=== PATIENT | male | born 1975 | race Two or more races ===

== ENCOUNTER 2020-11-10 11:17 | Outpatient (REF) | payer SELFPAY | END 2020-11-10 11:18 | disposition home or self-care (01) | LOC: HO.LAB 11:17 | PROVIDERS: Visit Provider Internal Medicine | DX: Z20.822 Contact with and (suspected) exposure to COVID-19 (principal) | CPT/HCPCS: 36415; C9803; U0003; U0005 ==

== ENCOUNTER 2021-12-20 06:22 | Emergency (ER) | payer SELFPAY ==
--- NOTE | ~2021-12-20 | CT_ITS ---
EXAMINATION: CT ABDOMEN AND PELVIS WITHOUT CONTRAST CLINICAL INFORMATION: Right flank pain COMPARISON: Ultrasound abdomen 09/16/2018 TECHNIQUE: Multidetector volumetric imaging was performed from the superior aspect of the liver through the pubic symphysis. Sagittal and coronal reformatted images were obtained on the technologist's workstation. This CT examination was performed using dose optimization techniques as appropriate, variously including the following: *Automated exposure control *Adjustment of mA and/or kV according to patient size (this includes techniques or standardized protocols for targeted exams where dose is matched to indication/reason for exam; i.e. extremities or head) *Use of iterative reconstruction technique DLP: 709 mGy-cm FINDINGS: LUNG BASES: There is a 4 mm nodule right middle lobe. There is platelike atelectasis left lung base. The heart size is normal. LIVER, GALLBLADDER, AND BILIARY TREE: The liver is normal in size, shape, and attenuation. No focal hepatic lesion or biliary ductal dilatation is present. The gallbladder is unremarkable with no evidence of radiopaque gallstones, gallbladder wall thickening, or obvious pericholecystic inflammatory changes. PANCREAS: Unremarkable. SPLEEN: Unremarkable. ADRENAL GLANDS: Unremarkable. KIDNEYS AND URETERS: The kidneys are normal in size, shape, and attenuation. No hydronephrosis, hydroureter, or calculi seen. No perinephric stranding. BLADDER: Unremarkable. GASTROINTESTINAL TRACT: There is scattered stool, diverticuli and gas seen throughout the colon without distention or diverticulitis. The small bowel loops are normal caliber. Appendix is not visualized. ABDOMINAL WALL: There is a small lumbar canal hernia containing fat. LYMPH NODES: Normal. VASCULAR: Unremarkable. PELVIC VISCERA: The prostate gland is normal size. There is no free fluid or free air. OSSEOUS STRUCTURES: Unremarkable. CT/CT abdomen pelvis wo con IMPRESSION: No acute intra-abdominal process seen. Mild constipation and scattered colonic diverticulosis. Small umbilical hernia containing intraperitoneal fat. No radiopaque urolith or hydroureteronephrosis. Fleischner guidelines were followed.
[2021-12-20 06:26] VITALS: BP 199/125; PULSE 85; RESP 16; TEMP 36.6; O2SAT 98; BMI 31.1
[2021-12-20 07:07] VITALS: BP 179/112; PULSE 82; RESP 14; O2SAT 97
--- NOTE | 2021-12-20 07:51 | ED_ITS ---
HPI - Back Pain/Injury General Chief Complaint: Back Pain/Injury Stated Complaint: back pain x3 days Time Seen by Provider: 12/20/21 07:44 Source: patient, family ( daughter) and historic interpreter Mode of arrival: ambulatory Limitations: no limitations History of Present Illness HPI Narrative: 46-year-old male came in for evaluation of right flank pain. Pain started about a week ago, describes the pain as severe pain 10/10, dull aching, localized to the right flank area with no radiation, pain is worsening with movement, no relieving factor, no associations of fever chills, history of heavy lifting at work, declined any dysuria or hematuria. No fever Or chills. Related Data Previous Rx's Medication Instructions Recorded amlodipine 5 mg tablet 5 mg PO DAILY #30 tab 12/20/21 Allergies Allergy/AdvReac Type Severity Reaction Status Date / Time No Known Allergies Allergy Mild NONE Unverified 06/22/20 16:05 Review of Systems Review of Systems: all other systems are reviewed and are negative Constitutional: Reports as per HPI and Reports no additional constitutional complaints Eyes: Reports as per HPI and Reports no additional eye complaints Reports system reviewed and no additional complaints, except as documented Cardiovascular: Reports as per HPI and Reports no additional cardiovascular complaints Respiratory: Reports as per HPI and Reports no additional respiratory complaints Gastrointestinal: Reports as per HPI and Reports no additional gastrointestinal complaints Genitourinary: Reports no additional female genitourinary complaints Musculoskeletal: Reports no additional musculoskeletal complaints Skin/Breast: Reports system reviewed and no additional complaints, except as docu Psychiatric: Reports no additional psychiatric complaints Endocrine: Reports no additional endocrine complaints Hematologic/Lymphatic: Reports no additional hematologic/lymphatic complaints Allergic/Immunologic: Reports no additional allergic/immunologic complaints Reports system reviewed and no additional complaints, except as documented and Reports Abnormal speech present [facility] Social History Social History Advance Directives: No Advance Directives Information Provided: No Physical Exam Vital Signs: Vital Signs: Last Vital Signs Temp 97.8 F 12/20/21 06:26 Pulse 85 12/20/21 10:11 Resp 16 12/20/21 10:11 BP 160/115 H 12/20/21 12:11 Pulse Ox 98 12/20/21 10:11 BMI result Body Mass Index 31.1 vital signs have been reviewed as appeared to be correct. Blood pressure elevated. Heart rate normal. Respiration rate normal. Temperature normal. Oxygen saturation normal. Appearance: Alert. Oriented X3. No acute distress. Head: Normal external exam. Normocephalic. Atraumatic. No Segura signs noted. No raccoon eyes noted Eyes: PERRLA. EOMI. Conjunctiva and sclera normal. Eyelids normal. ENT: TM's Normal. Pharynx normal. Uvula midline. Moist mucous membranes. No trismus noted. No drooling noted. No muffled voice noted. Neck: Normal inspection. Neck supple. FROM. No adenopathy. Thyroid Normal. No meningeal signs. No neck mass noted. CVS: Normal heart rate and rhythm. Heart sound normal. No murmurs noted. Pulses normal throughout. Respiratory: No respiratory distress. Painless inspiration. Breath sounds normal. No wheezes/rales/rhonchi noted. Chest nontender. No accessory muscle usage noted or decreased air movement noted. Abdomen: Soft and nontender. Bowel sounds normal in all 4 quadrants. No distention noted. No organomegaly noted. No visible injury noted. Back: No CVA tenderness. Full range of motion noted. Skin: Skin warm and dry. Normal skin color. Normal skin turgor. No rashes/lesions/lacerations noted. Extremities: No lower extremity edema. Extremities exhibit normal range of motion. Extremities nontender. Neuro: Oriented X 3. Cranial nerve exam: II-XII are grossly intact No motor deficit. No sensory deficit. Reflexes normal. Course Course Course Narrative: Assessment and plan. 46-year-old male came in with right flank pain, CT and UE ruled out kidney stone, patient's symptoms is likely due to muscular pain. Back pain is feeling better. Patient found to be hypertensive patient used to be in on antihypertensive medications that he is not taking for the last 2 years. Patient is responding well to amlodipine in the ED will start the patient on amlodipine and having follow-up with PCP. MDM - Back Pain/Injury Medical Records Attestation: I reviewed the patient's medical records. Lab Data Attestation: I reviewed the patient's lab results. Result diagrams: 12/20/21 09:39 12/20/21 09:39 Labs: Lab Results 12/20/21 12/20/21 12/20/21 Range/Units 09:39 09:39 10:14 WBC 5.3 (4.8-10.8) X10*3/uL RBC 5.04 (4.60-5.80) X10*6/uL Hgb 15.3 (14.0-18.0) g/dl Hct 46.9 (42.0-52.0) % MCV 93.1 (80.0-98.0) fL MCH 30.4 (27.0-33.0) pg MCHC 32.6 (31.0-36.0) g/dl RDW 12.1 (11.0-16.0) % Plt Count 131 L (160-400) X10*3/uL MPV 10.9 (9.4-12.4) fL Immature Gran % (Auto) 0.4 (0.0-0.4) % Neut % (Auto) 59.2 (45-73) % Lymph % (Auto) 30.6 (20-40) % Rock % (Auto) 8.5 (2-11) % Eos % (Auto) 0.9 (0-4) % Baso % (Auto) 0.4 (0-2) % Lymph # (Auto) 1.6 (1.2-4.9) X10*3/uL Rock # (Auto) 0.5 (0.1-1.2) X10*3/uL Eos # (Auto) 0.1 (0.0-0.4) X10*3/uL Baso # (Auto) 0.0 (0.0-0.2) X10*3/uL Abs Immat Gran (auto) 0.02 (0.00-0.03) X10*3/uL Absolute Neuts (auto) 3.1 (2.0-8.3) x10*3/uL Absolute Nucleated RBC 0.000 (0.0-0.012) X10*3/uL Nucleated RBC % (auto) 0.0 (0.0-0.2) /100WBC Sodium 139 (135-145) mmol/L Potassium 4.8 (3.3-5.1) mmol/L Chloride 104 (96-108) mmol/L Carbon Dioxide 29 (22-29) mmol/L Anion Gap 11 L (12-20) BUN 12 (9-16) mg/dL Creatinine 0.79 (0.5-1.4) mg/dL Estim Creat Clear Calc 126.5 Estimated GFR > 60 Random Glucose 245 H (60-115) mg/dL Calcium 9.2 (8.4-10.2) mg/dL Total Bilirubin 0.6 (0.0-1.0) mg/dL Direct Bilirubin 0.2 (0.0-0.5) mg/dL AST 22 (5-37) U/L ALT 33 (0-40) U/L Alkaline Phosphatase 51 (39-117) U/L Total Protein 6.6 (6.5-8.0) g/dL Albumin 4.1 (3.5-5.0) g/dL Lipase 42 (8-78) U/L Urine Color YELLOW Urine Appearance HAZY Urine pH 7.5 (5.0-8.0) Ur Specific [place] 1.015 (1.005-1.025) Urine Protein TRACE (NEG-TRACE) MG/DL Urine Glucose (UA) 500 H (NEG) MG/DL Urine Ketones NEG (NEG) MG/DL Urine Blood NEG (NEG) Urine Nitrite NEG (NEG) Ur Leukocyte Esterase NEG (NEG) Imaging Data CT scan - abdomen: Attestation: I personally reviewed and interpreted this imaging study as follows: Radiologist's impression: No acute intra-abdominal process seen. ? Mild constipation and scattered colonic diverticulosis. ? Small umbilical hernia containing intraperitoneal fat. ? No radiopaque urolith or hydroureteronephrosis. ? Discharge Plan Discharge Clinical Impression: Strain of lumbar region, Hypertension Patient Disposition: Home, Self-Care Instructions: Musculoskeletal Pain (ED), Hypertension (ED) Prescriptions: New amlodipine 5 mg tablet 5 mg PO DAILY Qty: 30 0RF Referrals: Physician,Unknown J [Primary Care Provider] - 2 days Stand Alone Forms: Work/School Release
[2021-12-20] MEDS: oxyCODONE HCl Immed Release 5 MG TABLET PO (08:27)
[2021-12-20] MEDS: Ibuprofen 400 MG TABLET PO (08:27)
[2021-12-20] MEDS: diazePAM 5 MG TABLET PO (08:27)
[2021-12-20 09:47] LABS: MANUAL DIFF FLAG NO
[2021-12-20] MEDS: 0.9 % Sodium Chloride 1,000 ML 999 ML IV (09:56)
[2021-12-20 09:58] LABS: Basophils Percent Auto 0.4 % (0-2); Eosinophils Absolute Auto 0.1 X10*3/uL (0.0-0.4); Eosinophils Percent Auto 0.9 % (0-4); Hematocrit 46.9 % (42.0-52.0); Hemoglobin 15.3 g/dl (14.0-18.0); Imm Gran Abs Auto 0.02 X10*3/uL (0.00-0.03); Imm Gran Pct Auto 0.4 % (0.0-0.4); Lymphocytes Absolute Auto 1.6 X10*3/uL (1.2-4.9); Lymphocytes Percent Auto 30.6 % (20-40); Mean Corpuscular HGB Conc 32.6 g/dl (31.0-36.0); Mean Corpuscular Hemoglobin 30.4 pg (27.0-33.0); Mean Corpuscular Volume 93.1 fL (80.0-98.0); Mean Platelet Volume 10.9 fL (9.4-12.4); Monocytes Absolute Auto 0.5 X10*3/uL (0.1-1.2); Monocytes Percent Auto 8.5 % (2-11); Neutrophils Absolute Auto 3.1 x10*3/uL (2.0-8.3); Neutrophils Percent Auto 59.2 % (45-73); Platelet Count 131 X10*3/uL (160-400); Red Blood Count 5.04 X10*6/uL (4.60-5.80); Red Cell Distribution Width 12.1 % (11.0-16.0); White Blood Count 5.3 X10*3/uL (4.8-10.8)
[2021-12-20 10:07] LABS: Alanine Aminotransferase 33 U/L (0-40); Albumin Level 4.1 g/dL (3.5-5.0); Alkaline Phosphatase 51 U/L (39-117); Anion Gap 11 (12-20); Aspartate Amino Transferase 22 U/L (5-37); Bilirubin Direct 0.2 mg/dL (0.0-0.5); Bilirubin Total 0.6 mg/dL (0.0-1.0); Blood Urea Nitrogen 12 mg/dL (9-16); Calcium 9.2 mg/dL (8.4-10.2); Carbon Dioxide 29 mmol/L (22-29); Chloride 104 mmol/L (96-108); Creatinine Clr Calc Pharmacy 126.5; Estimated Glomerular Filt Rate > 60; Glucose Random 245 mg/dL (60-115); Lipase 42 U/L (8-78); Potassium 4.8 mmol/L (3.3-5.1); Sodium 139 mmol/L (135-145); Total Protein 6.6 g/dL (6.5-8.0)
[2021-12-20 10:11] VITALS: PULSE 85; RESP 16; O2SAT 98
[2021-12-20 10:14] VITALS: BP 193/113
[2021-12-20 10:22] LABS: Appearance Urine HAZY; Color Urine YELLOW; Glucose Urine UA 500 MG/DL (NEG); Leukocyte Esterase Urine NEG (NEG); Nitrite Urine NEG (NEG); PH 7.5 (5.0-8.0); Specific Gravity - Urine 1.015 (1.005-1.025); Urine Blood NEG (NEG); Urine Ketones NEG (NEG); Urine Protein TRACE MG/DL (NEG-TRACE)
[2021-12-20 11:05] VITALS: BP 175/99
[2021-12-20 12:11] VITALS: BP 160/115
[2021-12-20] MEDS: amLODIPine Besylate 5 MG TABLET PO (12:49)
== END 2021-12-20 13:35 | disposition home or self-care (01) ==
PROVIDERS: Emergency Provider Emergency Medicine
DX: S39.012A Strain of muscle, fascia and tendon of lower back, initial encounter (principal); X50.0XXA Overexertion from strenuous movement or load, initial encounter; I10 Essential (primary) hypertension; Y93.89 Activity, other specified; Y92.59 Other trade areas as the place of occurrence of the external cause; Y99.0 Civilian activity done for income or pay
CPT/HCPCS: 36415; 74176; 80048; 80076; 81003; 83690; 85025; 96360; 99284; 99285

== ENCOUNTER 2022-08-08 09:18 | Inpatient (IN) | payer MEDICAID, SELFPAY ==
[2022-08-08] VITALS (8 sets, daily range): BP systolic 170–199; BP diastolic 96–106; PULSE 76–89; RESP 14–20; TEMP 36–37.1; O2SAT 96–99; BMI 32.8
--- NOTE | ~2022-08-08 | CT_ITS ---
EXAMINATION: CT ANGIOGRAM HEAD CT ANGIOGRAM NECK CLINICAL INFORMATION: Right-sided deficit. Ataxia. COMPARISON: None available. TECHNIQUE: Initial noncontrast wheel installer imaging of the head and neck was performed. Noncontrast head CT was also performed. Test bolus sequences followed by intravenous administration 70 mL of Omnipaque 350. Helical imaging was performed in the axial plane from the aortic arch to the skull vertex. Delayed postcontrast imaging of the head was also performed. The data was processed at the apparatus engineering technologist's workstation for generation of MIP sequences. Angled MIPs and volume rendered reformatted images were also generated at an offline 3D workstation. Stenoses are assessed in accordance with NASCET criteria unless otherwise indicated. This CT examination was performed using dose optimization techniques as appropriate, variously including the following: *Automated exposure control. *Adjustment of mA and/or kV according to patient size (this includes techniques or standardized protocols for targeted exams where dose is matched to indication/reason for exam; i.e. extremities or head). *Use of iterative reconstruction technique. DLP: 2405 mGy-cm FINDINGS: CT Head: There is no evidence of acute intracranial hemorrhage or edematous territorial infarction. There is a lacunar infarct within the inferior right cerebellar hemisphere. There is a lacunar infarct in the inferior right cerebellar hemisphere. Small region of encephalomalacia malacia in the parasagittal right frontal lobe with associated volume loss. Scattered and partially confluent hypoattenuation in the periventricular and deep white matter are consistent with moderate microangiopathy. This includes a lacunar infarct of the left castillo radiata/lentiform nucleus. No additional loss of cruz-white matter differentiation. Proportional prominence of the ventricles and sulcal spaces. No evidence for obstructive hydrocephalus. No abnormal mass effect or midline shift. No extra-axial fluid collections. No pathologic intra-axial enhancement. No acute soft tissue or osseous abnormalities. Moderate mucosal thickening of the right maxillary sinus. Mild mucosal thickening of the remaining paranasal sinuses. Multifocal odontogenic enamel erosions. Mild rightward nasal septal deviation. The mastoid air cells and middle ear cavities are clear. Left-sided phthisis bulbi. CT Neck: The thyroid gland and remaining cervical soft tissues are within normal limits. Straightening of the normal cervical lordosis. There is ankylosis of the left-sided C2-C3 facets. Moderate degenerative disc disease from C3-C7. Facet and uncovertebral joint arthropathy leads to osseous encroachment on the neural foramina from C3-C7. CT Upper Chest: Mild centrilobular emphysema. The visualized lung apices and upper mediastinum are within normal limits. Coronary artery calcifications: Present. Neck CTA: Aortic Arch: Normal contour and caliber with moderate calcific atherosclerotic disease. Classic 3 vessel branching pattern of the aortic arch. Great Vessel Origins: No significant stenosis of the branch origins. Right Common Carotid Artery: No focal stenosis or occlusion. Cervical Right Internal Carotid Artery: Calcific atherosclerotic disease of the carotid bulb and proximal internal carotid artery causing less than 50% stenosis. Left Common Carotid Artery: No focal stenosis or occlusion. Cervical Left Internal Carotid Artery: Calcific atherosclerotic disease of the carotid bulb and proximal internal carotid artery causing less than 50% stenosis. Cervical Right Vertebral Artery: Dominant. Evaluation of the origin is limited secondary to motion artifact at this level. Otherwise, no focal stenosis or occlusion. Cervical Left Vertebral Artery: No focal stenosis or occlusion. Brain CTA: Intracranial Internal Carotid Arteries: Calcific atherosclerotic disease of the intracranial internal carotid arteries without occlusion. Moderate stenosis of the paraophthalmic and supraclinoid segments of the left ICA. Right Anterior Cerebral Artery: Normal A1 segment. Normal opacification of the distal LUNA segments. Left Anterior Cerebral Artery: The A1 segment is diminutive. Normal opacification of the distal LUNA segments. Anterior Communicating Artery: Normal. Right Middle Cerebral Artery: Normal M1 segment of the MCA without focal stenosis or occlusion. Normal arborization of the distal segments. Left Middle Cerebral Artery: Normal M1 segment of the MCA without focal stenosis or occlusion. There is a focal moderate to high-grade stenosis of the origin of an M2 branch. Otherwise, normal arborization of the distal segments. Right Vertebral Artery: Normal V4 segment. Normal opacification of the proximal segments of the posterior inferior cerebellar artery. Left Vertebral Artery: Normal V4 segment. Normal opacification of the proximal segments of the posterior inferior cerebellar artery. Basilar Artery: Normal without focal stenosis or occlusion. Normal appearance of the proximal superior cerebellar arteries. Right Posterior Cerebral Artery: Normal P1 segment. Normal opacification of the distal JUVENILE JUSTICE OFFICER segments. Left Posterior Cerebral Artery: Normal P1 segment. Moderate stenosis of the P2-P3 junction. Otherwise, normal opacification of the distal JUV[employer]ILE JUSTICE OFFICER segments. Left dominant transverse/sigmoid sinuses. Otherwise, normal opacification of the superior sagittal, straight, transverse, and sigmoid sinuses. CT/CT head/brain wo IV con IMPRESSION: 1. No evidence of acute intracranial hemorrhage or edematous territorial infarction. 2. Moderate underlying microangiopathy and generalized cerebral volume loss. 3. Small region of encephalomalacia in the parasagittal right frontal lobe. Lacunar infarcts of the right cerebellar hemisphere and left castillo radiata/lentiform nucleus. 4. CTA of the head and neck without proximal occlusion. 5. Moderate intracranial atherosclerotic disease including stenoses of the paraophthalmic/supraclinoid segments of the left ICA, the origin of an M2 branch of the left MCA, and the P2-P3 junction of the left J[employer] JUSTICE OFFICER. This critical result was discussed with ARLETH Whitney at 11:35 on 08/08/2022 and it was ascertained that the content and urgency of the report was understood at the time of direct communication.
--- NOTE | ~2022-08-08 | MR_ITS ---
EXAMINATION: MR BRAIN WITHOUT CONTRAST CLINICAL INFORMATION: Stroke. COMPARISON: Head CT 08/08/2022. TECHNIQUE: Multiplanar, multisequence imaging of the brain was performed without intravenous contrast. FINDINGS: There is a small acute infarct within the left paramedian jake best seen on series 4 image . There is no large territorial infarction, hemorrhage, mass, or extra-axial fluid collection. Chronic infarcts are seen within the left external capsule, bilateral thalami, and in the right and left cerebellar hemispheres. Patchy T2/FLAIR hyperintensity is seen within the cerebral white matter compatible with moderate chronic microangiopathy. The corpus callosum appears diffusely thinned with volume loss demonstrated. The major arterial flow voids are preserved at the skull base. There is small amount of mastoid fluid and moderate paranasal sinus mucosal thickening/opacification including aerated secretions. Left-sided phthisis bulbi is noted. MR/MR head/brain wo con IMPRESSION: Small focus of acute infarction within the left paramedian jake compatible with a paramedian pontine head of science infarction. No large territorial infarction, hemorrhage, or mass. Chronic infarcts seen within the left external capsule, bilateral thalami, and bilateral cerebellar hemispheres. Background changes of moderate chronic microangiopathy. This critical result was discussed with ARLETH Davis on 08/08/2022 5:33 PM, and it was ascertained that the content and urgency of the report was understood at the time of direct communication.
--- NOTE | ~2022-08-08 | CT_ITS ---
EXAMINATION: CT HEAD WITHOUT CONTRAST (STROKE PROTOCOL) CLINICAL INFORMATION: Stroke protocol. Right arm numbness and tingling COMPARISON: 08/08/2022 TECHNIQUE: Contiguous axial imaging was performed from the skull base to vertex without intravenous administration of contrast. This CT examination was performed using dose optimization techniques as appropriate, variously including the following: *Automated exposure control *Adjustment of mA and/or kV according to patient size (this includes techniques or standardized protocols for targeted exams where dose is matched to indication/reason for exam; i.e. extremities or head) *Use of iterative reconstruction technique DLP: 854 mGy-cm FINDINGS: There is no evidence of acute intracranial hemorrhage or new acute territorial infarction. No abnormal mass-effect or midline shift is seen. Coburn to white matter differentiation is well preserved. No extra-axial fluid collections are identified. The ventricles are normal in size. There is moderate periventricular white matter hypoattenuation consistent with chronic small vessel ischemic disease. Evolving infarct identified in the left paramedian jake. Redemonstrated chronic foci of infarcts in the left basal ganglia and right cerebellum. The osseous structures and soft tissues are normal. Partial opacification of the right maxillary sinus. The mastoid air cells are well-aerated. Left phthisis bulbi. CT/CT head for stroke IMPRESSION: No new acute intracranial pathology. Evolving infarct in the left paramedian jake along with chronic changes as noted above. This stroke protocol result was discussed with Dr. Gloria Scott on 08/10/2022 11:36 PM.
--- NOTE | ~2022-08-08 | CT_ITS ---
EXAMINATION: CT ANGIOGRAM HEAD CT ANGIOGRAM NECK CLINICAL INFORMATION: Right-sided deficit. Ataxia. COMPARISON: None available. TECHNIQUE: Initial noncontrast card puncher imaging of the head and neck was performed. Noncontrast head CT was also performed. Test bolus sequences followed by intravenous administration 70 mL of Omnipaque 350. Helical imaging was performed in the axial plane from the aortic arch to the skull vertex. Delayed postcontrast imaging of the head was also performed. The data was processed at the nuclear cardiology technologist's workstation for generation of MIP sequences. Angled MIPs and volume rendered reformatted images were also generated at an offline 3D workstation. Stenoses are assessed in accordance with NASCET criteria unless otherwise indicated. This CT examination was performed using dose optimization techniques as appropriate, variously including the following: *Automated exposure control. *Adjustment of mA and/or kV according to patient size (this includes techniques or standardized protocols for targeted exams where dose is matched to indication/reason for exam; i.e. extremities or head). *Use of iterative reconstruction technique. DLP: 2405 mGy-cm FINDINGS: CT Head: There is no evidence of acute intracranial hemorrhage or edematous territorial infarction. There is a lacunar infarct within the inferior right cerebellar hemisphere. There is a lacunar infarct in the inferior right cerebellar hemisphere. Small region of encephalomalacia malacia in the parasagittal right frontal lobe with associated volume loss. Scattered and partially confluent hypoattenuation in the periventricular and deep white matter are consistent with moderate microangiopathy. This includes a lacunar infarct of the left castillo radiata/lentiform nucleus. No additional loss of cruz-white matter differentiation. Proportional prominence of the ventricles and sulcal spaces. No evidence for obstructive hydrocephalus. No abnormal mass effect or midline shift. No extra-axial fluid collections. No pathologic intra-axial enhancement. No acute soft tissue or osseous abnormalities. Moderate mucosal thickening of the right maxillary sinus. Mild mucosal thickening of the remaining paranasal sinuses. Multifocal odontogenic enamel erosions. Mild rightward nasal septal deviation. The mastoid air cells and middle ear cavities are clear. Left-sided phthisis bulbi. CT Neck: The thyroid gland and remaining cervical soft tissues are within normal limits. Straightening of the normal cervical lordosis. There is ankylosis of the left-sided C2-C3 facets. Moderate degenerative disc disease from C3-C7. Facet and uncovertebral joint arthropathy leads to osseous encroachment on the neural foramina from C3-C7. CT Upper Chest: Mild centrilobular emphysema. The visualized lung apices and upper mediastinum are within normal limits. Coronary artery calcifications: Present. Neck CTA: Aortic Arch: Normal contour and caliber with moderate calcific atherosclerotic disease. Classic 3 vessel branching pattern of the aortic arch. Great Vessel Origins: No significant stenosis of the branch origins. Right Common Carotid Artery: No focal stenosis or occlusion. Cervical Right Internal Carotid Artery: Calcific atherosclerotic disease of the carotid bulb and proximal internal carotid artery causing less than 50% stenosis. Left Common Carotid Artery: No focal stenosis or occlusion. Cervical Left Internal Carotid Artery: Calcific atherosclerotic disease of the carotid bulb and proximal internal carotid artery causing less than 50% stenosis. Cervical Right Vertebral Artery: Dominant. Evaluation of the origin is limited secondary to motion artifact at this level. Otherwise, no focal stenosis or occlusion. Cervical Left Vertebral Artery: No focal stenosis or occlusion. Brain CTA: Intracranial Internal Carotid Arteries: Calcific atherosclerotic disease of the intracranial internal carotid arteries without occlusion. Moderate stenosis of the paraophthalmic and supraclinoid segments of the left ICA. Right Anterior Cerebral Artery: Normal A1 segment. Normal opacification of the distal LUNA segments. Left Anterior Cerebral Artery: The A1 segment is diminutive. Normal opacification of the distal LUNA segments. Anterior Communicating Artery: Normal. Right Middle Cerebral Artery: Normal M1 segment of the MCA without focal stenosis or occlusion. Normal arborization of the distal segments. Left Middle Cerebral Artery: Normal M1 segment of the MCA without focal stenosis or occlusion. There is a focal moderate to high-grade stenosis of the origin of an M2 branch. Otherwise, normal arborization of the distal segments. Right Vertebral Artery: Normal V4 segment. Normal opacification of the proximal segments of the posterior inferior cerebellar artery. Left Vertebral Artery: Normal V4 segment. Normal opacification of the proximal segments of the posterior inferior cerebellar artery. Basilar Artery: Normal without focal stenosis or occlusion. Normal appearance of the proximal superior cerebellar arteries. Right Posterior Cerebral Artery: Normal P1 segment. Normal opacification of the distal KNOCKER OFF segments. Left Posterior Cerebral Artery: Normal P1 segment. Moderate stenosis of the P2-P3 junction. Otherwise, normal opacification of the distal KNOCKER OFF segments. Left dominant transverse/sigmoid sinuses. Otherwise, normal opacification of the superior sagittal, straight, transverse, and sigmoid sinuses. CT/CT angio head neck stroke IMPRESSION: 1. No evidence of acute intracranial hemorrhage or edematous territorial infarction. 2. Moderate underlying microangiopathy and generalized cerebral volume loss. 3. Small region of encephalomalacia in the parasagittal right frontal lobe. Lacunar infarcts of the right cerebellar hemisphere and left csatillo radiata/lentiform nucleus. 4. CTA of the head and neck without proximal occlusion. 5. Moderate intracranial atherosclerotic disease including stenoses of the paraophthalmic/supraclinoid segments of the left ICA, the origin of an M2 branch of the left MCA, and the P2-P3 junction of the left KNOCKER OFF. This critical result was discussed with ARLETH Whitney at 11:35 on 08/08/2022 and it was ascertained that the content and urgency of the report was understood at the time of direct communication.
--- NOTE | 2022-08-08 09:24 | ECG_ITS ---
Test Reason : dizziness Blood Pressure : / mmHG Vent. Rate : 079 BPM Atrial Rate : 079 BPM P-R Int : 130 ms QRS Dur : 102 ms QT Int : 366 ms P-R-T Axes : -12 004 054 degrees QTc Int : 419 ms Normal sinus rhythm Minimal voltage criteria for LVH, may be normal variant ( [employer] product ) Nonspecific ST abnormality Inferior leads Abnormal ECG ST more elevated in Inferior leads Referred By: Generic ED Physician Electronically Signed By:MAGNUS FORBES MD
[2022-08-08 09:37] LABS: MANUAL DIFF FLAG NO
[2022-08-08 09:45] LABS: Basophils Percent Auto 0.5 % (0-2); Eosinophils Absolute Auto 0.1 X10*3/uL (0.0-0.4); Eosinophils Percent Auto 0.8 % (0-4); Hematocrit 50.1 % (42.0-52.0); Hemoglobin 16.4 g/dl (14.0-18.0); Imm Gran Abs Auto 0.02 X10*3/uL (0.00-0.03); Imm Gran Pct Auto 0.3 % (0.0-0.4); Lymphocytes Absolute Auto 1.5 X10*3/uL (1.2-4.9); Mean Corpuscular HGB Conc 32.7 g/dl (31.0-36.0); Mean Corpuscular Volume 91.6 fL (80.0-98.0); Monocytes Absolute Auto 0.6 X10*3/uL (0.1-1.2); Monocytes Percent Auto 8.4 % (2-11); Neutrophils Absolute Auto 4.4 x10*3/uL (2.0-8.3); Platelet Count 134 X10*3/uL (160-400); Red Blood Count 5.47 X10*6/uL (4.60-5.80); Red Cell Distribution Width 12.1 % (11.0-16.0); White Blood Count 6.5 X10*3/uL (4.8-10.8)
[2022-08-08 09:54] LABS: Anion Gap 16 (12-20); Blood Urea Nitrogen 13 mg/dL (9-16); Calcium 9.7 mg/dL (8.4-10.2); Carbon Dioxide 26 mmol/L (22-29); Chloride 99 mmol/L (96-108); Creatinine Clr Calc Pharmacy 129.3; Estimated Glomerular Filt Rate > 60; Glucose Random 232 mg/dL (60-115); Potassium 4.2 mmol/L (3.3-5.1); Sodium 137 mmol/L (135-145)
--- NOTE | 2022-08-08 10:22 | ED_ITS ---
HPI - General Adult General Chief complaint: General Medical Stated complaint: ? Stroke Like Symptoms Time Seen by Provider: 08/08/22 10:22 Source: patient Mode of arrival: ambulatory Limitations: no limitations History of Present Illness HPI narrative: Patient is a 47 year old assigned male at with a history of left eye blindness and HTN presenting to the emergency department today with slurred speech and unsteady gait. Patient states that starting at 8:30pm last night he began to have slurred speech and feel unsteady on his feet. Patient states that he did not want to come last night but his family convinced him to come this morning. Patient denies any dizziness, lightheadedness, abdominal pain, nausea, vomiting, fever, chills, blurry vision, double vision, loss of vision, chest pain, difficulty breathing, shortness of breath, back pain, night sweats, pain with urination, increased urinary frequency, increased urinary urgency, blood in his urine or stool, syncope or a near syncopal episode, recent trauma or falls, bowel incontinence, bladder incontinence, bowel retention, bladder retention, or any other complaints at this time. Onset (ago): hour(s) (14) Severity: moderate Severity scale (1-10): 5 Relieving factors: none Exacerbating factors: none Associated symptoms: denies other symptoms Treatments prior to arrival: none Related Data Home Medications Medication Instructions Recorded Confirmed Unobtainable 08/08/22 08/08/22 Allergies Allergy/AdvReac Type Severity Reaction Status Date / Time No Known Allergies Allergy Mild NONE Unverified 06/22/20 16:05 Review of Systems Constitutional: Constitutional: Reports no additional constitutional complaints, Denies chills, Denies fever(s) and Denies night sweats Eyes: Eyes: Reports no additional eye complaints, Denies blurry vision, Denies change in vision, Denies diplopia, Denies eye discharge, Denies loss of vision and Denies eye pain ENT: Denies dizziness Cardiovascular: Cardiovascular: Reports no additional cardiovascular complaints, Denies chest pain, Denies lightheadedness, Denies Loss of Consciousness and Denies dyspnea Respiratory: Respiratory: Reports no additional respiratory complaints and Denies dyspnea Gastrointestinal: Gastrointestinal: Reports no additional gastrointestinal complaints, Denies abdominal pain, Denies melena, Denies hematochezia, Denies change in bowel habits and Denies change in stool character Genitourinary: Genitourinary: Reports no additional male genitourinary complaints, Denies hematuria, Denies oliguria, Denies difficulty urinating, Denies dysuria, Denies urinary frequency, Denies urinary hesitancy, Denies urinary incontinence and Denies urinary urgency Musculoskeletal: Musculoskeletal: Reports no additional musculoskeletal complaints, Reports abnormal gait, Denies numbness and Denies tingling Neurologic: Reports Abnormal speech present, Reports abnormal gait, Denies dizziness, Denies loss of vision, Denies numbness and Denies tingling Psychiatric: Psychiatric: Reports no additional psychiatric complaints Endocrine: Endocrine: Reports no additional endocrine complaints Hematologic/Lymphatic: Hematologic/Lymphatic: Reports no additional hematolo gic/lymphatic complaints Allergic/Immunologic: Allergic/Immunologic: Reports no additional allergic/immunologic complaints PMFSH Past Medical History Attestation statement: The following information was validated with the patient. Source: old records reviewed Medical History Diabetes Hypertension Surgical History S/P appendectomy Social History Social History Advance Directives: No Physical Exam ED Vital Signs: Vital Signs - 24 hr 08/08/22 09:21 08/08/22 11:05 08/08/22 12:44 Temperature 98 F 98.7 F Pulse Rate 83 85 76 Respiratory Rate 18 14 18 Blood Pressure 199/106 H 180/97 H 170/105 H Pulse Oximetry 98 97 97 Oxygen Delivery Method Room Air Room Air Room Air BMI result Body Mass Index 32.8 Const General: cooperative, no acute distress, alert and awake Nutritional Appearance: well nourished Orientation/consciousness: patient oriented x3 Limitations: no limitations HENMT Head: Yes normal to inspection and Yes atraumatic Ears: hearing grossly normal bilaterally and external ears normal General nose exam: Normal external nose present, no nasal discharge noted and no epistaxis Face and sinus: Yes normal facial exam, No abrasion and No laceration Mouth: Normal oral and palatal mucosa present, no drooling and no muffled voice Eyes General: appearance normal, both eyes and all related structures Periorbital: periorbital findings normal Eyelids: Yes eyelids normal Conjunctivae: conjunctivae normal Pupils: Equal, round and reactive pupils present EOM: EOMs intact bilaterally Neck Neck: Yes normal visual inspection, Yes full ROM and Yes no lymphadenopathy Chest Chest palpation & inspection: normal inspection of the chest Resp Effort & Inspection: normal respiratory effort and able to speak in complete sentences Auscultation: clear to auscultation bilaterally Cardio Rate: regular rate Rhythm: regular rhythm GI Inspection: Yes normal to inspection Neuro General: patient oriented x3 and moves all extremities Cranial nerves: Yes Equal, round and reactive pupils present Cognition (Neuro): normal cognition Speech: Abnormal speech present slurred Gait exam (Neuro): Ataxic gait present Motor exam (neuro): Abnormal motor strength present right lower extremity flexion, extension and opposition 4 / 5 Extrem General: Yes normal to inspection, Yes full ROM and Yes capillary refill normal Psych Appearance: grossly normal Mental Status: mental status grossly normal Affect: normal affect Attitude: cooperative Thought process: Normal thought process present Thought content: Normal thought content present Insight: Good insight present (Psych) NIH Stroke Scale Internal: Initial- Upon Arrival Time: 10:22 Level of Consciousness: Alert Level of Consciousness Questions: Answers both questions correctly Level of Consciousness Commands: Performs both tasks correctly Best Gaze: Normal Visual: No visual loss Facial Palsy: Minor paralyis Motor Arm (Right): No drift Motor Arm (Left): No drift Motor Leg (Right): No drift Motor Leg (Left): No drift Limb Ataxia: Present in one limb Sensory: Normal Best Language: Mild to moderate aphasia Dysarthia: Normal Extinction and Inattention: No abnormality Score: [address] [facility] Narrative Medical decision making narrative: Patient is a 47 year old assigned male at with a history of HTN and diabetes presenting to the emergency department today with slurred speech and unsteady gait. Patient's physical exam showed slurred speech with right sided tongue deviation and right sided extremity deficit. Patient's blood work was unremarkable. Patient's EKG was unremarkable. Patient's CTA head and neck showed lucunar infarcts of the right cerebellar hemisphere and left castillo radiata/leniform nucleus as well as other atherosclertoic disease related findings. I spoke to neurology who recommended ASA, admission, and an MRI. I spoke to the hospitalist team who agreed to admission. I explained my physical exam findings as well as all test results to the patient. I answered all questions asked by the patient. Patient received PO ASA. Patient verbalized a greement and understanding with this treatment plan and admission. Medical Records Medical records reviewed: Yes I reviewed the patient's medical records. Lab Data Lab results reviewed: Yes I reviewed the patient's lab results. Result diagrams: 08/08/22 09:32 08/08/22 09:32 Labs: Lab Results 08/08/22 08/08/22 08/08/22 Range/Units 09:32 09:32 10:34 WBC 6.5 (4.8-10.8) X10*3/uL RBC 5.47 (4.60-5.80) X10*6/uL Hgb 16.4 (14.0-18.0) g/dl Hct 50.1 (42.0-52.0) % MCV 91.6 (80.0-98.0) fL MCH 30.0 (27.0-33.0) pg MCHC 32.7 (31.0-36.0) g/dl RDW 12.1 (11.0-16.0) % Plt Count 134 L (160-400) X10*3/uL MPV 11.0 (9.4-12.4) fL Immature Gran % (Auto) 0.3 (0.0-0.4) % Neut % (Auto) 67.0 (45-73) % Lymph % (Auto) 23.0 (20-40) % Phelps % (Auto) 8.4 (2-11) % Eos % (Auto) 0.8 (0-4) % Baso % (Auto) 0.5 (0-2) % Lymph # (Auto) 1.5 (1.2-4.9) X10*3/uL Phelps # (Auto) 0.6 (0.1-1.2) X10*3/uL Eos # (Auto) 0.1 (0.0-0.4) X10*3/uL Baso # (Auto) 0.0 (0.0-0.2) X10*3/uL Abs Immat Gran (auto) 0.02 (0.00-0.03) X10*3/uL Absolute Neuts (auto) 4.4 (2.0-8.3) x10*3/uL Absolute Nucleated RBC 0.000 (0.0-0.012) X10*3/uL Nucleated RBC % (auto) 0.0 (0.0-0.2) /100WBC PT 11.1 (10.0-13.1) SEC INR 1.0 (0.9-1.1) APTT 28.5 (26.0-36.4) SEC Sodium 137 (135-145) mmol/L Potassium 4.2 (3.3-5.1) mmol/L Chloride 99 (96-108) mmol/L Carbon Dioxide 26 (22-29) mmol/L Anion Gap 16 (12-20) BUN 13 (9-16) mg/dL Creatinine 0.76 (0.5-1.4) mg/dL Estim Creat Clear Calc 129.3 Estimated GFR > 60 Random Glucose 232 H (60-115) mg/dL Calcium 9.7 (8.4-10.2) mg/dL COVID-19 (MATILDA) (Negative) COVID-19 Clin Com 08/08/22 Range/Units 12:35 WBC (4.8-10.8) X10*3/uL RBC (4.60-5.80) X10*6/uL Hgb (14.0-18.0) g/dl Hct (42.0-52.0) % MCV (80.0-98.0) fL MCH (27.0-33.0) pg MCHC (31.0-36.0) g/dl RDW (11.0-16.0) % Plt Count (160-400) X10*3/uL MPV (9.4-12.4) fL Immature Gran % (Auto) (0.0-0.4) % Neut % (Auto) (45-73) % Lymph % (Auto) (20-40) % Phelps % (Auto) (2-11) % Eos % (Auto) (0-4) % Baso % (Auto) (0-2) % Lymph # (Auto) (1.2-4.9) X10*3/uL Phelps # (Auto) (0.1-1.2) X10*3/uL Eos # (Auto) (0.0-0.4) X10*3/uL Baso # (Auto) (0.0-0.2) X10*3/uL Abs Immat Gran (auto) (0.00-0.03) X10*3/uL Absolute Neuts (auto) (2.0-8.3) x10*3/uL Absolute Nucleated RBC (0.0-0.012) X10*3/uL Nucleated RBC % (auto) (0.0-0.2) /100WBC PT (10.0-13.1) SEC INR (0.9-1.1) APTT (26.0-36.4) SEC Sodium (135-145) mmol/L Potassium (3.3-5.1) mmol/L Chloride (96-108) mmol/L Carbon Dioxide (22-29) mmol/L Anion Gap (12-20) BUN (9-16) mg/dL Creatinine (0.5-1.4) mg/dL Estim Creat Clear Calc Estimated GFR Random Glucose (60-115) mg/dL Calcium (8.4-10.2) mg/dL COVID-19 (MATILDA) Negative (Negative) COVID-19 Clin Com See Note Imaging Data CTA Head and Neck: Attestation: I personally reviewed and interpreted this imaging study as follows: Radiologist's impression: EXAMINATION: CT ANGIOGRAM HEAD CT ANGIOGRAM NECK CLINICAL INFORMATION: Right-sided deficit. Ataxia. COMPARISON: None available. TECHNIQUE: Initial noncontrast airplane tester imaging of the head and neck was performed. Noncontrast head CT was also performed. Test bolus sequences followed by intravenous administration 70 mL of Omnipaque 350. Helical imaging was performed in the axial plane from the aortic arch to the skull vertex. Delayed postcontrast imaging of the head was also performed. The data was processed at the principal technologist's workstation for generation of MIP sequences. Angled MIPs and volume rendered reformatted images were also generated at an offline 3D workstation. Stenoses are assessed in accordance with NASCET criteria unless otherwise indicated. This CT examination was performed using dose optimization techniques as appropriate, variously including the following: *Automated exposure control. *Adjustment of mA and/or kV according to patient size (this includes techniques or standardized protocols for targeted exams where dose is matched to indication/reason for exam; i.e. extremities or head). *Use of iterative reconstruction technique. DLP: 2405 mGy-cm FINDINGS: CT Head: There is no evidence of acute intracranial hemorrhage or edematous territorial infarction. There is a lacunar infarct within the inferior right cerebellar hemisphere. There is a lacunar infarct in the inferior right cerebellar hemisphere. Small region of encephalomalacia malacia in the parasagittal right frontal lobe with associated volume loss. Scattered and partially confluent hypoattenuation in the periventricular and deep white matter are consistent with moderate microangiopathy. This includes a lacunar infarct of the left castillo radiata/lentiform nucleus. No additional loss of cruz-white matter differentiation. Proportional prominence of the ventricles and sulcal spaces. No evidence for obstructive hydrocephalus. No abnormal mass effect or midline shift. No extra-axial fluid collections. No pathologic intra-axial enhancement. No acute soft tissue or osseous abnormalities. Moderate mucosal thickening of the right maxillary sinus. Mild mucosal thickening of the remaining paranasal sinuses. Multifocal odontogenic enamel erosions. Mild rightward nasal septal deviation. The mastoid air cells and middle ear cavities are clear. Left-sided phthisis bulbi. CT Neck: The thyroid gland and remaining cervical soft tissues are within normal limits. Straightening of the normal cervical lordosis. There is ankylosis of the left-sided C2-C3 facets. Moderate degenerative disc disease from C3-C7. Facet and uncovertebral joint arthropathy leads to osseous encroachment on the neural foramina from C3-C7. CT Upper Chest: Mild centrilobular emphysema. The visualized lung apices and upper mediastinum are within normal limits. Coronary artery calcifications: Present. Neck CTA: Aortic Arch: Normal contour and caliber with moderate calcific atherosclerotic disease. Classic 3 vessel branching pattern of the aortic arch. Great Vessel Origins: No significant stenosis of the branch origins. Right Common Carotid Artery: No focal stenosis or occlusion. Cervical Right Internal Carotid Artery: Calcific atherosclerotic disease of the carotid bulb and proximal internal carotid artery causing less than 50% stenosis. Left Common Carotid Artery: No focal stenosis or occlusion. Cervical Left Internal Carotid Artery: Calcific atherosclerotic disease of the carotid bulb and proximal internal carotid artery causing less than 50% stenosis. Cervical Right Vertebral Artery: Dominant. Evaluation of the origin is limited secondary to motion artifact at this level. Otherwise, no focal stenosis or occlusion. Cervical Left Vertebral Artery: No focal stenosis or occlusion. Brain CTA: Intracranial Internal Carotid Arteries: Calcific atherosclerotic disease of the intracranial internal carotid arteries without occlusion. Moderate stenosis of the paraophthalmic and supraclinoid segments of the left ICA. Right Anterior Cerebral Artery: Normal A1 segment. Normal opacification of the distal LUNA segments. Left Anterior Cerebral Artery: The A1 segment is diminutive. Normal opacification of the distal LUNA segments. Anterior Communicating Artery: Normal. Right Middle Cerebral Artery: Normal M1 segment of the MCA without focal stenosis or occlusion. Normal arborization of the distal segments. Left Middle Cerebral Artery: Normal M1 segment of the MCA without focal stenosis or occlusion. There is a focal moderate to high-grade stenosis of the origin of an M2 branch. Otherwise, normal arborization of the distal segments. Right Vertebral Artery: Normal V4 segment. Normal opacification of the proximal segments of the posterior inferior cerebellar artery. Left Vertebral Artery: Normal V4 segment. Normal opacification of the proximal segments of the posterior inferior cerebellar artery. Basilar Artery: Normal without focal stenosis or occlusion. Normal appearance of the proximal superior cerebellar arteries. Right Posterior Cerebral Artery: Normal P1 segment. Normal opacification of the distal [employer] segments. Left Posterior Cerebral Artery: Normal P1 segment. Moderate stenosis of the P2-P3 junction. Otherwise, normal opacification of the distal [employer] segments. Left dominant transverse/sigmoid sinuses. Otherwise, normal opacification of the superior sagittal, straight, transverse, and sigmoid sinuses. CT/CT angio head? neck stroke IMPRESSION: 1.? No evidence of acute intracranial hemorrhage or edematous territorial infarction. 2.? Moderate underlying microangiopathy and generalized cerebral volume loss. 3.? Small region of encephalomalacia in the parasagittal right frontal lobe. Lacunar infarcts of the right cerebellar hemisphere and left castillo radiata/lentiform nucleus. 4.? CTA of the head and neck without proximal occlusion. 5.? Moderate intracranial atherosclerotic disease including stenoses of the paraophthalmic/supraclinoid segments of the left ICA, the origin of an M2 branch of the left MCA, and the P2-P3 junction of the left [employer]. ? This critical result was discussed with ARLETH Whitney at 11:35 on 08/08/2022 and it was ascertained that the content and urgency of the report was understood at the time of direct communication. Dictated By: Addy Bowman DO Signed By: Electronically signed by Addy Bowman DO 08/08/22 5428 ECG Data Attestation: I personally reviewed and interpreted this ECG as follows: Prior ECG tracings: not available for review Interpretation: Vent. Rate: 079 BPM ? ? Atrial Rate: 079 BPM P-R Int: 130 ms? QRS Dur: 102 ms QT Int: 366 ms ? ? ? P-R-T Axes: -12 004 054 degrees QTc Int: 419 ms ? Normal sinus rhythm Minimal voltage criteria for LVH, may be normal variant ( Benson product ) Nonspecific ST abnormality Inferior leads Abnormal ECG ST more elevated in Inferior leads Electronically Signed By:MAGNUS FORBES MD Dictated By: Joshua Forbes MD Signed By: Electronically signed by Joshua Forbes MD 08/08/22 1306 Critical Care Time Critical Care Time Critical Care Time: Yes Total Critical Care Time: 30 Attestation: I spent 30 minutes of Critical Care Time with this patient. This does not include time spent on separately reported billable procedures. Discharge Plan Discharge Clinical Impression: Acute CVA (cerebrovascular accident), Diabetes, Hypertension Patient Disposition: Admitted As Inpatient
[2022-08-08 10:56] LABS: Prothrombin Time 11.1 SEC (10.0-13.1)
[2022-08-08 10:59] LABS: Partial Thromboplastin Time 28.5 SEC (26.0-36.4)
[2022-08-08] MEDS: iohexoL 350 MG/ML 100 ML INFUS..BTL 70 ML IV (11:06)
--- NOTE | 2022-08-08 12:18 | PHA.MEDREC ---
Pharmacy Consult ? Medication Reconciliation Pharmacy has completed the medication reconciliation. Pt's at bedside interpreting our conversation. Pt says he takes two pills a day and uses [facility] pharmacy. Nothing in claim history and I called the pharmacy to double check but they have no record of any recent fills. Pt mentioned a diabetes medication but again could not name what it was. Will let provider know.
[2022-08-08] MEDS: Aspirin 81 MG TAB.CHEW 324 MG PO (12:21)
--- NOTE | 2022-08-08 12:45 | PC.NURSE ---
Pt ambulating to bathroom with steady gait. Passed swallow evaluation, able to take medications and sips of water at this time. MRI screening form completed.
[2022-08-08 12:53] LABS: COVID-19 Test Negative (Negative); IDNOW Serial# 16C4AD1C
--- NOTE | 2022-08-08 13:09 | P.HPHOSP_ITS ---
History of Present Illness Date of Service: 08/08/22 Chief Complaint: Slurred speech This is a 47-year-old male with pertinent history of essential hypertension, non-insulin diabetes mellitus, history of left eye blindness who presents to the emergency department for evaluation of slurred speech and unste kevin gait. Patient started having slurred speech at about 20:30 last night. Also noticed that he was unsteady on his feet. Never had these symptoms before. Patient does not take any prescription medications for hypertension or diabetes. Was previously on 2 pills but discontinued as he lost his insurance. Patient did not come in last night but is family wanted him to get evaluated so he presented to the ER today. Patient continues to have abnormal speech and normal gait without resolution. Patient denies facial droop, motor extremity weakness, blurring of vision, rhythmic jerking movement of extremities, tongue bite, urinary or bowel incontinence. Denies losing consciousness, fever or chills, chest discomfort, palpitations, abdominal pain or urinary or bowel habit changes. Patient denies history of rhythm disorder In the emergency department, CT scan concerning for encephalomalacia in the right frontal lobe and lacunar infarct of the right cerebellar hemisphere and left coronal radiata Review of Systems Constitutional: Constitutional: Reports no additional constitutional complaints Cardiovascular: Cardiovascular: Reports no additional cardiovascular complaints Respiratory: Respiratory: Reports no additional respiratory complaints Gastrointestinal: Gastrointestinal: Reports no additional gastrointestinal complaints Genitourinary: Genitourinary: Reports no additional male genitourinary complaints Musculoskeletal: Musculoskeletal: Reports abnormal gait Neurologic: Reports Abnormal speech present and Reports abnormal gait [facility] Medical History Diabetes Hypertension Surgical History S/P appendectomy Social History Advance Directives: No Meds Allergies Allergy/AdvReac Type Severity Reaction Status Date / Time No Known Allergies Allergy Mild NONE Unverified 06/22/20 16:05 Active Medications: Current Medications Pharmacy Consult (Consult Rx Perform Med Rec) 1 each MISCELLANE ONCE PRN PRN Reason: Consult order Home Medications Medication Instructions Recorded Confirmed Last Taken Type Unobtainable 08/08/22 08/08/22 Unknown History Physical Exam Vital Signs and Narrative: Vital Signs: Last Vital Signs Temp 98.7 F 08/08/22 11:05 Pulse 76 08/08/22 12:44 Resp 18 08/08/22 12:44 BP 170/105 H 08/08/22 12:44 Pulse Ox 97 08/08/22 12:44 O2 Del Method 08/08/22 12:44 BMI result Body Mass Index 32.8 Middle-aged male lying in bed in no distress Neck supple, no JVD Regular rate and rhythm, S1-S2 heard Regular breath sounds bilaterally, no wheezing or crackles appreciated Abdomen soft nontender, no guarding, no rigidity Patient is awake, alert and oriented to self, place, time and person ; no pronator drift, abnormal speech, unsteady gait during ambulation, strength 5/5 in bilateral upper and lower extremity, no tongue deviation, no facial droop, uvula midline, no dysdiadochokinesia, normal tone Psych: Normal mood No pedal edema Neuro: Speech: Abnormal speech present Results Labs CBC and Chem 7: 08/08/22 09:32 08/08/22 09:32 Labs: Laboratory Results - last 24 hr 08/08/22 08/08/22 08/08/22 09:32 09:32 10:34 MCV 91.6 MCH 30.0 MCHC 32.7 RDW 12.1 Plt Count 134 L MPV 11.0 Immature Gran % (Auto) 0.3 Neut % (Auto) 67.0 Lymph % (Auto) 23.0 Garrett % (Auto) 8.4 Eos % (Auto) 0.8 Baso % (Auto) 0.5 Lymph # (Auto) 1.5 Garrett # (Auto) 0.6 Eos # (Auto) 0.1 Baso # (Auto) 0.0 Abs Immat Gran (auto) 0.02 Absolute Neuts (auto) 4.4 Absolute Nucleated RBC 0.000 Nucleated RBC % (auto) 0.0 PT 11.1 INR 1.0 APTT 28.5 Anion Gap 16 Estim Creat Clear Calc 129.3 Estimated GFR > 60 Random Glucose 232 H Calcium 9.7 COVID-19 (MATILDA) COVID-19 Clin Com 08/08/22 12:35 MCV MCH MCHC RDW Plt Count MPV Immature Gran % (Auto) Neut % (Auto) Lymph % (Auto) Garrett % (Auto) Eos % (Auto) Baso % (Auto) Lymph # (Auto) Garrett # (Auto) Eos # (Auto) Baso # (Auto) Abs Immat Gran (auto) Absolute Neuts (auto) Absolute Nucleated RBC Nucleated RBC % (auto) PT INR APTT Anion Gap Estim Creat Clear Calc Estimated GFR Random Glucose Calcium COVID-19 (MATILDA) Negative COVID-19 Clin Com See Note Imaging Radiologist's Impressions: Impressions Head CT 08/08/22 11:06 IMPRESSION: 1. No evidence of acute intracranial hemorrhage or edematous territorial infarction. 2. Moderate underlying microangiopathy and generalized cerebral volume loss. 3. Small region of encephalomalacia in the parasagittal right frontal lobe. Lacunar infarcts of the right cerebellar hemisphere and left castillo radiata/lentiform nucleus. 4. CTA of the head and neck without proximal occlusion. 5. Moderate intracranial atherosclerotic disease including stenoses of the paraophthalmic/supraclinoid segments of the left ICA, the origin of an M2 branch of the left MCA, and the P2-P3 junction of the left PARTNER MANAGER. This critical result was discussed with ARLETH Whitney at 11:35 on 08/08/2022 and it was ascertained that the content and urgency of the report was understood at the time of direct communication. Head/Neck CTA 08/08/22 11:06 IMPRESSION: 1. No evidence of acute intracranial hemorrhage or edematous territorial infarction. 2. Moderate underlying microangiopathy and generalized cerebral volume loss. 3. Small region of encephalomalacia in the parasagittal right frontal lobe. Lacunar infarcts of the right cerebellar hemisphere and left castillo radiata/lentiform nucleus. 4. CTA of the head and neck without proximal occlusion. 5. Moderate intracranial atherosclerotic disease including stenoses of the paraophthalmic/supraclinoid segments of the left ICA, the origin of an M2 branch of the left MCA, and the P2-P3 junction of the left PARTNER MANAGER. This critical result was discussed with ARLETH Whitney at 11:35 on 08/08/2022 and it was ascertained that the content and urgency of the report was understood at the time of direct communication. Assessment and Plan (1) Acute CVA (cerebrovascular accident): Status: Acute (2) Diabetes: Status: Acute (3) Hypertension: Status: Acute Plan This is a 47-year-old male with pertinent history of essential hypertension, non-insulin diabetes mellitus, history of left eye blindness who presents to the emergency department for evaluation of slurred speech and unsteady gait. #. Acute CVA -will admit patient with cardiac monitoring. Initiate dual anti-platelet therapy with high-intensity statin. Obtain MRI of brain, carotid ultrasound and transthoracic echocardiogram. Also obtaining A1c and lipid panel. Consulted Neurology. Consulted Physical therapy and Occupational therapy to evaluate and treat. NPO until bedside speech evaluation #. Essential hypertension -hold antihypertensives for permissive hypertension. Initiate as appropriate #. [id number] diabetes mellitus with hyperglycemia -initiating Accu-Cheks with sliding scale insulin. A1c pending DVT prophylaxis: Lovenox 40 mg daily Diet: Diabetic diet Full code Admit as inpatient and will require two night minimum hospital stay for evaluation of acute CVA. MRI brain and neurology consult pending. PT/OT eval for safe disposition Quality Stroke Does the patient have a stroke diagnosis?: Yes Reason for No Anti-thrombotic by Day Two: N/A - Med Ordered VTE Prior VTE?: No VTE Risk Level:: Medical - low VTE Device Contraindication: Treatment Not Indicated VTE Drug Contraindication: N/A - Med Ordered
[2022-08-08 14:19] LABS: Cholesterol 233 mg/dL; HDL Cholesterol 45 mg/dL; LDL Cholesterol Calculated 170 mg/dl; Triglycerides 92 mg/dL
[2022-08-08 14:20] LABS: Estimated Average Glucose 203 mg/dL; Hemoglobin A1c % 8.7 %
[2022-08-08 14:20] LABS: Glucose, Whole Blood 169 mg/dL (60-115)
[2022-08-08] MEDS: Enoxaparin Sodium 40 MG/0.4 ML SYRINGE SUBCUT (14:38)
[2022-08-08] MEDS: Clopidogrel Bisulfate 75 MG TABLET PO (16:16)
--- NOTE | 2022-08-08 19:25 | PM.EVENT ---
Event Note Date of Service: 08/08/22 Event Note: patient was earlier admitted for says CVA. MRI report- received by ED provider physical exam pugh patient- similar to H&P but his speech and ataxia eye somewhat better as per the patient. MRi shows posterior pontine small stroke,Chronic infarcts seen within the left external capsule, bilateral thalami, and bilateral cerebellar hemispheres. discussed with ICU- less likely need monitoring since symptoms are almost from 24 hours, neuro call placed, waiting for response. patient is on tele, neuro checks,bp moniterin, close monitoring. patient is already on aspirin Plavix and statin will follow up with neuro response. night staff is aware to follow up
[2022-08-08 19:54] LABS: Glucose, Whole Blood 260 mg/dL (60-115)
[2022-08-08] MEDS: Insulin Lispro 100 UNIT/ML 3 ML VIAL SUBCUT (23:05)
[2022-08-09 03:01] VITALS: BP 140/95; PULSE 78; RESP 20; TEMP 36.9; O2SAT 93
[2022-08-09 06:32] LABS: MANUAL DIFF FLAG NO
[2022-08-09 06:36] LABS: Basophils Percent Auto 0.4 % (0-2); Eosinophils Absolute Auto 0.1 X10*3/uL (0.0-0.4); Eosinophils Percent Auto 0.9 % (0-4); Hematocrit 50.5 % (42.0-52.0); Imm Gran Abs Auto 0.03 X10*3/uL (0.00-0.03); Imm Gran Pct Auto 0.4 % (0.0-0.4); Lymphocytes Absolute Auto 1.7 X10*3/uL (1.2-4.9); Lymphocytes Percent Auto 24.4 % (20-40); Mean Corpuscular HGB Conc 33.7 g/dl (31.0-36.0); Mean Platelet Volume 11.5 fL (9.4-12.4); Monocytes Absolute Auto 0.6 X10*3/uL (0.1-1.2); Monocytes Percent Auto 8.8 % (2-11); Neutrophils Absolute Auto 4.5 x10*3/uL (2.0-8.3); Neutrophils Percent Auto 65.1 % (45-73); Platelet Count 143 X10*3/uL (160-400); Red Blood Count 5.49 X10*6/uL (4.60-5.80); Red Cell Distribution Width 12.1 % (11.0-16.0); White Blood Count 6.9 X10*3/uL (4.8-10.8)
[2022-08-09 06:55] LABS: Anion Gap 18 (12-20); Blood Urea Nitrogen 16 mg/dL (9-16); Calcium 9.8 mg/dL (8.4-10.2); Carbon Dioxide 26 mmol/L (22-29); Chloride 99 mmol/L (96-108); Cholesterol 264 mg/dL; Creatinine Clr Calc Pharmacy 127.4; Estimated Glomerular Filt Rate > 60; Glucose Random 186 mg/dL (60-115); HDL Cholesterol 45 mg/dL; LDL Cholesterol Calculated 188 mg/dl; Potassium 4.3 mmol/L (3.3-5.1); Sodium 139 mmol/L (135-145); Triglycerides 155 mg/dL
--- NOTE | 2022-08-09 07:00 | CA_ITS ---
Transthoracic Echocardiogram Patient (Last, First, Middle): Daniel Rodriguez L Gender: Male Date of : 1975 Age: 47 Procedure Date: 08/09/2022 Procedure Type: Transthoracic Echocardiogram Location: [facility] [place] Height: 170.18 cm Weight: 95.26 kg BSA: 2.06 m2 Heart Rate: bpm BP: 180 / 105 mmHg Fence Post Driver: Referring MD: Chitra Cohn MD Symptoms: CVA, BUBBLE STUDY NEEDED Study Quality: Good ECG Rhythm: Sinus Conclusions: - The left ventricular systolic function is low normal. The visually estimated ejection fraction is between 50-55%. - There is no evidence of interatrial shunt by agitated saline. - There is mild calcification of the aortic valve. - There is mild dilatation of the ascending aorta measuring 4.00 cm. Findings Left Ventricle Normal left ventricular cavity size. There is moderately increased left ventricular wall thickness. The left ventricular systolic function is low normal. The visually estimated ejection fraction is between 50-55%. There is no evidence of regional wall motion abnormalities. Diastolic function is normal for age. Right Ventricle Normal right ventricular cavity size and systolic function. Atria Both atria are normal in size. There is no evidence of interatrial shunt by agitated saline. (rest and valsalva). Aortic Valve There is mild calcification of the aortic valve. There is no aortic valve stenosis. There is no aortic valve regurgitation. Mitral Valve The mitral valve appears normal. There is trace mitral valve regurgitation. There is no mitral valve stenosis. Pulmonic Valve The pulmonic valve is likely normal. Tricuspid Valve Normal tricuspid valve structure. There is trace tricuspid valve regurgitation. There is no evidence of pulmonary hypertension. Great Vessels There is mild dilatation of the ascending aorta measuring 4.00 cm. Venous The inferior vena cava is normal in size and collapses greater than 50% with inspiration. Pericardium/Pleural There is a trivial pericardial effusion. Prior Study Comparison No prior study available for comparison. Measurements 2D Linear Measurements IVSd: 1.43 0.6-0.9/0.6-1.0 cm LVIDd: 4.87 3.9-5.3/4.2-5.9 cm LVIDd Index: 2.36 2.4-3.2/2.2-3.1 cm/m2 LVIDs: 3.19 2.0-3.6 cm LVPWd: 1.34 0.7-1.1 cm Ao Root: 3.60 2.1-3.5 cm LA Diam: 3.60 2.7-3.8/3.0-4.0 cm LAIDs Index: 1.75 1.5-2.3 cm/m2 LV Mass: 343.66 67-162/88-224 g LV Mass Index: 166.83 43-95/49-115 g/m2 LVOT Diam: 2.30 3.0+(-)1.3 cm 2D Systolic Function EF 4C: 53.40 >55% EF 2C: 57.40 >55% EF BiP: 55.40 >55% Mitral Valve MV Pk E: 0.55 MV PK A: 0.81 MV Decel Time: 176.00 E/A: 0.70 E'Lateral: 5.33 E'Medial: 4.68 E/E' Med: 11.80 E/E' Lat: 10.40 PHT: 51.00 MVA PHT: 4.31 Decel Chase: 3.15 Aortic Valve AoV Pk Ike: 1.34 AoV Mn Ike: 0.88 AoV VTI: 0.26 AoV Pk Grad: 7.00 Aov Mn Grad: 4.00 SIDDHARTHA Cont.VTI: 2.52 LVOT LVOT Pk Ike: 0.85 LVOT Mn Ike: 0.54 LVOT VTI: 0.16 LVOT Pk Grad: 3.00 LVOT Mn Grad: 1.00 LVOT Diam: 2.30 LVOT Area: 4.15 Diastolic Function MV Pk E: 0.55 MV Pk A: 0.81 E/A: 0.70 E'Medial: 4.68 E/E' Med: 11.80 E' Laterial: 5.33 E/E' Lat: 10.40 Right Ventricle TAPSE (mm): 25.00 Tricuspid Valve TR Pk Ike: 1.88 TR Pk Grad: 14.00 RA Press: 3.00 RVSP: 17.00 Great Vessels Aorta Ao Root-2D: 3.60 2.0-3.7 cm Ao Asc: 4.00 2.1-3.4 cm Pulmonary Valve PV Pk Ike: 0.95 Peak PV Grad: 4.00 Updated in Other Vendor System with Status of Final Carloz Valentino MD electronically signed on 08/09/2022 2:18:34 PM with status of Final
[2022-08-09 07:31] LABS: Glucose, Whole Blood 233 mg/dL (60-115)
[2022-08-09 08:00] VITALS: BP 182/102; PULSE 85; RESP 16; TEMP 36.7
--- NOTE | 2022-08-09 09:28 | MHC.CM.PN ---
CM MET WITH PATIENT, AND DAUGHTER. LIVES WITH FAMILY IN AN APARTMENT. INDEPENDENT AT BASELINE, NO SERVICES OR DME. IS EMPLOYED [employer]. DOES NOT HAVE INSURANCE CURRENTLY . FINANCIAL ASSISTANCE REQUEST SENT TO FINANCIAL COUNSELORS VIA FAX. PT AND FAMILY OPEN TO HOME SERVICES IF RECOMMENDED. THEY ARE AWARE WILL NEED INSURANCE FOR THESE SERVICES. NO HCP ON FILE, PT WOULD LIKE TO COMPLETE ONE WHILE HERE. COVID VAX X3. PCP DR. HILLARY YOUNG AT [facility]. DP: HOME WITH SERVICES, WILL NEED ASSIST WHILE HERE WITH INSURANCE. CM WILL CONTINUE TO FOLLOW FOR DC NEEDS/PLAN.
[2022-08-09] MEDS: Insulin Lispro 100 UNIT/ML 3 ML VIAL SUBCUT ×3 (09:33→17:26)
[2022-08-09] MEDS: Clopidogrel Bisulfate 75 MG TABLET PO (09:34)
[2022-08-09] MEDS: Aspirin Enteric Coated 81 MG TABLET.DR PO (09:34)
[2022-08-09] MEDS: Atorvastatin Calcium 40 MG TABLET PO (09:34)
--- NOTE | 2022-08-09 09:43 | PM.NEUROCN ---
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 He continued to have that change in speech but he was able to comprehend and communicate without confusion. He was more unsteady than his usual self. Review of Systems Review of Systems: No recent cold or flu-like illness PMFSH Past Medical History Medical History Diabetes Hypertension Surgical History Surgical History S/P appendectomy Social History Social History Household Members: Spouse Housing: Apartment Do you presently have visiting nurse or other home services: No Patient Tobacco Use Status: Never used Tobacco e-Cigarette/Vaping Use: Never Used service: No Current occupational status: employed Meds Allergies Allergy/AdvReac Type Severity Reaction Status Date / Time No Known Allergies Allergy Mild NONE Unverified 06/22/20 16:05 Active Medications: Current Medications Acetaminophen (Acetaminophen 325 Mg Tablet) 650 mg PO Q6H PRN PRN Reason: Pain, Mild (Pain Scale 1-3) Aspirin (Aspirin Enteric Coated 81 Mg Tablet.) 81 mg PO DAILY [facility] Last Admin: 08/09/22 09:34 Dose: 81 mg Atorvastatin Calcium (Atorvastatin Calcium 40 Mg Tablet) 40 mg PO DAILY [facility] Last Admin: 08/09/22 09:34 Dose: 40 mg Clopidogrel Bisulfate (Clopidogrel Bisulfate 75 Mg Tablet) 75 mg PO DAILY [facility] Last Admin: 08/09/22 09:34 Dose: 75 mg Dextrose (Dextrose 50 % 25 Gm/50 Ml Syringe) 25 gm IVPUSH Q15M PRN; Protocol PRN Reason: per Hypoglycemia Standing Ord. Dextrose (Dextrose 50 % 25 Gm/50 Ml Syringe) 25 gm IVPUSH Q15M PRN; Protocol PRN Reason: per Hypoglycemia Standing Ord. Enoxaparin Sodium (Enoxaparin Sodium 40 Mg/0.4 Ml Syringe) 40 mg SUBCUT Q24H [facility] Last Admin: 08/08/22 14:38 Dose: 40 mg Glucose (Glucose Gel 15 Gm Gel..Gram.) 15 gm PO Q15M PRN; Protocol PRN Reason: per Hypoglycemia Standing Ord. Glucose (Glucose Gel 15 Gm Gel..Gram.) 15 gm PO Q15M PRN; Protocol PRN Reason: per Hypoglycemia Standing Ord. Insulin Human Lispro (Insulin Lispro 100 Unit/Ml 3 Ml Vial) 0 unit SUBCUT QIDACHS [facility]; Protocol Last Admin: 08/09/22 09:33 Dose: 4 unit Melatonin (Melatonin 3 Mg Tablet) 6 mg PO BEDTIME PRN PRN Reason: Insomnia Ondansetron HCl (Ondansetron Hcl 4 Mg/2 Ml Vial) 4 mg IVPUSH Q8H PRN PRN Reason: Nausea and Vomiting Pharmacy Consult (Consult Rx Perform Med Rec) 1 each MISCELLANE ONCE PRN PRN Reason: Consult order Home Medications Medication Instructions Recorded Confirmed Last Taken Type Unobtainable 08/08/22 08/08/22 Unknown History Physical Exam Vital Signs: Vital Signs: Last Vital Signs Temp 98.0 F 08/09/22 08:00 Pulse 85 08/09/22 08:00 Resp 16 08/09/22 08:00 BP 182/102 H 08/09/22 08:00 Pulse Ox 93 08/09/22 03:01 O2 Del Method 08/09/22 08:00 BMI result Body Mass Index 32.8 Neuro: Other: Alert and awake with moderately dysarthric speech. He did not speaking lesion. His family member is in the room who stated that his mind was okay but his speech was not. He was able to answer questions and name the family member. There was moderate left-sided ptosis and opacity of left cornea. 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 He was in a recliner chair and did not walk. In right eye extraocular muscles were intact and visual perez are full. Results Labs CBC & Chem 7: 08/09/22 06:08 08/09/22 06:08 Labs: Short CBC 08/08/22 08/09/22 Range/Units 09:32 06:08 WBC 6.5 6.9 (4.8-10.8) X10*3/uL Hgb 16.4 17.0 (14.0-18.0) g/dl Hct 50.1 50.5 (42.0-52.0) % Plt Count 134 L 143 L (160-400) X10*3/uL BMP 08/08/22 08/09/22 09:32 06:08 Sodium 137 139 Potassium 4.2 4.3 Chloride 99 99 Carbon Dioxide 26 26 BUN 13 16 Creatinine 0.76 0.77 Calcium 9[address] revealed moderate chronic microvascular ischemic disease, which was also confirmed with MRI of brain. MRI brain also revealed an acute left pontine infarct. CTA of brain and neck revealed intracranial atherosclerotic disease. 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 He also has significant intracranial atherosclerotic disease. Mainstay of management is blood pressure control, anti-platelet agent, and statin. My recommendation is to give him baby aspirin daily with clopidogrel 75 mg daily for 8 weeks and then discontinue clopidogrel. Blood pressure should be controlled. He would probably require inpatient rehab before going back to home. Speech and swallowing evaluation is also work Procedures Date of Service Date of Service: 08/09/22
[2022-08-09 12:07] LABS: Glucose, Whole Blood 245 mg/dL (60-115)
[2022-08-09] MEDS: Enoxaparin Sodium 40 MG/0.4 ML SYRINGE SUBCUT (12:47)
--- NOTE | 2022-08-09 15:23 | P.PNIM_ITS ---
Subjective Subjective Date of Service: 08/10/22 Interval History: cva , uncontrolled htn Review of Systems Patient denies any chest pain shortness of breath or abdominal pain or fever or chills slurred speech seems to be improved Physical Exam Vital Signs: Vital Signs: Last Vital Signs Temp 98.0 F 08/09/22 08:00 Pulse 85 08/09/22 08:00 Resp 16 08/09/22 08:00 BP 182/102 H 08/09/22 08:00 Pulse Ox 93 08/09/22 03:01 O2 Del Method 08/09/22 08:00 BMI result Body Mass Index 32.8 ?Middle-aged male lying in bed in no distress Neck supple, no JVD Regular rate and rhythm, S1-S2 heard Regular breath sounds bilaterally, no wheezing or crackles appreciated Abdomen soft nontender, no guarding, no rigidity aox3 ; no pronator drift, abnormal speech, strength 5/5 in bilateral upper and lower extremity gait seems to be improvin Psych: Normal mood No pedal edema Objective Data Active Medications Acetaminophen (Acetaminophen 325 Mg Tablet) 650 mg PO Q6H PRN PRN Reason: Pain, Mild (Pain Scale 1-3) Amlodipine Besylate (Amlodipine Besylate 2.5 Mg Tablet) 2.5 mg PO ONCE ONE; Protocol Stop: 08/09/22 15:23 Aspirin (Aspirin Enteric Coated 81 Mg Tablet.) 81 mg PO DAILY [facility] Last Admin: 08/09/22 09:34 Dose: 81 mg Documented By: CYN Atorvastatin Calcium (Atorvastatin Calcium 40 Mg Tablet) 40 mg PO DAILY [facility] Last Admin: 08/09/22 09:34 Dose: 40 mg Documented By: CYN Clopidogrel Bisulfate (Clopidogrel Bisulfate 75 Mg Tablet) 75 mg PO DAILY [facility] Last Admin: 08/09/22 09:34 Dose: 75 mg Documented By: CYN Dextrose (Dextrose 50 % 25 Gm/50 Ml Syringe) 25 gm IVPUSH Q15M PRN; Protocol PRN Reason: per Hypoglycemia Standing Ord. Dextrose (Dextrose 50 % 25 Gm/50 Ml Syringe) 25 gm IVPUSH Q15M PRN; Protocol PRN Reason: per Hypoglycemia Standing Ord. Enoxaparin Sodium (Enoxaparin Sodium 40 Mg/0.4 Ml Syringe) 40 mg SUBCUT Q24H [facility] Last Admin: 08/09/22 12:47 Dose: 40 mg Documented By: CYN Glucose (Glucose Gel 15 Gm Gel..Gram.) 15 gm PO Q15M PRN; Protocol PRN Reason: per Hypoglycemia Standing Ord. Glucose (Glucose Gel 15 Gm Gel..Gram.) 15 gm PO Q15M PRN; Protocol PRN Reason: per Hypoglycemia Standing Ord. Insulin Human Lispro (Insulin Lispro 100 Unit/Ml 3 Ml Vial) 0 unit SUBCUT [facility]; Protocol Last Admin: 08/09/22 12:46 Dose: 4 unit Documented By: CYN Melatonin (Melatonin 3 Mg Tablet) 6 mg PO BEDTIME PRN PRN Reason: Insomnia Ondansetron HCl (Ondansetron Hcl 4 Mg/2 Ml Vial) 4 mg IVPUSH Q8H PRN PRN Reason: Nausea and Vomiting Pharmacy Consult (Consult Rx Perform Med Rec) 1 each MISCELLANE ONCE PRN PRN Reason: Consult order Labs CBC & Chem 7: 08/09/22 06:08 08/09/22 06:08 Labs: Laboratory Results - last 24 hr 08/08/22 08/09/22 08/09/22 19:49 06:08 06:08 MCV 92.0 MCH 31.0 MCHC 33.7 RDW 12.1 Plt Count 143 L MPV 11.5 Immature Gran % (Auto) 0.4 Neut % (Auto) 65.1 Lymph % (Auto) 24.4 [place] % (Auto) 8.8 Eos % (Auto) 0.9 Baso % (Auto) 0.4 Lymph # (Auto) 1.7 [place] # (Auto) 0.6 Eos # (Auto) 0.1 Baso # (Auto) 0.0 Abs Immat Gran (auto) 0.03 Absolute Neuts (auto) 4.5 Absolute Nucleated RBC 0.000 Nucleated RBC % (auto) 0.0 Anion Gap 18 Estim Creat Clear Calc 127.4 Estimated GFR > 60 POC Glucose 260 H Random Glucose 186 H Calcium 9.8 Triglycerides Cholesterol LDL Cholesterol, Calc HDL Cholesterol 08/09/22 08/09/22 08/09/22 06:08 07:26 12:04 MCV MCH MCHC RDW Plt Count MPV Immature Gran % (Auto) Neut % (Auto) Lymph % (Auto) [place] % (Auto) Eos % (Auto) Baso % (Auto) Lymph # (Auto) [place] # (Auto) Eos # (Auto) Baso # (Auto) Abs Immat Gran (auto) Absolute Neuts (auto) Absolute Nucleated RBC Nucleated RBC % (auto) Anion Gap Estim Creat Clear Calc Estimated GFR POC Glucose 233 H 245 H Random Glucose Calcium Triglycerides 155 Cholesterol 264 LDL Cholesterol, Calc 188 HDL Cholesterol 45 Assessment and Plan (1) Acute CVA (cerebrovascular accident): Status: Acute (2) Hypertension: Status: Acute Plan ?47-year-old male with pertinent history of essential hypertension, non-insulin diabetes mellitus, history of left eye blindness who presents to the emergency department for evaluation of slurred speech and unsteady gait. #. Acute CVA pontine cva -will admit patient with cardiac monitoring.? Initiate dual anti-platelet therapy with high-intensity statin.? Obtain MRI of brain, carotid ultrasound and? transthoracic echocardiogram.? Also obtaining A1c and lipid panel.? Consulted Neurology- continue aspirin/Plavix for 8 weeks and subsequently can be switched to on aspirin., statin Consulted Physical therapy - Rehab? #.? Essential hypertension blood pressure persistently above 180/100 range will add small dose amlodipine, monitor blood pressure closely. #.? [id number] diabetes mellitus with hyperglycemia -initiating Accu-Cheks with sliding scale insulin.? A1c 8.7 DVT prophylaxis: Lovenox 40 mg daily ongoing inpatient need: Acute is CVA, awaiting rehab placement. Quality Stroke Does the patient have a stroke diagnosis?: Yes Reason for No Anti-thrombotic by Day Two: N/A - Med Ordered VTE Prior VTE?: No VTE Risk Level:: Medical - low VTE Device Contraindication: Treatment Not Indicated VTE Drug Contraindication: N/A - Med Ordered
--- NOTE | 2022-08-09 15:34 | MHC.STROKE ---
08/08/22 0918 WALK-IN, BROUGHT IN BY FAMILY, RIGHT SIDED WEAKNESS, ATAXIA, SLURRED SPEECH ONSET 08/08/22 AT 2030. OUT OF THE WINDOW FOR TPA-ALTEPLASE. CTA AND CT HEAD DONE NO LVO, NO BLEED, FOLLOWED UP WITH MRI + FOR LEFT SHARLENE ISCHEMIC STROKE. PASSED SWALLOW SCREEN, STARTED ON ASPIRIN AND PLAVIX, STATIN. I MET WITH HE AND HIS YESTERDAY TO INITIATE STROKE EDUCATION, TODAY I REINFORCED THE STROKE EDUCATION WITH THE ENTIRE FAMILY AND PATIENT. WE DISCUSSED HIS INDIVIDUAL RISK FACTORS,MEDICATIONS AND WHY HE NEEDS THESE SPECIFIC MEDS, I GAVE THEM A SCREENSHOT OF HIS MRI AND THE LOCATION OF THE STROKE AND CORRESPONDING SYMPTOMS, I ANSWERED ALL THEIR QUESTIONS AND PROVIDED ENCOURAGEMENT. HE DOES NOT HAVE A PC OR INSURANCE AND THIS IS A BARRIER TO HIS REHAB. CASE MANAGEMENT IS AWARE. I WILL CONTINUE TO FOLLOW.
[2022-08-09 15:41] VITALS: BP 178/62
[2022-08-09 16:02] VITALS: BP 189/114; PULSE 98; RESP 18; TEMP 36.6; O2SAT 97
[2022-08-09 16:24] LABS: Glucose, Whole Blood 231 mg/dL (60-115)
[2022-08-09] MEDS: amLODIPine Besylate 2.5 MG TABLET PO (17:26)
[2022-08-09 18:59] VITALS: BP 188/111; PULSE 90; RESP 16; TEMP 36.9; O2SAT 97
[2022-08-09 19:55] LABS: Glucose, Whole Blood 134 mg/dL (60-115)
[2022-08-10] VITALS (7 sets, daily range): BP systolic 130–200; BP diastolic 90–115; PULSE 76–96; RESP 18–20; TEMP 36.2–36.9; O2SAT 94–100
[2022-08-10 07:43] LABS: Glucose, Whole Blood 193 mg/dL (60-115)
[2022-08-10] MEDS: Insulin Lispro 100 UNIT/ML 3 ML VIAL SUBCUT ×4 (08:04→20:22)
[2022-08-10] MEDS: Clopidogrel Bisulfate 75 MG TABLET PO (08:04)
[2022-08-10] MEDS: Aspirin Enteric Coated 81 MG TABLET.DR PO (08:04)
[2022-08-10] MEDS: Atorvastatin Calcium 40 MG TABLET PO (08:04)
[2022-08-10] MEDS: amLODIPine Besylate 2.5 MG TABLET PO ×2 (08:55→17:59)
--- NOTE | 2022-08-10 10:26 | P.PNIM_ITS ---
Subjective Subjective Date of Service: 08/10/22 Interval History: cva , uncontrolled htn Review of Systems Patient denies any chest pain shortness of breath or abdominal pain or fever or chills ?slurred speech? seems to be improved Physical Exam Vital Signs: Vital Signs: Last Vital Signs Temp 97.3 F 08/10/22 07:34 Pulse 82 08/10/22 07:34 Resp 20 08/10/22 07:34 BP 172/102 H 08/10/22 07:34 Pulse Ox 99 08/10/22 07:34 O2 Del Method 08/10/22 07:34 BMI result Body Mass Index 32.8 ? ?Middle-aged male lying in bed in no distress Neck supple, no JVD Regular rate and rhythm, S1-S2 heard Regular breath sounds bilaterally, no wheezing or crackles appreciated Abdomen soft nontender, no guarding, no rigidity aox3? ; no pronator drift, abnormal speech, strength 5/5 in bilateral upper and lower extremity gait seems to be improvin Psych: Normal mood No pedal edema Objective Data Active Medications Acetaminophen (Acetaminophen 325 Mg Tablet) 650 mg PO Q6H PRN PRN Reason: Pain, Mild (Pain Scale 1-3) Amlodipine Besylate (Amlodipine Besylate 2.5 Mg Tablet) 2.5 mg PO DAILY [facility]; Protocol Last Admin: 08/10/22 08:55 Dose: 2.5 mg Documented By: CHAS Aspirin (Aspirin Enteric Coated 81 Mg Tablet.) 81 mg PO DAILY [facility] Last Admin: 08/10/22 08:04 Dose: 81 mg Documented By: CHAS Atorvastatin Calcium (Atorvastatin Calcium 40 Mg Tablet) 40 mg PO DAILY [facility] Last Admin: 08/10/22 08:04 Dose: 40 mg Documented By: CHAS Clopidogrel Bisulfate (Clopidogrel Bisulfate 75 Mg Tablet) 75 mg PO DAILY [facility] Last Admin: 08/10/22 08:04 Dose: 75 mg Documented By: CHAS Dextrose (Dextrose 50 % 25 Gm/50 Ml Syringe) 25 gm IVPUSH Q15M PRN; Protocol PRN Reason: per Hypoglycemia Standing Ord. Dextrose (Dextrose 50 % 25 Gm/50 Ml Syringe) 25 gm IVPUSH Q15M PRN; Protocol PRN Reason: per Hypoglycemia Standing Ord. Enoxaparin Sodium (Enoxaparin Sodium 40 Mg/0.4 Ml Syringe) 40 mg SUBCUT Q24H [facility] Last Admin: 08/09/22 12:47 Dose: 40 mg Documented By: CYN Glucose (Glucose Gel 15 Gm Gel..Gram.) 15 gm PO Q15M PRN; Protocol PRN Reason: per Hypoglycemia Standing Ord. Glucose (Glucose Gel 15 Gm Gel..Gram.) 15 gm PO Q15M PRN; Protocol PRN Reason: per Hypoglycemia Standing Ord. Insulin Human Lispro (Insulin Lispro 100 Unit/Ml 3 Ml Vial) 0 unit SUBCUT QIDACHS [facility]; Protocol Last Admin: 08/10/22 08:04 Dose: 2 unit Documented By: CHAS Melatonin (Melatonin 3 Mg Tablet) 6 mg PO BEDTIME PRN PRN Reason: Insomnia Ondansetron HCl (Ondansetron Hcl 4 Mg/2 Ml Vial) 4 mg IVPUSH Q8H PRN PRN Reason: Nausea and Vomiting Pharmacy Consult (Consult Rx Perform Med Rec) 1 each MISCELLANE ONCE PRN PRN Reason: Consult order Labs CBC & Chem 7: 08/09/22 06:08 08/09/22 06:08 Labs: Laboratory Results - last 24 hr 08/09/22 08/09/22 08/09/22 12:04 16:20 19:43 POC Glucose 245 H 231 H 134 H 08/10/22 07:32 POC Glucose 193 H Assessment and Plan (1) Acute CVA (cerebrovascular accident): Status: Acute (2) Hypertension: Status: Acute Plan ?47-year-old male with pertinent history of essential hypertension, non-insulin diabetes mellitus, history of left eye blindness who presents to the emergency department for evaluation of slurred speech and unsteady gait. #. Acute CVA pontine cva -will admit patient with cardiac monitoring.? Initiate dual anti-platelet therapy with high-intensity statin.? Obtain MRI of brain, carotid ultrasound and? transthoracic echocardiogram.? Also obtaining A1c and lipid panel.? Co nsulted Neurology- continue aspirin/Plavix for 8 weeks and subsequently can be switched to on aspirin., statin Consulted Physical therapy - Rehab? #.uncontrolled hypertension blood pressure persistently above 180/100 range added amlodipine, monitor blood pressure closely. #.? [id number] diabetes mellitus with hyperglycemia -initiating Accu-Cheks with sliding scale insulin.? A1c 8.7 DVT prophylaxis: Vandananox 40 mg daily code status was discussed with family in detail with the help of mines inspector length patient is full code. ongoing inpatient need: Acute is CVA, uncontrolled htn- need blood pressure moniter , home services also -case management working on it Quality Stroke Does the patient have a stroke diagnosis?: Yes Reason for No Anti-thrombotic by Day Two: N/A - Med Ordered VTE Prior VTE?: No VTE Risk Level:: Medical - low VTE Device Contraindication: Treatment Not Indicated VTE Drug Contraindication: N/A - Med Ordered
[2022-08-10 11:39] LABS: Glucose, Whole Blood 241 mg/dL (60-115)
[2022-08-10] MEDS: Enoxaparin Sodium 40 MG/0.4 ML SYRINGE SUBCUT (13:15)
[2022-08-10 16:14] LABS: Glucose, Whole Blood 214 mg/dL (60-115)
[2022-08-10 19:32] LABS: Glucose, Whole Blood 190 mg/dL (60-115)
[2022-08-11 03:58] VITALS: BP 158/110; PULSE 76; RESP 20; TEMP 37; O2SAT 96
--- NOTE | 2022-08-11 04:21 | PC.NURSE ---
Around 22:30 patient complaining of right arm and right leg tingling. Sports Recruiter called in to help assess patient and get more understating of what was taking place. Made aware that this happened last by . Overnight hospitalist made aware and head CT done. Later in night bp was elevated and overnight hospitalist made aware. Patient able to get up and walk without difficult and no complaint of headache
[2022-08-11 07:12] LABS: Glucose, Whole Blood 171 mg/dL (60-115)
[2022-08-11 07:24] VITALS: BP 166/98; PULSE 83; RESP 20; TEMP 36.8; O2SAT 98
[2022-08-11] MEDS: Insulin Lispro 100 UNIT/ML 3 ML VIAL SUBCUT ×4 (08:00→20:00)
[2022-08-11] MEDS: Clopidogrel Bisulfate 75 MG TABLET PO (08:01)
[2022-08-11] MEDS: Atorvastatin Calcium 40 MG TABLET PO (08:01)
[2022-08-11] MEDS: amLODIPine Besylate 2.5 MG TABLET PO (08:01)
[2022-08-11] MEDS: Aspirin Enteric Coated 81 MG TABLET.DR PO (08:01)
--- NOTE | 2022-08-11 10:42 | P.PNIM_ITS ---
Subjective Subjective Date of Service: 08/12/22 Interval History: cva , uncontrolled htn Review of Systems overnight events reviewed-? possible complaint of right arm numbness, overnight had head CT- seems as similar before. patient numbness seems to be improved, also walking denies any chest pain or shortness of breath or abdominal pain. Physical Exam Vital Signs: Vital Signs: Last Vital Signs Temp 98.2 F 08/11/22 07:24 Pulse 83 08/11/22 07:24 Resp 20 08/11/22 07:24 BP 166/98 H 08/11/22 07:24 Pulse Ox 98 08/11/22 07:24 O2 Del Method 08/11/22 07:24 FiO2 94 08/10/22 19:26 BMI result Body Mass Index 32.8 Middle-aged male lying in bed in no distress Neck supple, no JVD Regular rate and rhythm, S1-S2 heard Regular breath sounds bilaterally, no wheezing or crackles appreciated Abdomen soft nontender, no guarding, no rigidity aox3? ; no pronator drift, abnormal speech, strength 5/5 in bilateral upper and lower extremity gait seems to be improvin Psych: Normal mood No pedal edema Objective Data Active Medications Acetaminophen (Acetaminophen 325 Mg Tablet) 650 mg PO Q6H PRN PRN Reason: Pain, Mild (Pain Scale 1-3) Amlodipine Besylate (Amlodipine Besylate 2.5 Mg Tablet) 2.5 mg PO DAILY [facility]; Protocol Last Admin: 08/11/22 08:01 Dose: 2.5 mg Documented By: CHAS Aspirin (Aspirin Enteric Coated 81 Mg Tablet.) 81 mg PO DAILY [facility] Last Admin: 08/11/22 08:01 Dose: 81 mg Documented By: CHAS Atorvastatin Calcium (Atorvastatin Calcium 40 Mg Tablet) 40 mg PO DAILY [facility] Last Admin: 08/11/22 08:01 Dose: 40 mg Documented By: CHAS Clopidogrel Bisulfate (Clopidogrel Bisulfate 75 Mg Tablet) 75 mg PO DAILY [facility] Last Admin: 08/11/22 08:01 Dose: 75 mg Documented By: CHAS Dextrose (Dextrose 50 % 25 Gm/50 Ml Syringe) 25 gm IVPUSH Q15M PRN; Protocol PRN Reason: per Hypoglycemia Standing Ord. Dextrose (Dextrose 50 % 25 Gm/50 Ml Syringe) 25 gm IVPUSH Q15M PRN; Protocol PRN Reason: per Hypoglycemia Standing Ord. Docusate Sodium (Docusate Sodium 100 Mg Capsule) 100 mg PO BEDTIME PRN PRN Reason: Constipation Enoxaparin Sodium (Enoxaparin Sodium 40 Mg/0.4 Ml Syringe) 40 mg SUBCUT Q24H [facility] Last Admin: 08/10/22 13:15 Dose: 40 mg Documented By: CHAS Glucose (Glucose Gel 15 Gm Gel..Gram.) 15 gm PO Q15M PRN; Protocol PRN Reason: per Hypoglycemia Standing Ord. Glucose (Glucose Gel 15 Gm Gel..Gram.) 15 gm PO Q15M PRN; Protocol PRN Reason: per Hypoglycemia Standing Ord. Insulin Human Lispro (Insulin Lispro 100 Unit/Ml 3 Ml Vial) 0 unit SUBCUT QIDACHS [facility]; Protocol Last Admin: 08/11/22 08:00 Dose: 2 unit Documented By: CHAS Melatonin (Melatonin 3 Mg Tablet) 6 mg PO BEDTIME PRN PRN Reason: Insomnia Ondansetron HCl (Ondansetron Hcl 4 Mg/2 Ml Vial) 4 mg IVPUSH Q8H PRN PRN Reason: Nausea and Vomiting Pharmacy Consult (Consult Rx Perform Med Rec) 1 each MISCELLANE ONCE PRN PRN Reason: Consult order Polyethylene Glycol (Polyethylene Glycol 3350 17 Gm Powd.Pack) 17 gm PO DAILY PRN PRN Reason: Constipation Labs CBC & Chem 7: 08/09/22 06:08 08/09/22 06:08 Labs: Laboratory Results - last 24 hr 08/10/22 08/10/22 08/11/22 16:02 19:20 07:08 POC Glucose 214 H 190 H 171 H Assessment and Plan (1) Acute CVA (cerebrovascular accident): Status: Acute (2) Hypertension: Status: Acute Plan 47-year-old male with pertinent history of essential hypertension, non- insulin diabetes mellitus, history of left eye blindness who presents to the emergency department for evaluation of slurred speech and unsteady gait. #. Acute CVA pontine cva mri intail-pontine cva ? possible complaint of right arm numbness, overnight had head CT- seems as similar before. patient numbness seems to be improved cardiac monitoring.? Initiate dual anti-platelet therapy with high-intensity statin.? echo: Conclusions: - The left ventricular systolic function is low normal.? The ? ? visually estimated ejection fraction is between 50-55%.? - There is no evidence of interatrial shunt by agitated saline.? - There is mild calcification of the aortic valve.? ? Consulted Neurology- continue aspirin/Plavix for 8 weeks and subsequently can be switched to on aspirin., statin ? #.uncontrolled hypertension ?blood pressure improvin continue? amlodipine, monitor blood pressure closely. #.? [id number]-wzcueqhao diabetes mellitus with hyperglycemia -initiating Accu-Cheks with sliding scale insulin.? A1c 8.7 DVT prophylaxis: Lovenox 40 mg daily ?code status was discussed with family in detail? with the help of sap hana architect length patient is full code. ?ongoing inpatient need: ? Acute is CVA, uncontrolled htn- need blood pressure moniter , home services also -case management working on it since can not go to rehab Quality Stroke Does the patient have a stroke diagnosis?: Yes Reason for No Anti-thrombotic by Day Two: N/A - Med Ordered VTE Prior VTE?: No VTE Risk Level:: Medical - low VTE Device Contraindication: Treatment Not Indicated VTE Drug Contraindication: N/A - Med Ordered
[2022-08-11 11:17] LABS: Glucose, Whole Blood 200 mg/dL (60-115)
[2022-08-11 11:25] VITALS: BP 152/90; PULSE 85; RESP 20; TEMP 36.8; O2SAT 97
[2022-08-11] MEDS: Docusate Sodium 100 MG CAPSULE PO (12:05)
[2022-08-11] MEDS: Enoxaparin Sodium 40 MG/0.4 ML SYRINGE SUBCUT (12:05)
[2022-08-11 15:33] VITALS: BP 172/112; PULSE 97; RESP 18; TEMP 36.2; O2SAT 97
[2022-08-11 16:09] LABS: Glucose, Whole Blood 189 mg/dL (60-115)
[2022-08-11 19:30] VITALS: BP 186/106; PULSE 86; RESP 17; TEMP 36.1; O2SAT 96
[2022-08-11 19:51] LABS: Glucose, Whole Blood 180 mg/dL (60-115)
[2022-08-11 23:25] VITALS: BP 143/99; PULSE 75; RESP 18; TEMP 36.7; O2SAT 97
[2022-08-12] VITALS (8 sets, daily range): BP systolic 160–191; BP diastolic 90–119; PULSE 77–90; RESP 16–19; TEMP 36–36.9; O2SAT 97–99
[2022-08-12 07:53] LABS: Glucose, Whole Blood 219 mg/dL (60-115)
[2022-08-12] MEDS: Insulin Lispro 100 UNIT/ML 3 ML VIAL SUBCUT ×4 (08:32→20:41)
[2022-08-12] MEDS: Clopidogrel Bisulfate 75 MG TABLET PO (08:34)
[2022-08-12] MEDS: Atorvastatin Calcium 40 MG TABLET PO (08:34)
[2022-08-12] MEDS: Aspirin Enteric Coated 81 MG TABLET.DR PO (08:35)
[2022-08-12] MEDS: amLODIPine Besylate 2.5 MG TABLET PO ×2 (08:35→14:36)
--- NOTE | 2022-08-12 09:51 | MHC.CM.PN ---
CM SPOKE WITH FINANCIAL COUNSELOR JERRY GONZALEZ REGARDING STATUS OF MH APPLICATION. FAMILY HAS BROUGHT IN NECESSARY PAPERWORK AND JERRY WILL GET BACK TO ME ONCE SHE REACHES MH REP. CM WILL CONTINUE TO FOLLOW.
--- NOTE | 2022-08-12 10:34 | P.PNIM_ITS ---
Subjective Subjective Date of Service: 08/12/22 Interval History: cva ,uncontrolled htn Review of Systems denies any chest pain or shortness of breath or abdominal pain or fever chills or cough or phlegm. Physical Exam Vital Signs: Vital Signs: Last Vital Signs Temp 97.9 F 08/12/22 07:40 Pulse 89 08/12/22 07:40 Resp 17 08/12/22 07:40 BP 170/108 H 08/12/22 10:07 Pulse Ox 99 08/12/22 07:40 O2 Del Method 08/12/22 07:40 FiO2 94 08/10/22 19:26 BMI result Body Mass Index 32.8 Middle-aged male lying in bed in no distress Neck supple, no JVD Regular rate and rhythm, S1-S2 heard Regular breath sounds bilaterally, no wheezing or crackles appreciated Abdomen soft nontender, no guarding, no rigidity aox3? ; no pronator drift, abnormal speech, strength 5/5 in bilateral upper and lower extremity gait seems to be improvin Psych: Normal mood No pedal edema Objective Data Active Medications Acetaminophen (Acetaminophen 325 Mg Tablet) 650 mg PO Q6H PRN PRN Reason: Pain, Mild (Pain Scale 1-3) Amlodipine Besylate (Amlodipine Besylate 2.5 Mg Tablet) 2.5 mg PO DAILY [facility]; Protocol Last Admin: 08/12/22 08:35 Dose: 2.5 mg Documented By: MADELINE Aspirin (Aspirin Enteric Coated 81 Mg Tablet.) 81 mg PO DAILY [facility] Last Admin: 08/12/22 08:35 Dose: 81 mg Documented By: MADELINE Atorvastatin Calcium (Atorvastatin Calcium 40 Mg Tablet) 40 mg PO DAILY [facility] Last Admin: 08/12/22 08:34 Dose: 40 mg Documented By: MADELINE Clopidogrel Bisulfate (Clopidogrel Bisulfate 75 Mg Tablet) 75 mg PO DAILY [facility] Last Admin: 08/12/22 08:34 Dose: 75 mg Documented By: MADELINE Dextrose (Dextrose 50 % 25 Gm/50 Ml Syringe) 25 gm IVPUSH Q15M PRN; Protocol PRN Reason: per Hypoglycemia Standing Ord. Dextrose (Dextrose 50 % 25 Gm/50 Ml Syringe) 25 gm IVPUSH Q15M PRN; Protocol PRN Reason: per Hypoglycemia Standing Ord. Docusate Sodium (Docusate Sodium 100 Mg Capsule) 100 mg PO BEDTIME PRN PRN Reason: Constipation Last Admin: 08/11/22 12:05 Dose: 100 mg Documented By: CHAS Enoxaparin Sodium (Enoxaparin Sodium 40 Mg/0.4 Ml Syringe) 40 mg SUBCUT Q24H [facility] Last Admin: 08/11/22 12:05 Dose: 40 mg Documented By: CHAS Glucose (Glucose Gel 15 Gm Gel..Gram.) 15 gm PO Q15M PRN; Protocol PRN Reason: per Hypoglycemia Standing Ord. Glucose (Glucose Gel 15 Gm Gel..Gram.) 15 gm PO Q15M PRN; Protocol PRN Reason: per Hypoglycemia Standing Ord. Hydralazine HCl (Hydralazine Hcl 20 Mg/Ml Vial) 5 mg IVPUSH Q6H PRN; Protocol PRN Reason: elevated bp Insulin Human Lispro (Insulin Lispro 100 Unit/Ml 3 Ml Vial) 0 unit SUBCUT QIDACHS [facility]; Protocol Last Admin: 08/12/22 08:32 Dose: 4 unit Documented By: MADELINE Melatonin (Melatonin 3 Mg Tablet) 6 mg PO BEDTIME PRN PRN Reason: Insomnia Ondansetron HCl (Ondansetron Hcl 4 Mg/2 Ml Vial) 4 mg IVPUSH Q8H PRN PRN Reason: Nausea and Vomiting Pharmacy Consult (Consult Rx Perform Med Rec) 1 each MISCELLANE ONCE PRN PRN Reason: Consult order Polyethylene Glycol (Polyethylene Glycol 3350 17 Gm Powd.Pack) 17 gm PO DAILY PRN PRN Reason: Constipation Labs CBC & Chem 7: 08/09/22 06:08 08/09/22 06:08 Labs: Laboratory Results - last 24 hr 08/11/22 08/11/22 08/11/22 11:13 15:51 19:47 POC Glucose 200 H 189 H 180 H 08/12/22 07:49 POC Glucose 219 H Assessment and Plan (1) Acute CVA (cerebrovascular accident): Status: Acute (2) Hypertension: Status: Acute Plan 47-year-old male with pertinent history of essential hypertension, non- insulin diabetes mellitus, history of left eye blindness who presents to the emergency department for evaluation of slurred speech and unsteady gait. #. Acute CVA pontine cva mri intail-pontine cva ? possible complaint of right arm numbness, overnight had head CT- seems as similar before. patient numbness seems to be improved cardiac monitoring.? Initiate dual anti-platelet therapy with high-intensity statin.? echo: Conclusions: - The left ventricular systolic function is low normal.? The ? ? visually estimated ejection fraction is between 50-55%.? - There is no evidence of interatrial shunt by agitated saline.? - There is mild calcification of the aortic valve.? ? Consulted Neurology- continue aspirin/Plavix for 8 weeks and subsequently can be switched to on aspirin., statin ? #.uncontrolled hypertension ?blood pressure improvin permissive htn will adjust amlodipine, monitor blood pressure closely-also added prn hydralazine. #.? Wcy-shkhnqs-snsdeijxe diabetes mellitus with hyperglycemia -initiating Accu-Cheks with sliding scale insulin.? A1c 8.7 DVT prophylaxis: Lovenox 40 mg daily ?code status was discussed with family in detail? with the help of interpreter and translator length patient is full code. ?ongoing inpatient need: ? Acute is CVA, uncontrolled htn- need blood pressure moniter , home services also -case management working on it since can not go to rehab Quality Stroke Does the patient have a stroke diagnosis?: Yes Reason for No Anti-thrombotic by Day Two: N/A - Med Ordered VTE Prior VTE?: No VTE Risk Level:: Medical - low VTE Device Contraindication: Treatment Not Indicated VTE Drug Contraindication: N/A - Med Ordered
[2022-08-12 11:26] LABS: Glucose, Whole Blood 243 mg/dL (60-115)
[2022-08-12] MEDS: Enoxaparin Sodium 40 MG/0.4 ML SYRINGE SUBCUT (14:36)
[2022-08-12 16:12] LABS: Glucose, Whole Blood 204 mg/dL (60-115)
[2022-08-12 20:11] LABS: Glucose, Whole Blood 160 mg/dL (60-115)
[2022-08-13 03:40] VITALS: BP 160/82; PULSE 71; RESP 16; TEMP 36.1; O2SAT 99
[2022-08-13 07:14] VITALS: BP 158/92; PULSE 97; RESP 18; TEMP 36.4; O2SAT 98
[2022-08-13 07:25] LABS: Glucose, Whole Blood 181 mg/dL (60-115)
[2022-08-13] MEDS: Clopidogrel Bisulfate 75 MG TABLET PO (08:03)
[2022-08-13] MEDS: Insulin Lispro 100 UNIT/ML 3 ML VIAL SUBCUT ×3 (08:03→21:09)
[2022-08-13] MEDS: Aspirin Enteric Coated 81 MG TABLET.DR PO (08:03)
[2022-08-13] MEDS: Atorvastatin Calcium 40 MG TABLET PO (08:04)
[2022-08-13] MEDS: amLODIPine Besylate 5 MG TABLET PO (08:04)
[2022-08-13 11:15] VITALS: BP 170/94; PULSE 88; TEMP 36.5; O2SAT 98
[2022-08-13 11:18] LABS: Glucose, Whole Blood 258 mg/dL (60-115)
--- NOTE | 2022-08-13 11:31 | P.DS_ITS ---
DS: Providers Provider Date of Service: 08/13/22 Date of admission: 08/08/22 13:09 Primary care physician: Yuliya Morris MD Consults: 08/08/22 13:09 Consult to Neurology Routine Consulting Provider: Lela Forbes Reason for consultation: Acute CVA DS: Diagnosis Discharge Diagnosis (1) Acute CVA (cerebrovascular accident): Status: Acute (2) Hypertension: Status: Acute DS: Summary Hospital Course Hospital Course: Chief Complaint: Slurred speech This is a 47-year-old male with pertinent history of essential hypertension, non-insulin diabetes mellitus, history of left eye blindness who presents to the emergency department for evaluation of slurred speech and unsteady gait.? Patient started having slurred speech at about 20:30 last ni ght.? Also noticed that he was unsteady on his feet.? Never had these symptoms before.? Patient does not take any prescription medications for hypertension or diabetes.? Was previously on 2 pills but discontinued as he lost his insurance.? Patient did not come in last night but is family wanted him to get evaluated so he presented to the ER today.? Patient continues to have abnormal speech and normal gait without resolution.? Patient denies facial droop, motor extremity weakness, blurring of vision, rhythmic jerking movement of extremities, tongue bite, urinary or bowel incontinence.? Denies losing consciousness, fever or chills, chest discomfort, palpitations, abdominal pain or urinary or bowel habit changes.? Patient denies history of rhythm disorder In the emergency department, CT scan concerning for encephalomalacia in the right frontal lobe and lacunar infarct of the right cerebellar hemisphere and left coronal radiata Hospital course: Patient was admitted for acute CVA impacting his speech and right sided weakness and unsteady gait. CT of the head showed ?Small region of encephalomalacia in the parasagittal right frontal lobe. Lacunar infarcts of the right cerebellar hemisphere and left castillo radiata/lentiform nucleus. 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 He was seen by Dr. Diallo (neurologist) with the following recomendation:?Mainstay of management is blood pressure control, anti-platelet agent, and statin.? My recommendation is to give him baby aspirin daily with clopidogrel 75 mg daily for 8 weeks and then discontinue clopidogrel.? Blood pressure should be controlled.? He would probably require inpatient rehab before going back to home.? Patient has been followed by PT and has continued to made progress including his main issues of having difficulty getting to 3rd floor appartment with PT assistance he has been able to go up stairs and he [facility]. He will thus go home with PT, OT and speech. He has been started on blood pressure medication with Norvasc 5 and Lisinopril 5 mg daily and will probably need further meds adjustement. He will be on Lipitor to control lipids Time Spent with Patient Time attestation: Total time spent providing and/or coordinating discharge services: Discharge coordination time: Greater than 30 minutes Quality: Safe Use of Opioids Does Pt have an Active Cancer Diagnosis on the Problem List?: No Quality: Stroke Does the patient have a stroke diagnosis?: Yes Reason for No Anti-thrombotic at DC: N/A - Med Ordered Reason for No Anticoagulant at DC: N/A - Med Ordered Reason Not Initiating IV-Tpa: Contraindicated Reason for No Anti-thrombotic by Day Two: N/A - Med Ordered Reason for No Statin at DC: N/A - Med Ordered Physical Exam Vital Signs: Vital Signs: Last Vital Signs Temp 97.7 F 08/13/22 11:15 Pulse 88 08/13/22 11:15 Resp 18 08/13/22 07:14 BP 170/94 H 08/13/22 11:15 Pulse Ox 98 08/13/22 11:15 O2 Del Method 08/13/22 11:15 FiO2 94 08/10/22 19:26 BMI result Body Mass Index 32.8 DS: Data Data Completed and Pending Labs on day of discharge: Laboratory Results - last 24 hr 08/12/22 08/12/22 08/13/22 16:08 20:02 07:11 POC Glucose 204 H 160 H 181 H 08/13/22 11:07 POC Glucose 258 H Discharge Plan Discharge Anticipated Discharge Date/Time: 08/13/22 11:29 Patient Disposition: Home Health Service Discharge Diagnosis: acute CVA Referrals: [facility] [Other] - 1 Week Yuliya Morris MD [Primary Care Provider] - 1 Week Discharge Medications: New atorvastatin 40 mg Tablet 40 mg PO DAILY Qty: 40 0RF amlodipine 5 mg Tablet 5 mg PO DAILY Qty: 30 0RF Protocol: Hold for SBP< HOLD for SBP < : 90 aspirin 81 mg capsule 81 mg PO DAILY Qty: 30 0RF clopidogrel 75 mg Tablet 75 mg PO DAILY Qty: 30 0RF lisinopril 5 mg Tablet 5 mg PO DAILY Qty: 30 0RF Protocol: Hold for SBP< HOLD for SBP < : 90 metformin 500 mg tablet 500 mg PO BID Qty: 60 0RF No Action Unobtainable Discharge Orders: Discharge Order (Routine); Ordered 08/14/22 Ordered By: Ross Guidry Diet: Diabetic diet Activity on Discharge: As tolerated Stand Alone Forms: Patient Portal Discharge page Care Plan Goals: Full recovery from stroke Health Concerns: stroke Plan of Treatment: Physical therapy at home Take Blood pressure medication of Norvasc 5 mg daily, lisinopril 5 mg carmelita Take cholesterol medication lipitor 40 mg daily Take Plavix a blood thiner to prevent another stroke 75 mg daily Take Metformin 500 mg twice daily to control blood sugars Follow up with your Doctor in a week Assessment: as above
--- NOTE | 2022-08-13 11:35 | HO.PM.IMPN ---
Subjective Subjective Date of Service: 08/13/22 Interval History: f/u acute stroke interval history: making progress, still with some weakness on right side Review of Systems speech is better weakness on right Physical Exam Vital Signs: Vital Signs: Last Vital Signs Temp 97.7 F 08/13/22 11:15 Pulse 88 08/13/22 11:15 Resp 18 08/13/22 07:14 BP 170/94 H 08/13/22 11:15 Pulse Ox 98 08/13/22 11:15 O2 Del Method 08/13/22 11:15 FiO2 94 08/10/22 19:26 BMI result Body Mass Index 32.8 Objective Data Active Medications Acetaminophen (Acetaminophen 325 Mg Tablet) 650 mg PO Q6H PRN PRN Reason: Pain, Mild (Pain Scale 1-3) Amlodipine Besylate (Amlodipine Besylate 5 Mg Tablet) 5 mg PO DAILY [facility]; Protocol Last Admin: 08/13/22 08:04 Dose: 5 mg Documented By: STEVE Aspirin (Aspirin Enteric Coated 81 Mg Tablet.Dr) 81 mg PO DAILY [facility] Last Admin: 08/13/22 08:03 Dose: 81 mg Documented By: STEVE Atorvastatin Calcium (Atorvastatin Calcium 40 Mg Tablet) 40 mg PO DAILY [facility] Last Admin: 08/13/22 08:04 Dose: 40 mg Documented By: STEVE Clopidogrel Bisulfate (Clopidogrel Bisulfate 75 Mg Tablet) 75 mg PO DAILY [facility] Last Admin: 08/13/22 08:03 Dose: 75 mg Documented By: STEVE Dextrose (Dextrose 50 % 25 Gm/50 Ml Syringe) 25 gm IVPUSH Q15M PRN; Protocol PRN Reason: per Hypoglycemia Standing Ord. Dextrose (Dextrose 50 % 25 Gm/50 Ml Syringe) 25 gm IVPUSH Q15M PRN; Protocol PRN Reason: per Hypoglycemia Standing Ord. Docusate Sodium (Docusate Sodium 100 Mg Capsule) 100 mg PO BEDTIME PRN PRN Reason: Constipation Last Admin: 08/11/22 12:05 Dose: 100 mg Documented By: CHAS Enoxaparin Sodium (Enoxaparin Sodium 40 Mg/0.4 Ml Syringe) 40 mg SUBCUT Q24H [facility] Last Admin: 08/12/22 14:36 Dose: 40 mg Documented By: MADELINE Glucose (Glucose Gel 15 Gm Gel..Gram.) 15 gm PO Q15M PRN; Protocol PRN Reason: per Hypoglycemia Standing Ord. Glucose (Glucose Gel 15 Gm Gel..Gram.) 15 gm PO Q15M PRN; Protocol PRN Reason: per Hypoglycemia Standing Ord. Insulin Human Lispro (Insulin Lispro 100 Unit/Ml 3 Ml Vial) 0 unit SUBCUT QIDACHS [facility]; Protocol Last Admin: 08/13/22 08:03 Dose: 2 unit Documented By: STEVE Lisinopril (Lisinopril 5 Mg Tablet) 5 mg PO DAILY [facility]; Protocol Melatonin (Melatonin 3 Mg Tablet) 6 mg PO BEDTIME PRN PRN Reason: Insomnia Ondansetron HCl (Ondansetron Hcl 4 Mg/2 Ml Vial) 4 mg IVPUSH Q8H PRN PRN Reason: Nausea and Vomiting Pharmacy Consult (Consult Rx Perform Med Rec) 1 each MISCELLANE ONCE PRN PRN Reason: Consult order Polyethylene Glycol (Polyethylene Glycol 3350 17 Gm Powd.Pack) 17 gm PO DAILY PRN PRN Reason: Constipation Labs CBC & Chem 7: 08/09/22 06:08 08/09/22 06:08 Labs: Laboratory Results - last 24 hr 08/12/22 08/12/22 08/13/22 16:08 20:02 07:11 POC Glucose 204 H 160 H 181 H 08/13/22 11:07 POC Glucose 258 H Assessment and Plan (1) Acute CVA (cerebrovascular accident): Status: Acute (2) Hypertension: Status: Acute Plan 47-year-old male with pertinent history of essential hypertension, non-insulin diabetes mellitus, history of left eye blindness who presents to the emergency department for evaluation of slurred speech and unsteady gait. #. Acute CVA pontine cva mri intail-pontine cva some weakness on right side MRI - The left ventricular systolic function is low normal.? The ? ? visually estimated ejection fraction is between 50-55%.? - There is no evidence of interatrial shunt by agitated saline.? - There is mild calcification of the aortic valve.? ? #.uncontrolled hypertension -BP is still high, 5 days out s -continue norvasc 5, add lisinopril 5 #.? Ubn-[id number] diabetes mellitus with hyperglycemia -continue insulin DVT prophylaxis: Lovenox 40 mg daily ?code status was discussed with family in detail? with the help of staff interpreter length patient is full code. ?ongoing inpatient need: ? Acute is CVA, uncontrolled htn- need blood pressure moniter , home services also -case management working on it since can not go to rehab Quality Stroke Does the patient have a stroke diagnosis?: Yes Reason for No Anti-thrombotic by Day Two: N/A - Med Ordered VTE Prior VTE?: No VTE Risk Level:: Medical - low VTE Device Contraindication: Treatment Not Indicated VTE Drug Contraindication: N/A - Med Ordered
--- NOTE | 2022-08-13 11:43 | MHC.CM.PN ---
CM met with Patient and his /Missy @ [phone] at bedside, who explain the they live on the third floor and feel strongly that Patient needs STR. Patient now has [employer] for insurance ([id number]) and he is agreeable to a broad SNF search. SNF search has been initiated and CM will follow.MD has been updated on the dc plan/goal.
[2022-08-13] MEDS: lisinopriL 5 MG TABLET PO (11:49)
[2022-08-13] MEDS: Enoxaparin Sodium 40 MG/0.4 ML SYRINGE SUBCUT (14:11)
[2022-08-13 16:00] VITALS: BP 179/112; PULSE 90; RESP 18; TEMP 37.1; O2SAT 98
[2022-08-13 16:29] LABS: Glucose, Whole Blood 123 mg/dL (60-115)
--- NOTE | 2022-08-13 19:19 | PC.NURSE ---
report received from overnight RN. 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 no c/o pain. at bedside. Pt up OOB with walker, steady on feet. No c/o dizziness. Call grove within reach, bed alarm on, encouraged to call for assistance, hourly rounding, q2 neuro checks, saftey precautions in place. Report given to overnight RN.
[2022-08-13 19:30] VITALS: BP 165/102; PULSE 82; RESP 18; TEMP 37; O2SAT 98
[2022-08-13 19:51] LABS: Glucose, Whole Blood 155 mg/dL (60-115)
[2022-08-14 00:18] VITALS: BP 154/94; PULSE 72; RESP 16; TEMP 36.5; O2SAT 97
[2022-08-14 03:47] VITALS: BP 146/90; PULSE 74; RESP 16; TEMP 36.2; O2SAT 98
[2022-08-14 07:14] VITALS: BP 150/78; PULSE 86; RESP 20; TEMP 36.1; O2SAT 99
[2022-08-14 07:23] LABS: Glucose, Whole Blood 150 mg/dL (60-115)
[2022-08-14] MEDS: Clopidogrel Bisulfate 75 MG TABLET PO (08:13)
[2022-08-14] MEDS: lisinopriL 5 MG TABLET PO (08:13)
[2022-08-14] MEDS: Atorvastatin Calcium 40 MG TABLET PO (08:13)
[2022-08-14] MEDS: Aspirin Enteric Coated 81 MG TABLET.DR PO (08:13)
[2022-08-14] MEDS: amLODIPine Besylate 5 MG TABLET PO (08:13)
[2022-08-14] MEDS: Acetaminophen 325 MG TABLET 650 MG PO (08:13)
[2022-08-14 09:36] VITALS: BP 150/78; PULSE 86; O2SAT 99
--- NOTE | 2022-08-14 10:10 | W.MHC.F2F ---
Service Date Service Date: 08/14/22 Encounter Date of encounter: 08/14/22 Reasons for Services Signs and symptoms assessed: weakness following stroke Reason for prison: CV/CP assess and/or care and teach disease management Homebound: Leaving the home is medically contraindicated at this time without the asist of a device and/or another person due th the listed conditions above and below. Reason homebound: unsteady gait / fall risk and other (weakness related to stroke) Certification: Based on the above findings, I certify that this patient is confined to the home and needs intermittent prison care, physical therapy and/or speech therapy, or continues to need occupational therapy. The patient is under my care, and I have initiated the establishment of the plan of care. The patient will be followed by a physician who will periodically review the plan of care.
--- NOTE | 2022-08-14 10:21 | MHC.CM.PN ---
pt dcd home with ns
[2022-08-14 11:15] LABS: Glucose, Whole Blood 184 mg/dL (60-115)
[2022-08-14 11:20] VITALS: BP 165/74; PULSE 74; RESP 18; TEMP 36.4; O2SAT 96
[2022-08-14] MEDS: Insulin Lispro 100 UNIT/ML 3 ML VIAL SUBCUT (11:44)
--- NOTE | 2022-08-14 13:45 | MHC.CM.PN ---
denise has just acceptred pt and will him within 48 hrs
== END 2022-08-14 13:02 | disposition home health service (06) | DRG 45 ==
LOC: HO.ED 10:28 → HO.EDOVER 13:23 → HO.IMC 17:13
PROVIDERS: Internal Medicine; Physician Assistant Medical; Admitting Provider Student in an Organized Health Care Education/Training Program; Emergency Provider Emergency Medicine; PCP Family Medicine; Visit Provider Internal Medicine
DX: I63.89 Other cerebral infarction (principal); G93.49 Other encephalopathy; I67.2 Cerebral atherosclerosis; E11.65 Type 2 diabetes mellitus with hyperglycemia; H02.402 Unspecified ptosis of left eyelid; H54.62 Unqualified visual loss, left eye, normal vision right eye; I10 Essential (primary) hypertension; R47.81 Slurred speech; R26.81 Unsteadiness on feet; Z91.120 Patient's intentional underdosing of medication regimen due to financial hardship; Z20.822 Contact with and (suspected) exposure to COVID-19; Z79.84 Long term (current) use of oral hypoglycemic drugs; Z79.899 Other long term (current) drug therapy
CPT/HCPCS: 36415; 70450; 70496; 70498; 70551; 80048; 80061; 82947; 83036; 85025; 85610; 85730; 87635; 93005; 93306; 97110; 97162; 97166; 97530; 99284; J1650; Q9967

== ENCOUNTER 2022-11-15 15:33 | Outpatient (REF) | payer MEDICAID, SELFPAY ==
--- NOTE | ~2022-11-15 | XR_ITS ---
EXAMINATION: XR SHOULDER, RIGHT CLINICAL INFORMATION: Pain. COMPARISON: None TECHNIQUE: AP external rotation, Grashey, scapular Y, and axillary views of the right shoulder. FINDINGS: Bony alignment and mineralization are normal. The glenohumeral joint is intact and shows mild osteoarthritic change. The acromioclavicular and coracoclavicular intervals are normal. There is mild osteoarthritic change of the acromioclavicular joint. No fracture or dislocation is seen. There is a small distal acromial undersurface osteophyte. There is mild calcific tendinitis of the right rotator cuff insertion. No foreign body is seen. There is no right pneumothorax. XR/XR shoulder RT min 2V IMPRESSION: 1. There is mild osteoarthritic change of the right glenohumeral and acromioclavicular joints. 2. There is mild calcific tendinitis of the right rotator cuff insertion. 3. No fracture or dislocation is seen.
== END 2022-11-15 15:34 | disposition home or self-care (01) ==
LOC: HO.XRAY 15:33
PROVIDERS: PCP Registered Nurse; Visit Provider Registered Nurse
DX: M25.511 Pain in right shoulder (principal)
CPT/HCPCS: 73030

== ENCOUNTER 2022-12-07 08:33 | Observation (INO) | payer MEDICAID, SELFPAY ==
[2022-12-07] VITALS (7 sets, daily range): BP systolic 141–160; BP diastolic 78–90; PULSE 78–88; RESP 15–16; TEMP 36.6–36.8; O2SAT 97–98; BMI 26.4
--- NOTE | ~2022-12-07 | XR_ITS ---
EXAMINATION: XR CHEST CLINICAL INFORMATION: Near syncopal episode COMPARISON: Chest x-ray September 18, 2018 TECHNIQUE: 2 views of the chest were obtained. FINDINGS: Cardiac silhouette is normal in size. The lungs are well aerated. There is no lobar consolidation. No pleural effusion or pneumothorax. Moderate degenerative changes of the spine. XR/XR chest 2V IMPRESSION: No acute pulmonary pathology.
--- NOTE | ~2022-12-07 | CT_ITS ---
EXAMINATION: CT BRAIN AND CT CERVICAL SPINE WITHOUT CONTRAST. CLINICAL INFORMATION: Syncopal episode. COMPARISON: None TECHNIQUE: 5 mm thin axial and reformatted 2 mm thin sagittal and coronal images of brain were obtained. Subsequently axial 3 mm thin and reformatted 2 mm thin sagittal and coronal images of cervical spine were obtained. DLP 1197. This CT examination was performed using dose optimization technique as appropriate, variously including the following: Automated exposure control Adjustment of MA and/or KV according to patient size(this includes techniques or standardized protocols for targeted exams where dose is matched to indication/reason for exam; extremities or head. Use of iterative reconstruction techniques. FINDINGS: There is no acute intra-axial, extra-axial bleed, masses or midline shift. There is no acute infarction evolution. There is no edema is lacunar infarction right inferior cerebellar hemisphere. There is no acute infarction evolution. There is no edema. The lateral ventricles are symmetrical in size and configuration but enlarged. Bone windows reveal no calvarial abnormality. There is diffuse mucoperiosteal thickening right maxillary sinus. Rest of the paranasal sinuses and mastoid air cells are well-aerated. No scalp soft tissue abnormality seen. Cervical spine: There is mild straightening of cervical lordosis. The vertebral heights and alignment is normal. There is mild ventral and dorsal spondylosis cervical spine. The craniovertebral junction and the C1-C2 alignment is normal. There is left C3-C4, C4-C5 and C5-C6 moderate facet joint arthropathy. The prevertebral and paravertebral soft tissues are normal. CT/CT cervical spine wo IV con IMPRESSION: No acute intracranial process seen. Chronic right maxillary sinus inflammatory changes. Mild straightening of cervical lordosis. There is degenerative disc changes with cervical spondylosis C5-C6 and C6-C7 disc levels. Moderate left C3-C4, C4-C5 and C5-C6 facet joint arthropathy.
--- NOTE | ~2022-12-07 | CT_ITS ---
EXAMINATION: CT ANGIOGRAM HEAD CT ANGIOGRAM NECK CLINICAL INFORMATION: Reason for Exam PT C SYNCOPAL EPISODE COMPARISON: Earlier same day noncontrast head CT, CTA head and neck 08/08/2022 TECHNIQUE: Initial noncontrast forklift wheel loader imaging of the head and neck was performed. Comparison is made with noncontrast head CT from earlier today. Test bolus sequences followed by intravenous administration 70 mL of Omnipaque 350. Helical imaging was performed in the axial plane from the aortic arch to the skull vertex. Delayed postcontrast imaging of the head was also performed. The data was processed at the tissue technologist's workstation for generation of MIP sequences. Angled MIPs and volume rendered reformatted images were also generated at an offline 3D workstation. Stenoses are assessed in accordance with NASCET criteria unless otherwise indicated. DLP: 1608 mGy-cm This CT examination was performed using dose optimization techniques as appropriate, variously including the following: *Automated exposure control. *Adjustment of mA and/or kV according to patient size (this includes techniques or standardized protocols for targeted exams where dose is matched to indication/reason for exam; i.e. extremities or head). *Use of iterative reconstruction technique. FINDINGS: CT Head: There is no evidence of acute intracranial hemorrhage or edematous territorial infarction. Scattered hypoattenuation in the periventricular and deep white matter are consistent with moderate microangiopathy. Chronic lacunar infarcts involving the left lentiform nucleus, left jake, and right cerebellum. Coburn-white matter differentiation is preserved. Proportional prominence of the ventricles and sulcal spaces. No evidence for obstructive hydrocephalus. No abnormal mass effect or midline shift. No extra-axial fluid collections. No pathologic intra-axial enhancement or regional oligemia. No acute soft tissue or osseous abnormalities. Right maxillary sinus mucosal thickening. Left phthisis bulbi CT Neck: The thyroid gland and remaining cervical soft tissues are within normal limits. Moderate to advanced multilevel cervical spondylosis. Multiple dental caries. CT Upper Chest: The visualized lung apices and upper mediastinum are within normal limits. Neck CTA: Aortic Arch: Normal contour and caliber. Classic 3 vessel branching pattern of the aortic arch. Great Vessel Origins: No significant stenosis of the branch origins. Right Common Carotid Artery: No focal stenosis or occlusion. Cervical Right Internal Carotid Artery: Mild calcific atherosclerotic disease of the carotid bulb and proximal internal carotid artery without flow-limiting stenosis. Left Common Carotid Artery: No focal stenosis or occlusion. Cervical Left Internal Carotid Artery: Mild calcific atherosclerotic disease of the carotid bulb and proximal internal carotid artery without flow-limiting stenosis. Cervical Right Vertebral Artery: Dominant. No focal stenosis or occlusion. Cervical Left Vertebral Artery: No focal stenosis or occlusion. Brain CTA: Intracranial Internal Carotid Arteries: Calcific atherosclerotic disease of the intracranial internal carotid arteries without occlusion or flow-limiting stenosis. Stable moderate stenosis of the paraophthalmic and supraclinoid left ICA. Right Anterior Cerebral Artery: Normal A1 segment. Normal opacification of the distal LUNA segments. Left Anterior Cerebral Artery: Congenitally absent or diminutive A1 segment. Normal opacification of the distal LUNA segments. Anterior Communicating Artery: Normal. Right Middle Cerebral Artery: Normal M1 segment of the MCA without focal stenosis or occlusion. Normal arborization of the distal segments. Left Middle Cerebral Artery: Normal M1 segment of the MCA without focal stenosis or occlusion. Stable focal moderate to high-grade stenosis of the origin of a left M2 branch. Right Vertebral Artery: Normal V4 segment. Left Vertebral Artery: Normal V4 segment. Basilar Artery: Normal without focal stenosis or occlusion. Normal appearance of the proximal superior cerebellar arteries. Right Posterior Cerebral Artery: Normal P1 segment. Normal opacification of the distal WINDOWS 7 [employer]PL[employer] LEAD segments. Left Posterior Cerebral Artery: Normal P1 segment. Stable moderate stenosis at the left P2 P3 junction. Normal opacification of the superior sagittal, straight, transverse, and sigmoid sinuses. CT/CT angio head neck IMPRESSION: 1. No significant arterial narrowing or occlusion in the neck. 2. No new or progressive arterial stenosis or large vessel occlusion of the intracranial arterial vasculature. Stable multifocal intracranial atherosclerotic narrowing including moderate supraclinoid left ICA, moderate to severe left M2 origin, and moderate left P2 P3 junction narrowing.
--- NOTE | 2022-12-07 08:53 | ECG_ITS ---
Test Reason : SYNCOPE Blood Pressure : / mmHG Vent. Rate : 081 BPM Atrial Rate : 081 BPM P-R Int : 150 ms QRS Dur : 106 ms QT Int : 370 ms P-R-T Axes : 041 010 036 degrees QTc Int : 429 ms Normal sinus rhythm Normal ECG When compared with ECG of 08-AUG-2022 09:24, T wave amplitude has decreased in Anterior leads Referred By: Generic ED Physician Electronically Signed By:BUNNY TODD MD
[2022-12-07 09:10] LABS: INTERNATIONAL NORM RATIO 1.1 (0.9-1.1); Prothrombin Time 12.2 SEC (10.0-13.1)
[2022-12-07 09:23] LABS: B Type Natriuretic Peptide < 10 pg/mL (<100)
[2022-12-07 09:24] LABS: Troponin-I High Sensitivity < 3.5 ng/L (<3.5-35.0)
[2022-12-07 09:28] LABS: Anion Gap 13 (12-20); Blood Urea Nitrogen 18 mg/dL (9-16); Calcium 8.6 mg/dL (8.4-10.2); Carbon Dioxide 24 mmol/L (22-29); Chloride 108 mmol/L (96-108); Creatinine Clr Calc Pharmacy 137.9; Estimated Glomerular Filt Rate > 60; Glucose Random 189 mg/dL (60-115); Magnesium 1.7 mg/dL (1.6-2.6); Potassium 4.4 mmol/L (3.3-5.1); Sodium 141 mmol/L (135-145)
[2022-12-07] MEDS: iohexoL 350 MG/ML 100 ML INFUS..BTL 70 ML IV (10:04)
[2022-12-07 10:17] LABS: Alanine Aminotransferase 19 U/L (0-40); Albumin Level 4.1 g/dL (3.5-5.0); Alkaline Phosphatase 40 U/L (39-117); Aspartate Amino Transferase 20 U/L (5-37); Bilirubin Direct 0.2 mg/dL (0.0-0.5); Bilirubin Total 0.7 mg/dL (0.0-1.0); Total Protein 6.1 g/dL (6.5-8.0)
[2022-12-07 10:19] LABS: Influenza A PCR NEGATIVE (Negative); Influenza B PCR NEGATIVE (Negative); Resp Syncy Virus RNA Qual PCR NEGATIVE (Negative); SARS COV2 PCR INHOUSE NEGATIVE (Negative)
[2022-12-07 10:58] LABS: Hematocrit 41.2 % (42.0-52.0); Hemoglobin 13.7 g/dl (14.0-18.0); Mean Corpuscular HGB Conc 33.3 g/dl (31.0-36.0); Mean Corpuscular Volume 90.4 fL (80.0-98.0); Mean Platelet Volume 11.3 fL (9.4-12.4); Platelet Count 129 X10*3/uL (160-400); Red Blood Count 4.56 X10*6/uL (4.60-5.80); Red Cell Distribution Width 12.8 % (11.0-16.0); White Blood Count 8.6 X10*3/uL (4.8-10.8)
--- NOTE | 2022-12-07 11:27 | ED.SYNCOPE ---
HPI - Syncope General Chief Complaint: Syncope Stated Complaint: Near sinkable episode per EMS Time Seen by Provider: 12/07/22 09:02 Source: patient and family ( at bedside) Mode of arrival: ambulatory Limitations: no limitations History of Present Illness HPI narrative: 47yoM with a PMHx of HTN, non-insulin diabetes, left eye blindness, chronic dysarthritic speech who is presenting to the ER with at bedside after he had a syncopal episode this morning prior to arrival in his kitchen. He reports that he felt completely fine this morning and he was making coffee in his kitchen when suddenly he had a left upper back pain and he syncopized after that. He reports he believes he got up right away and fell some lightheadedness/dizziness became diaphoretic and nauseous. at bedside reports that she ran toward the kitchen but he was already walking towards her and he appeared off-balance. Otherwise at this time he reports he still has mild left upper back pain denies any other symptoms related to this. He denies any dizziness, lightheadedness, change in vision, neck pain/stiffness, jaw pain, nausea/vomiting at this time, chest pain or shortness of breath, dyspnea on exertion, orthopnea, palpitations, paresthesias, diarrhea, abdominal pain, flank pain, dysuria, hematuria, abnormal penile discharge, focal weakness, urinary bowel incontinence or retention, recent travel or sick contacts or any other symptoms complaints or concerns at this time. MD complaint: other (Syncope) Onset (ago): hour(s) (Prior to arrive) -: second(s) Description of event: post-event confusion Prodromal symptoms: other (Left upper back pain) Witnessed: No Context: other (Making coffee in his kitchen) Injuries sustained associated with event: none Current symptoms: back to baseline History: other (History of CVA) Treatments prior to arrival: none Related Data Previous Rx's Medication Instructions Recorded amlodipine 5 mg tablet 5 mg PO DAILY #30 tabs 08/14/22 aspirin 81 mg capsule 81 mg PO DAILY #30 caps 08/14/22 atorvastatin 40 mg tablet 40 mg PO DAILY #40 tabs 08/14/22 clopidogrel 75 mg tablet 75 mg PO DAILY #30 tabs 08/14/22 lisinopril 5 mg tablet 5 mg PO DAILY #30 tabs 08/14/22 metformin 500 mg tablet 500 mg PO BID #60 tabs 08/14/22 miscellaneous medical supply #1 ea 08/14/22 walker #1 ea 08/14/22 walker #1 ea 08/14/22 Allergies Allergy/AdvReac Type Severity Reaction Status Date / Time No Known Allergies Allergy Mild NONE Unverified 06/22/20 16:05 Review of Systems Review of Systems: Constitutional : No Weight loss, No Fever, No Chills, No Night Sweats, No Fatigue, No Malaise ENT/Mouth : No Hearing loss, No Ear Pain, No Nasal Congestion, No Sinus Pain, No Hoarseness, No sore throat, No Rhinorrhea, No Swallowing Difficulty Eyes: No Eye Pain, No Swelling, No Redness, No Foreign Body, No Discharge, No Vision Changes Cardiovascular : No Chest Pain, No SOB, No Dyspnea on Exertion, No Orthopnea, No Edema, No Palpitations Respiratory : No Cough, No Sputum, No Wheezing, No Smoke Exposure, No Dyspnea Gastrointestinal : No Nausea, No Vomiting, No Diarrhea, No Constipation, No abdominal Pain, No Hematochezia, No Melena Genitourinary : no irregular bleeding, No Dysuria, No Urinary Frequency, No Hematuria, No Urinary Incontinence, No Urgency, No Flank Pain, No Urinary Flow Changes, No Hesitancy Musculoskeletal : + left upper back pain, No joint pain, No Myalgias, No Joint Swelling Skin : No Skin Lesions, No rash Neuro : + Weakness dizziness that has resolved, No Numbness, No Paresthesias, No Loss of Consciousness, No Headache Psych : No Anxiety/Panic, No Depression, No SI/HI/AH/VH, No Social Issues, Heme/Lymph: No Bruising, No Bleeding,No Lymphadenopathy Endocrine : No Polyuria, No Polydipsia, No Temperature Intolerance Yes all other systems are reviewed and are negative FOR[facility]LY [facility] Past Medical History Attestation statement: The following information was validated with the patient. Source: old records reviewed, obtained from family and nursing notes reviewed Medical History Diabetes Hypertension Surgical History S/P appendectomy Social History Social History Household Members: Spouse Housing: Apartment Do you presently have visiting nurse or other home services: No Patient Tobacco Use Status: Never used Tobacco e-Cigarette/Vaping Use: Never Used Advance Directives: Yes Advance Directives on File: Yes Advance Directives Date on File: 08/15/22 service: No Current occupational status: employed Physical Exam Vital Signs: Vital Signs: Last Vital Signs Temp 97.9 F 12/07/22 08:51 Pulse 88 12/07/22 11:07 Resp 16 12/07/22 08:51 BP 143/89 H 12/07/22 11:07 Pulse Ox 98 12/07/22 11:21 O2 Del Method 12/07/22 11:21 BMI result Body Mass Index 26.4 Vital signs have been reviewed as normal and appeared to be correct. Blood pressure 144/87 Heart rate normal. Respiration rate normal. Temperature normal. Oxygen saturation normal. Appearance: Alert. Oriented X3. No acute distress. Head: Normal external exam. Normocephalic. Atraumatic. Able to rotate head bilaterally. Eyes: PERRLA. EOMI. No nystagmus noted. Conjunctiva and sclera normal. Eyelids normal. Corneal reflex normal. ENT: EAC normal. TM's Normal. Hearing normal. Pharynx normal. Uvula midline. tongue midline. Moist mucous membranes. No trismus noted. No drooling noted. No muffled voice noted. No nystagmus noted. Neck: Normal inspection. Neck supple. FROM. No adenopathy. Trachea midline. Thyroid Normal. No meningeal signs. No neck mass noted. CVS: Normal heart rate and rhythm. Heart sound normal. No murmurs noted. Pulses normal throughout. Respiratory: No respiratory distress. Painless inspiration. Breath sounds normal. No wheezes/rales/rhonchi noted. Chest nontender. No accessory muscle usage noted or decreased air movement noted. Abdomen: Soft and nontender. Bowel sounds normal in all 4 quadrants. No distention noted. No organomegaly noted. No visible injury noted. Back: No CVA tenderness. Full range of motion noted. Skin: Skin warm and dry. Normal skin color. Normal skin turgor. No rashes/lesions/lacerations noted. Extremities: No lower extremity edema. Extremities exhibit normal range of motion. Extremities nontender. Able to shrug shoulders bilaterally and keep up against resistance. Neuro: Oriented X 3. No motor deficit. No sensory deficit. Reflexes normal. Moving all extremities. No focal motor deficits. Patient has baseline right-sided facial weakness with deviation of the tongue to the right otherwise the rest of the cranial nerves to the face are intact at baseline. Normal cognition. Dysarthic speech at baseline per patient. Gait normal. Strength 5/5 throughout. No pronator drift. No tremor noted. No fasciculations noted. No rigidity noted. Muscle tone normal throughout. No asterixis noted. [id number] test normal. Heel to smith test normal. Tandem gait normal. Does not sway with eyes open. Romberg test negative. Rapid alternating movement upper extremity normal. Rapid alternating movement lower extremity normal. Hand drop from overhead Misses face. NIHSS score 0. Course Course Course Narrative: 9am - 47yoM with a PMHx of HTN, non-insulin diabetes, left eye blindness, chronic dysarthritic speech who is currently on Plavix and a baby aspirin who is presenting to the ER with at bedside after he had a syncopal episode this morning prior to arrival in his kitchen. He reports that he felt completely fine this morning and he was making coffee in his kitchen when suddenly he had a left upper back pain and he syncopized after that. He reports he believes he got up right away and fell some lightheadedness/dizziness became diaphoretic and nauseous. at bedside reports that she ran toward the kitchen but he was already walking towards her and he appeared off-balance. Otherwise at this time he reports he still has mild left upper back pain denies any other symptoms related to this. This patient presents with symptoms consistent with syncope. Differential diagnosis includes reflex syncope (i.e. vasovagal syncope). Low suspicion for orthostatic syncope given lack of dehydration, no evidence of acute life threatening hemorrhage. Presentation not consistent with seizures given short time course, no postictal state, no seizure activity. Low suspicion for acute neurologic catastrophes to include ICH given lack of trauma, risk factors for bleeding diatheses. Low suspicion for vascular catastrophes to include PE, thoracic aortic dissection, AAA rupture. Presentation not consistent with acute life threatening arrhythmia, structural heart disease, electrical conduction abnormalities, or ACS. Not consistent with CVA as patient has the normal neuro exam is at baseline per patient and at bedside. No new deficits. NIH SS score would be 0 at this time. Patient has non disabling symptoms therefore would not be a candidate for tPA. Plan: However, given age, cardiovascular risk factors, history & physical, will workup and admit to telemetry. Reevaluation(s) Reevaluation #1: Labs reviewed - mild anemia with an H&H of 13.7/41.2 - platelet count 129,000 - BUN 18 - random glucose 189. - total CPK 236 - total protein 6.1 - UA revealed 500 glucose although no evidence of UTI - patient negative for COVID/RSV/flu All other labs are within normal limits CT scan of brain revealed chronic changes no new processes noted. CT scan of cervical spine revealed degenerative disc changes otherwise no other acute processes noted. CTA of head and neck revealed chronic changes no new processes noted. EKG is normal sinus rhythm with ventricular rate of 81 with a normal [place] interval normal QRS duration normal QT/QTC interval. No acute ischemic change are noted. Similar compared to prior EKG Therefore at this time patient will need to be admitted for further evaluation treatment for syncopal episode of unknown cause. Patient at bedside understand agree this plan. Discussing this case with Dr. Sharma the hospitalist. Time: 11:37 Medications Administered Discontinued Medications Generic Name Dose Route Start Last Admin Trade Name Freq PRN Reason Stop Dose Admin Iohexol 70 ml 12/07/22 10:03 12/07/22 10:04 Iohexol 350 Mg/Ml 100 Ml Infus..Btl IV 12/07/22 10:04 70 ml ONCE ONE Administration Medical Decision Making Admission/Observation Consideration of admission/observation: Escalation of care including admission/observation considered (Patient will need to be admitted or observed due to syncopal episode of unknown cause) Consult Healthcare Provider Management of the patient was discussed with: Hospitalist (Dr. Sharma discussing admission) Lab Data MDM Lab Attestation statement: I reviewed the patient's lab results. 12/07/22 10:49 12/07/22 08:58 Labs: Lab Results 12/07/22 12/07/22 12/07/22 Range/Units 08:58 08:58 08:58 WBC (4.8-10.8) X10*3/uL RBC (4.60-5.80) X10*6/uL Hgb (14.0-18.0) g/dl Hct (42.0-52.0) % MCV (80.0-98.0) fL MCH (27.0-33.0) pg MCHC (31.0-36.0) g/dl RDW (11.0-16.0) % Plt Count (160-400) X10*3/uL MPV (9.4-12.4) fL Absolute Nucleated RBC (0.0-0.012) X10*3/uL Nucleated RBC % (auto) (0.0-0.2) /100WBC PT 12.2 (10.0-13.1) SEC INR 1.1 (0.9-1.1) Sodium 141 (135-145) mmol/L Potassium 4.4 (3.3-5.1) mmol/L Chloride 108 (96-108) mmol/L Carbon Dioxide 24 (22-29) mmol/L Anion Gap 13 (12-20) BUN 18 H (9-16) mg/dL Creatinine 0.69 (0.5-1.4) mg/dL Estim Creat Clear Calc 137.9 Estimated GFR > 60 Random Glucose 189 H (60-115) mg/dL Calcium 8.6 D (8.4-10.2) mg/dL Magnesium 1.7 (1.6-2.6) mg/dL Total Bilirubin 0.7 (0.0-1.0) mg/dL Direct Bilirubin 0.2 (0.0-0.5) mg/dL AST 20 (5-37) U/L ALT 19 (0-40) U/L Alkaline Phosphatase 40 (39-117) U/L Total Creatine Kinase 236 H (38-174) U/L Troponin I High Sens < 3.5 (<3.5-35.0) ng/L B-Natriuretic Peptide (<100) pg/mL Total Protein 6.1 L (6.5-8.0) g/dL Albumin 4.1 (3.5-5.0) g/dL Urine Color Urine Appearance Urine pH (5.0-9.0) Ur Specific [place] (1.005-1.025) Urine Protein (Neg-Trace) mg/dL Urine Glucose (UA) (Negative) mg/dL Urine Ketones (Negative) mg/dL Urine Blood (Negative) Urine Nitrite (Negative) Ur Leukocyte Esterase (Negative) Urine Opiates Screen (Not Detect) Urine Fentanyl Screen (Not Detect) Ur Barbiturates Screen (Not Detect) Ur Phencyclidine Scrn (Not Detect) Ur Amphetamines Screen (Not Detect) U Benzodiazepines Scrn (Not Detect) Urine Cocaine Screen (Not Detect) U Marijuana (THC) Screen (Not Detect) Influenza Type A (PCR) (Negative) Influenza Type B (PCR) (Negative) RSV RNA Qual (PCR) (Negative) SARS-CoV-2 RNA (RT-PCR) (Negative) 12/07/22 12/07/22 12/07/22 Range/Units 08:58 09:36 10:49 WBC 8.6 (4.8-10.8) X10*3/uL RBC 4.56 L (4.60-5.80) X10*6/uL Hgb 13.7 L (14.0-18.0) g/dl Hct 41.2 L (42.0-52.0) % MCV 90.4 (80.0-98.0) fL MCH 30.0 (27.0-33.0) pg MCHC 33.3 (31.0-36.0) g/dl RDW 12.8 (11.0-16.0) % Plt Count 129 L (160-400) X10*3/uL MPV 11.3 (9.4-12.4) fL Absolute Nucleated RBC 0.000 (0.0-0.012) X10*3/uL Nucleated RBC % (auto) 0.0 (0.0-0.2) /100WBC PT (10.0-13.1) SEC INR (0.9-1.1) Sodium (135-145) mmol/L Potassium (3.3-5.1) mmol/L Chloride (96-108) mmol/L Carbon Dioxide (22-29) mmol/L Anion Gap (12-20) BUN (9-16) mg/dL Creatinine (0.5-1.4) mg/dL Estim Creat Clear Calc Estimated GFR Random Glucose (60-115) mg/dL Calcium (8.4-10.2) mg/dL Magnesium (1.6-2.6) mg/dL Total Bilirubin (0.0-1.0) mg/dL Direct Bilirubin (0.0-0.5) mg/dL AST (5-37) U/L ALT (0-40) U/L Alkaline Phosphatase (39-117) U/L Total Creatine Kinase (38-174) U/L Troponin I High Sens (<3.5-35.0) ng/L B-Natriuretic Peptide < 10 (<100) pg/mL Total Protein (6.5-8.0) g/dL Albumin (3.5-5.0) g/dL Urine Color Urine Appearance Urine pH (5.0-9.0) Ur Specific [place] (1.005-1.025) Urine Protein (Neg-Trace) mg/dL Urine Glucose (UA) (Negative) mg/dL Urine Ketones (Negative) mg/dL Urine Blood (Negative) Urine Nitrite (Negative) Ur Leukocyte Esterase (Negative) Urine Opiates Screen (Not Detect) Urine Fentanyl Screen (Not Detect) Ur Barbiturates Screen (Not Detect) Ur Phencyclidine Scrn (Not Detect) Ur Amphetamines Screen (Not Detect) U Benzodiazepines Scrn (Not Detect) Urine Cocaine Screen (Not Detect) U Marijuana (THC) Screen (Not Detect) Influenza Type A (PCR) NEGATIVE (Negative) Influenza Type B (PCR) NEGATIVE (Negative) RSV RNA Qual (PCR) NEGATIVE (Negative) SARS-CoV-2 RNA (RT-PCR) NEGATIVE (Negative) 12/07/22 12/07/22 Range/Units 11:23 11:23 WBC (4.8-10.8) X10*3/uL RBC (4.60-5.80) X10*6/uL Hgb (14.0-18.0) g/dl Hct (42.0-52.0) % MCV (80.0-98.0) fL MCH (27.0-33.0) pg MCHC (31.0-36.0) g/dl RDW (11.0-16.0) % Plt Count (160-400) X10*3/uL MPV (9.4-12.4) fL Absolute Nucleated RBC (0.0-0.012) X10*3/uL Nucleated RBC % (auto) (0.0-0.2) /100WBC PT (10.0-13.1) SEC INR (0.9-1.1) Sodium (135-145) mmol/L Potassium (3.3-5.1) mmol/L Chloride (96-108) mmol/L Carbon Dioxide (22-29) mmol/L Anion Gap (12-20) BUN (9-16) mg/dL Creatinine (0.5-1.4) mg/dL Estim Creat Clear Calc Estimated GFR Random Glucose (60-115) mg/dL Calcium (8.4-10.2) mg/dL Magnesium (1.6-2.6) mg/dL Total Bilirubin (0.0-1.0) mg/dL Direct Bilirubin (0.0-0.5) mg/dL AST (5-37) U/L ALT (0-40) U/L Alkaline Phosphatase (39-117) U/L Total Creatine Kinase (38-174) U/L Troponin I High Sens (<3.5-35.0) ng/L B-Natriuretic Peptide (<100) pg/mL Total Protein (6.5-8.0) g/dL Albumin (3.5-5.0) g/dL Urine Color Yellow Urine Appearance Clear Urine pH 7.0 (5.0-9.0) Ur Specific [place] >= 1.030 H (1.005-1.025) Urine Protein Trace (Neg-Trace) mg/dL Urine Glucose (UA) 500 H (Negative) mg/dL Urine Ketones Negative (Negative) mg/dL Urine Blood Negative (Negative) Urine Nitrite Negative (Negative) Ur Leukocyte Esterase Negative (Negative) Urine Opiates Screen Not Detected (Not Detect) Urine Fentanyl Screen Not Detected (Not Detect) Ur Barbiturates Screen Not Detected (Not Detect) Ur Phencyclidine Scrn Not Detected (Not Detect) Ur Amphetamines Screen Not Detected (Not Detect) U Benzodiazepines Scrn Not Detected (Not Detect) Urine Cocaine Screen Not Detected (Not Detect) U Marijuana (THC) Screen Not Detected (Not Detect) Influenza Type A (PCR) (Negative) Influenza Type B (PCR) (Negative) RSV RNA Qual (PCR) (Negative) SARS-CoV-2 RNA (RT-PCR) (Negative) Independent Interpretation I performed an independent interpretation of an: EKG (EKG is normal sinus rhythm with ventricular rate of 81 with a normal [place] interval normal QRS duration normal QT/QTC interval. No acute ischemic change are noted. Similar compared to prior EKG), Plain X-Ray (Chest x-ray within normal limits discussed with patient and at bedside agree with radiologist's report) and CT Scan (CT scans of brain/cervical spine and CTA of head and neck revealed chronic changes no acute processes noted I am agreeable with radiologist report and discussed this with patient and at bedside they understood) Radiology Impression Discussion of test interpretation with radiology: I have reviewed the radiologist's reading. Radiologist Impression: EXAMINATION: XR CHEST CLINICAL INFORMATION: Near syncopal episode COMPARISON: Chest x-ray September 18, 2018 TECHNIQUE: 2 views of the chest were obtained. FINDINGS: Cardiac silhouette is normal in size. The lungs are well aerated. There is no lobar consolidation. No pleural effusion or pneumothorax. Moderate degenerative changes of the spine. XR/XR chest 2V IMPRESSION: No acute pulmonary pathology. Ordering Physician: Dina Martinez Date of Service: 12/07/22 Procedure(s): CT head/brain wo IV con Accession Number(s): [id number] cc: Dina Martinez~ EXAMINATION: CT BRAIN AND CT CERVICAL SPINE WITHOUT CONTRAST. CLINICAL INFORMATION: Syncopal episode.? COMPARISON: None? TECHNIQUE: 5 mm thin axial and reformatted 2 mm thin sagittal and coronal images of brain were obtained. Subsequently axial 3 mm thin and reformatted 2 mm thin sagittal and coronal images of cervical spine were obtained. DLP [id number]. This CT examination was performed using dose optimization technique as appropriate, variously including the following: Automated exposure control Adjustment of MA and/or KV according to patient size(this includes techniques or standardized protocols for targeted exams where dose is matched to indication/reason for exam;? extremities or head. Use of iterative reconstruction techniques.? FINDINGS: There is no acute intra-axial, extra-axial bleed, masses or midline shift. There is no acute infarction evolution. There is no edema is lacunar infarction right inferior cerebellar hemisphere. There is no acute infarction evolution. There is no edema. The lateral ventricles are symmetrical in size and configuration but enlarged. Bone windows reveal no calvarial abnormality. There is diffuse mucoperiosteal thickening right maxillary sinus. Rest of the paranasal sinuses and mastoid air cells are well-aerated. No scalp soft tissue abnormality seen. Cervical spine: There is mild straightening of cervical lordosis. The vertebral heights and alignment is normal. There is mild ventral and dorsal spondylosis cervical spine. The craniovertebral junction and the C1-C2 alignment is normal. There is left C3-C4, C4-C5 and C5-C6 moderate facet joint arthropathy. The prevertebral and paravertebral soft tissues are normal. CT/CT head/brain wo IV con IMPRESSION: No acute intracranial process seen. Chronic right maxillary sinus inflammatory changes. ? Mild straightening of cervical lordosis. There is degenerative disc changes with cervical spondylosis C5-C6 and C6-C7 disc levels. Moderate left C3-C4, C4-C5 and C5-C6 facet joint arthropathy. ? ?FINDINGS: CT Head: There is no evidence of acute intracranial hemorrhage or edematous territorial infarction. Scattered hypoattenuation in the periventricular and deep white matter are consistent with moderate microangiopathy. Chronic lacunar infarcts involving the left lentiform nucleus, left jake, and right cerebellum. [place]-white matter differentiation is preserved. Proportional prominence of the ventricles and sulcal spaces. No evidence for obstructive hydrocephalus. No abnormal mass effect or midline shift. No extra-axial fluid collections. No pathologic intra-axial enhancement or regional oligemia. No acute soft tissue or osseous abnormalities. Right maxillary sinus mucosal thickening. Left phthisis bulbi CT Neck: The thyroid gland and remaining cervical soft tissues are within normal limits. Moderate to advanced multilevel cervical spondylosis. Multiple dental caries. CT Upper Chest: The visualized lung apices and upper mediastinum are within normal limits. Neck CTA: Aortic Arch: Normal contour and caliber. Classic 3 vessel branching pattern of the aortic arch. Great Vessel Origins: No significant stenosis of the branch origins. Right Common Carotid Artery: No focal stenosis or occlusion. Cervical Right Internal Carotid Artery: Mild calcific atherosclerotic disease of the carotid bulb and proximal internal carotid artery without flow-limiting stenosis. Left Common Carotid Artery: No focal stenosis or occlusion. Cervical Left Internal Carotid Artery: Mild calcific atherosclerotic disease of the carotid bulb and proximal internal carotid artery without flow-limiting stenosis. Cervical Right Vertebral Artery: Dominant. No focal stenosis or occlusion. Cervical Left Vertebral Artery: No focal stenosis or occlusion. Brain CTA: Intracranial Internal Carotid Arteries: Calcific atherosclerotic disease of the intracranial internal carotid arteries without occlusion or flow-limiting stenosis. Stable moderate stenosis of the paraophthalmic and supraclinoid left ICA. Right Anterior Cerebral Artery: Normal A1 segment. Normal opacification of the distal LUNA segments. Left Anterior Cerebral Artery: Congenitally absent or diminutive A1 segment. Normal opacification of the distal LUNA segments. Anterior Communicating Artery: Normal. Right Middle Cerebral Artery: Normal M1 segment of the MCA without focal stenosis or occlusion. Normal arborization of the distal segments. Left Middle Cerebral Artery: Normal M1 segment of the MCA without focal stenosis or occlusion. Stable focal moderate to high-grade stenosis of the origin of a left M2 branch. Right Vertebral Artery: Normal V4 segment. Left Vertebral Artery: Normal V4 segment. Basilar Artery: Normal without focal stenosis or occlusion. Normal appearance of the proximal superior cerebellar arteries. Right Posterior Cerebral Artery: Normal P1 segment. Normal opacification of the distal [employer] segments. Left Posterior Cerebral Artery: Normal P1 segment. Stable moderate stenosis at the left P2 P3 junction. Normal opacification of the superior sagittal, straight, transverse, and sigmoid sinuses. CT/CT angio head neck IMPRESSION: ? 1.? No significant arterial narrowing or occlusion in the neck. ? 2.? No new or progressive arterial stenosis or large vessel occlusion of the intracranial arterial vasculature. Stable multifocal intracranial atherosclerotic narrowing including moderate supraclinoid left ICA, moderate to severe left M2 origin, and moderate left P2 P3 junction narrowing. Independent Historian Clinical information obtained from an independent historian. History obtained from or confirmed by: Spouse (Patient's ) External Record Review External record reviewed: Inpatient record, Office record, Outpatient record, Prior outpatient labs, Prior outpatient radiology, Primary care record and Outside ED record Chronic Conditions Patient?s care impacted by: Diabetes, Hypertension and Other (CVA) Critical Care Time Critical Care Time Critical Care Time: Yes Total Critical Care Time: 60 Attestation: I personally attest to this time spent taking care of the patient Discharge Plan Discharge Clinical Impression: Syncope Patient Disposition: Admitted As Inpatient
[2022-12-07 11:31] LABS: Appearance Urine Clear; Color Urine Yellow; Glucose Urine UA 500 mg/dL (Negative); Leukocyte Esterase Urine Negative (Negative); Nitrite Urine Negative (Negative); Specific Gravity - Urine >= 1.030 (1.005-1.025); Urine Blood Negative (Negative); Urine Ketones Negative (Negative); Urine Protein Trace mg/dL (Neg-Trace)
[2022-12-07 11:41] LABS: Amphetamine Screen Urine Not Detected (Not Detect); Barbiturates, Urine Not Detected (Not Detect); Benzodiazepines Screen Urine Not Detected (Not Detect); Cannabinoid Screen Urine Not Detected (Not Detect); Cocaine Screen Urine Not Detected (Not Detect); Fentanyl, urine Not Detected (Not Detect); Opiate Screen Urine Not Detected (Not Detect); Phencyclidine Screen Urine Not Detected (Not Detect)
--- NOTE | 2022-12-07 12:02 | P.HPHOSP_ITS ---
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 Patient does not fully remember event. He woke up in the morning and had some back pain behind the left scapula, sharp, no nradiating. Significant other mentions hearing a thud and found patient on the floor, patient was disoriented for about 2 minutes, was diaphoretic, reporting nausea. In ED patient denies chest pain, reports feeling back to normal. Review of Systems Review of Systems: Yes all other systems are reviewed and are negative [facility] Medical History Diabetes Hypertension Surgical History S/P appendectomy Social History Household Members: Spouse Housing: Apartment Do you presently have visiting nurse or other home services: No Patient Tobacco Use Status: Never used Tobacco e-Cigarette/Vaping Use: Never Used Advance Directives: Yes Advance Directives on File: Yes Advance Directives Date on File: 08/15/22 service: No Current occupational status: employed Meds Allergies Allergy/AdvReac Type Severity Reaction Status Date / Time No Known Allergies Allergy Mild NONE Unverified 06/22/20 16:05 Active Medications: Current Medications Dextrose (Dextrose 50 % 25 Gm/50 Ml Syringe) 25 gm IVPUSH Q15M PRN; Protocol PRN Reason: per Hypoglycemia Standing Ord. Glucose (Glucose Gel 15 Gm Gel..Gram.) 15 gm PO Q15M PRN; Protocol PRN Reason: per Hypoglycemia Standing Ord. Insulin Human Lispro (Insulin Lispro 100 Unit/Ml 3 Ml Vial) 0 unit SUBCUT QIDACHS [facility]; Protocol Pharmacy Consult (Consult Rx Perform Med Rec) 1 each MISCELLANE ONCE PRN PRN Reason: Consult order Physical Exam Vital Signs and Narrative: Vital Signs: Last Vital Signs Temp 97.9 F 12/07/22 08:51 Pulse 88 12/07/22 11:07 Resp 16 12/07/22 08:51 BP 143/89 H 12/07/22 11:07 Pulse Ox 98 12/07/22 11:21 O2 Del Method 12/07/22 11:21 BMI result Body Mass Index 26.4 General: AO X 3, no acute distress, left eye blind Resp: CTA bilateral, no accessory muscles used CVS: S1,S2,RRR GI: soft, non tender, non distended Neuro: right hemiparsis Psych: appropriate affect, appropriate insight Results Labs 12/07/22 10:49 12/07/22 08:58 Labs: Laboratory Results - last 24 hr 12/07/22 12/07/22 12/07/22 08:58 08:58 08:58 MCV MCH MCHC RDW Plt Count MPV Absolute Nucleated RBC Nucleated RBC % (auto) PT 12.2 INR 1.1 Anion Gap 13 Estim Creat Clear Calc 137.9 Estimated GFR > 60 Random Glucose 189 H Calcium 8.6 D Magnesium 1.7 Total Bilirubin 0.7 Direct Bilirubin 0.2 AST 20 ALT 19 Alkaline Phosphatase 40 Total Creatine Kinase 236 H Troponin I High Sens < 3.5 B-Natriuretic Peptide Total Protein 6.1 L Albumin 4.1 Urine Color Urine Appearance Urine pH Ur Specific Faith Urine Protein Urine Glucose (UA) Urine Ketones Urine Blood Urine Nitrite Ur Leukocyte Esterase Urine Opiates Screen Urine Fentanyl Screen Ur Barbiturates Screen Ur Phencyclidine Scrn Ur Amphetamines Screen U Benzodiazepines Scrn Urine Cocaine Screen U Marijuana (THC) Screen Influenza Type A (PCR) Influenza Type B (PCR) RSV RNA Qual (PCR) SARS-CoV-2 RNA (RT-PCR) 12/07/22 12/07/22 12/07/22 08:58 09:36 10:49 MCV 90.4 MCH 30.0 MCHC 33.3 RDW 12.8 Plt Count 129 L MPV 11.3 Absolute Nucleated RBC 0.000 Nucleated RBC % (auto) 0.0 PT INR Anion Gap Estim Creat Clear Calc Estimated GFR Random Glucose Calcium Magnesium Total Bilirubin Direct Bilirubin AST ALT Alkaline Phosphatase Total Creatine Kinase Troponin I High Sens B-Natriuretic Peptide < 10 Total Protein Albumin Urine Color Urine Appearance Urine pH Ur Specific Faith Urine Protein Urine Glucose (UA) Urine Ketones Urine Blood Urine Nitrite Ur Leukocyte Esterase Urine Opiates Screen Urine Fentanyl Screen Ur Barbiturates Screen Ur Phencyclidine Scrn Ur Amphetamines Screen U Benzodiazepines Scrn Urine Cocaine Screen U Marijuana (THC) Screen Influenza Type A (PCR) NEGATIVE Influenza Type B (PCR) NEGATIVE RSV RNA Qual (PCR) NEGATIVE SARS-CoV-2 RNA (RT-PCR) NEGATIVE 12/07/22 12/07/22 11:23 11:23 MCV MCH MCHC RDW Plt Count MPV Absolute Nucleated RBC Nucleated RBC % (auto) PT INR Anion Gap Estim Creat Clear Calc Estimated GFR Random Glucose Calcium Magnesium Total Bilirubin Direct Bilirubin AST ALT Alkaline Phosphatase Total Creatine Kinase Troponin I High Sens B-Natriuretic Peptide Total Protein Albumin Urine Color Yellow Urine Appearance Clear Urine pH 7.0 Ur Specific Faith >= 1.030 H Urine Protein Trace Urine Glucose (UA) 500 H Urine Ketones Negative Urine Blood Negative Urine Nitrite Negative Ur Leukocyte Esterase Negative Urine Opiates Screen Not Detected Urine Fentanyl Screen Not Detected Ur Barbiturates Screen Not Detected Ur Phencyclidine Scrn Not Detected Ur Amphetamines Screen Not Detected U Benzodiazepines Scrn Not Detected Urine Cocaine Screen Not Detected U Marijuana (THC) Screen Not Detected Influenza Type A (PCR) Influenza Type B (PCR) RSV RNA Qual (PCR) SARS-CoV-2 RNA (RT-PCR) Imaging Radiologist's Impressions: Impressions Chest X-Ray 12/07/22 09:10 IMPRESSION: No acute pulmonary pathology. Cervical Spine CT 12/07/22 10:11 IMPRESSION: No acute intracranial process seen. Chronic right maxillary sinus inflammatory changes. Mild straightening of cervical lordosis. There is degenerative disc changes with cervical spondylosis C5-C6 and C6-C7 disc levels. Moderate left C3-C4, C4-C5 and C5-C6 facet joint arthropathy. Head CT 12/07/22 10:11 IMPRESSION: No acute intracranial process seen. Chronic right maxillary sinus inflammatory changes. Mild straightening of cervical lordosis. There is degenerative disc changes with cervical spondylosis C5-C6 and C6-C7 disc levels. Moderate left C3-C4, C4-C5 and C5-C6 facet joint arthropathy. Head/Neck CTA 12/07/22 10:13 IMPRESSION: 1. No significant arterial narrowing or occlusion in the neck. 2. No new or progressive arterial stenosis or large vessel occlusion of the intracranial arterial vasculature. Stable multifocal intracranial atherosclerotic narrowing including moderate supraclinoid left ICA, moderate to severe left M2 origin, and moderate left P2 P3 junction narrowing. 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 Quality Stroke Does the patient have a stroke diagnosis?: No VTE Prior VTE?: No VTE Risk Level:: Medical - moderate - high VTE Device Contraindication: Treatment Not Indicated VTE Drug Contraindication: N/A - Med Ordered
[2022-12-07 12:19] LABS: D Dimer High Sensitivity < 150 NG/ML
--- NOTE | 2022-12-07 12:51 | PHA.MEDREC ---
Pharmacy Consult ? Medication Reconciliation Pharmacy has completed the medication reconciliation. med rec completed. spoke with patients daughter who takes care of his medications.
[2022-12-07 13:36] LABS: Glucose, Whole Blood 135 mg/dL (60-115)
[2022-12-07] MEDS: lisinopriL 40 MG TABLET PO (16:33)
[2022-12-07] MEDS: FLUoxetine HCl 20 MG CAPSULE PO (16:33)
[2022-12-07] MEDS: Aspirin Enteric Coated 81 MG TABLET.DR PO (16:33)
[2022-12-07] MEDS: Atorvastatin Calcium 40 MG TABLET PO (16:33)
[2022-12-07] MEDS: amLODIPine Besylate 10 MG TABLET PO (16:33)
[2022-12-07 18:16] LABS: Glucose, Whole Blood 125 mg/dL (60-115)
--- NOTE | 2022-12-07 19:38 | PC.NURSE ---
pt resting quietly while watching tv no apparent distress pt requested water- done
--- NOTE | 2022-12-07 21:08 | PC.NURSE ---
POC 139- no insulin coverage per protocol SSI
--- NOTE | 2022-12-07 21:11 | MHC.EDTECH ---
pt 2000 rounding done ,vitals sign taken ,2100 blood sugar done ,rn mynor aware of result .
[2022-12-07 21:23] LABS: Glucose, Whole Blood 139 mg/dL (60-115)
--- NOTE | 2022-12-07 22:57 | PC.NURSE ---
pt resting quietly while watching tv and on personal cell phone pt requested warm blanket- given
[2022-12-08] VITALS: BP 150/81; PULSE 81; RESP 16; TEMP 36.7; O2SAT 96
--- NOTE | 2022-12-08 | MHC.EDTECH ---
0000 rounding done ,vitals sign taken ,400 ml urine empty ,pt sleeping ,call grove within reach .
[2022-12-08] MEDS: 0.9 % Sodium Chloride Flush 3 ML SYRINGE IVFLUSH ×2 (00:21→08:04)
[2022-12-08 06:11] LABS: Hematocrit 43.8 % (42.0-52.0); Hemoglobin 14.3 g/dl (14.0-18.0); Mean Corpuscular HGB Conc 32.6 g/dl (31.0-36.0); Mean Corpuscular Hemoglobin 29.7 pg (27.0-33.0); Mean Corpuscular Volume 91.1 fL (80.0-98.0); Mean Platelet Volume 11.5 fL (9.4-12.4); Platelet Count 143 X10*3/uL (160-400); Red Blood Count 4.81 X10*6/uL (4.60-5.80); Red Cell Distribution Width 12.8 % (11.0-16.0); White Blood Count 6.6 X10*3/uL (4.8-10.8)
[2022-12-08 06:25] LABS: Anion Gap 13 (12-20); Blood Urea Nitrogen 12 mg/dL (9-16); Calcium 9.2 mg/dL (8.4-10.2); Carbon Dioxide 28 mmol/L (22-29); Chloride 104 mmol/L (96-108); Creatinine Clr Calc Pharmacy 139.9; Estimated Glomerular Filt Rate > 60; Glucose Fasting 152 mg/dL (60-99); Sodium 141 mmol/L (135-145)
[2022-12-08 06:31] LABS: Troponin-I High Sensitivity 3.5 ng/L (<3.5-35.0)
[2022-12-08 07:23] VITALS: BP 155/83; PULSE 85; RESP 14; TEMP 36.6; O2SAT 99
[2022-12-08 07:57] LABS: Glucose, Whole Blood 148 mg/dL (60-115)
[2022-12-08] MEDS: amLODIPine Besylate 10 MG TABLET PO (08:02)
[2022-12-08] MEDS: Aspirin Enteric Coated 81 MG TABLET.DR PO (08:02)
[2022-12-08] MEDS: lisinopriL 40 MG TABLET PO (08:02)
[2022-12-08] MEDS: FLUoxetine HCl 20 MG CAPSULE PO (08:03)
[2022-12-08] MEDS: Atorvastatin Calcium 40 MG TABLET PO (08:03)
--- NOTE | 2022-12-08 08:42 | PC.NURSE ---
Primarily pitcair[place] islander speaking, offering no complaints. Ambulating to bathroom with steady gait. Call grove within reach.
--- NOTE | 2022-12-08 09:48 | PC.NURSE ---
Per pt, to be discharged today.
--- NOTE | 2022-12-08 09:55 | PM.DS ---
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 Patient does not fully remember event.? He woke up in the morning and had some back pain behind the left scapula, sharp, nonradiating.? Significant other mentions hearing a thud and found patient on the floor, patient was disoriented for about 2 minutes, was diaphoretic, reporting nausea.? In ED patient denies chest pain, reports feeling back to normal. hospital course: Patient was admitted for syncope. He had no events on telemetry. Patient was entirely baseline during observation. Orthostatics were unremarkable. Negative D-dimer, negative troponin. History most consistent with vasovagal syncope given nausea and diaphoresis. For history of CVA with right hemiparesis he was continued on aspirin statin. For hypertension he was continued on lisinopril and amlodipine. Her diabetes is continue on insulin. For atherosclerosis he was continued on aspirin statin. Patient will be discharged home to follow-up with primary care physician Time Spent with Patient Time attestation: Total time managing care of this patient today ____ minutes. Discharge coordination time: Greater than 30 minutes Quality: Safe Use of Opioids Does Pt have an Active Cancer Diagnosis on the Problem List?: No Quality: Stroke Does the patient have a stroke diagnosis?: No Physical Exam Vital Signs: Vital Signs: Last Vital Signs Temp 97.9 F 12/08/22 07:23 Pulse 85 12/08/22 07:23 Resp 14 12/08/22 07:23 BP 155/83 H 12/08/22 07:23 Pulse Ox 99 12/08/22 07:23 O2 Del Method 12/08/22 07:23 BMI result Body Mass Index 26.4 General: AO X 3, no acute distress Resp: CTA bilateral, no accessory muscles used CVS: S1,S2,RRR GI: soft, non tender, non distended Neuro: motor grossly intact, alert Psych: appropriate affect, appropriate insight DS: Data Data Completed and Pending Labs on day of discharge: Laboratory Results - last 24 hr 12/07/22 12/07/22 12/07/22 08:58 08:58 09:36 WBC RBC Hgb Hct MCV MCH MCHC RDW Plt Count MPV Absolute Nucleated RBC Nucleated RBC % (auto) PT 12.2 INR 1.1 D-Dimer High Sensitivty < 150 Sodium Potassium Chloride Carbon Dioxide Anion Gap BUN Creatinine Estim Creat Clear Calc Estimated GFR POC Glucose Fasting Glucose Calcium Total Bilirubin 0.7 Direct Bilirubin 0.2 AST 20 ALT 19 Alkaline Phosphatase 40 Total Creatine Kinase 236 H Troponin I High Sens Total Protein 6.1 L Albumin 4.1 Urine Color Urine Appearance Urine pH Ur Specific [place] Urine Protein Urine Glucose (UA) Urine Ketones Urine Blood Urine Nitrite Ur Leukocyte Esterase Urine Opiates Screen Urine Fentanyl Screen Ur Barbiturates Screen Ur Phencyclidine Scrn Ur Amphetamines Screen U Benzodiazepines Scrn Urine Cocaine Screen U Marijuana (THC) Screen Influenza Type A (PCR) NEGATIVE Influenza Type B (PCR) NEGATIVE RSV RNA Qual (PCR) NEGATIVE SARS-CoV-2 RNA (RT-PCR) NEGATIVE 12/07/22 12/07/22 12/07/22 10:49 11:23 11:23 WBC 8.6 RBC 4.56 L Hgb 13.7 L Hct 41.2 L MCV 90.4 MCH 30.0 MCHC 33.3 RDW 12.8 Plt Count 129 L MPV 11.3 Absolute Nucleated RBC 0.000 Nucleated RBC % (auto) 0.0 PT INR D-Dimer High Sensitivty Sodium Potassium Chloride Carbon Dioxide Anion Gap BUN Creatinine Estim Creat Clear Calc Estimated GFR POC Glucose Fasting Glucose Calcium Total Bilirubin Direct Bilirubin AST ALT Alkaline Phosphatase Total Creatine Kinase Troponin I High Sens Total Protein Albumin Urine Color Yellow Urine Appearance Clear Urine pH 7.0 Ur Specific [place] >= 1.030 H Urine Protein Trace Urine Glucose (UA) 500 H Urine Ketones Negative Urine Blood Negative Urine Nitrite Negative Ur Leukocyte Esterase Negative Urine Opiates Screen Not Detected Urine Fentanyl Screen Not Detected Ur Barbiturates Screen Not Detected Ur Phencyclidine Scrn Not Detected Ur Amphetamines Screen Not Detected U Benzodiazepines Scrn Not Detected Urine Cocaine Screen Not Detected U Marijuana (THC) Screen Not Detected Influenza Type A (PCR) Influenza Type B (PCR) RSV RNA Qual (PCR) SARS-CoV-2 RNA (RT-PCR) 03/04/23 03/04/23 03/04/23 13:31 18:12 21:07 WBC RBC Hgb Hct MCV MCH MCHC RDW Plt Count MPV Absolute Nucleated RBC Nucleated RBC % (auto) PT INR D-Dimer High Sensitivty Sodium Potassium Chloride Carbon Dioxide Anion Gap BUN Creatinine Estim Creat Clear Calc Estimated GFR POC Glucose 135 H 125 H 139 H Fasting Glucose Calcium Total Bilirubin Direct Bilirubin AST ALT Alkaline Phosphatase Total Creatine Kinase Troponin I High Sens Total Protein Albumin Urine Color Urine Appearance Urine pH Ur Specific [place] Urine Protein Urine Glucose (UA) Urine Ketones Urine Blood Urine Nitrite Ur Leukocyte Esterase Urine Opiates Screen Urine Fentanyl Screen Ur Barbiturates Screen Ur Phencyclidine Scrn Ur Amphetamines Screen U Benzodiazepines Scrn Urine Cocaine Screen U Marijuana (THC) Screen Influenza Type A (PCR) Influenza Type B (PCR) RSV RNA Qual (PCR) SARS-CoV-2 RNA (RT-PCR) 12/08/22 12/08/22 12/08/22 05:11 05:11 05:11 WBC 6.6 RBC 4.81 Hgb 14.3 Hct 43.8 MCV 91.1 MCH 29.7 MCHC 32.6 RDW 12.8 Plt Count 143 L MPV 11.5 Absolute Nucleated RBC 0.000 Nucleated RBC % (auto) 0.0 PT INR D-Dimer High Sensitivty Sodium 141 Potassium 4.0 Chloride 104 Carbon Dioxide 28 Anion Gap 13 BUN 12 Creatinine 0.68 Estim Creat Clear Calc 139.9 Estimated GFR > 60 POC Glucose Fasting Glucose 152 H Calcium 9.2 D Total Bilirubin Direct Bilirubin AST ALT Alkaline Phosphatase Total Creatine Kinase Troponin I High Sens 3.5 Total Protein Albumin Urine Color Urine Appearance Urine pH Ur Specific [place] Urine Protein Urine Glucose (UA) Urine Ketones Urine Blood Urine Nitrite Ur Leukocyte Esterase Urine Opiates Screen Urine Fentanyl Screen Ur Barbiturates Screen Ur Phencyclidine Scrn Ur Amphetamines Screen U Benzodiazepines Scrn Urine Cocaine Screen U Marijuana (THC) Screen Influenza Type A (PCR) Influenza Type B (PCR) RSV RNA Qual (PCR) SARS-CoV-2 RNA (RT-PCR) 12/08/22 07:26 WBC RBC Hgb Hct MCV MCH MCHC RDW Plt Count MPV Absolute Nucleated RBC Nucleated RBC % (auto) PT INR D-Dimer High Sensitivty Sodium Potassium Chloride Carbon Dioxide Anion Gap BUN Creatinine Estim Creat Clear Calc Estimated GFR POC Glucose 148 H Fasting Glucose Calcium Total Bilirubin Direct Bilirubin AST ALT Alkaline Phosphatase Total Creatine Kinase Troponin I High Sens Total Protein Albumin Urine Color Urine Appearance Urine pH Ur Specific [place] Urine Protein Urine Glucose (UA) Urine Ketones Urine Blood Urine Nitrite Ur Leukocyte Esterase Urine Opiates Screen Urine Fentanyl Screen Ur Barbiturates Screen Ur Phencyclidine Scrn Ur Amphetamines Screen U Benzodiazepines Scrn Urine Cocaine Screen U Marijuana (THC) Screen Influenza Type A (PCR) Influenza Type B (PCR) RSV RNA Qual (PCR) SARS-CoV-2 RNA (RT-PCR) Discharge Plan Discharge Anticipated Discharge Date/Time: 12/08/22 09:53 Patient Disposition: Home, Self-Care Discharge Diagnosis: syncope Referrals: Yuliya Morris MD [Primary Care Provider] - 1 Week Discharge Medications: Continued atorvastatin 40 mg Tablet 40 mg PO DAILY Qty: 40 0RF metformin 500 mg tablet 500 mg PO BID Qty: 60 0RF aspirin 81 mg capsule 81 mg PO DAILY Qty: 30 0RF (DME) walker Misc See Rx Instructions .Route Qty: 1 0RF Rx Instructions: As directed (DME) miscellaneous medical supply Misc See Rx Instructions .Route Qty: 1 0RF Rx Instructions: As directed (DME) walker Misc See Rx Instructions .Route Qty: 1 0RF Rx Instructions: Rolling walker with wheels, use as directed amlodipine 10 mg tablet 1 tab PO DAILY lisinopril 40 mg tablet 1 tab PO QAM fluoxetine 20 mg capsule 1 cap PO QAM Discharge Orders: Discharge Order (Routine); Ordered 12/08/22 Ordered By: Idris Sharma Diet: Advance to usual diet Activity on Discharge: As tolerated Stand Alone Forms: Patient Portal Discharge page Care Plan Goals: avoid syncopal episodes Health Concerns: syncope Plan of Treatment: was most likely vasovagal, monitor for presyncopal symptoms and if present quickly sit down, have cold cup of water. if further episodes seek emergent care Assessment: see above
== END 2022-12-08 10:10 | disposition home or self-care (01) ==
LOC: HO.ED 11:45 → HO.EDOVER 12:06 → HO.IMC 12-08 07:48
PROVIDERS: Physician Assistant Medical; Admitting Provider Internal Medicine; Emergency Provider Emergency Medicine; PCP Family Medicine; Visit Provider Internal Medicine
DX: R55 Syncope and collapse (principal); E11.9 Type 2 diabetes mellitus without complications; H54.7 Unspecified visual loss; R47.1 Dysarthria and anarthria; M54.9 Dorsalgia, unspecified; I69.351 Hemiplegia and hemiparesis following cerebral infarction affecting right dominant side; I10 Essential (primary) hypertension
CPT/HCPCS: 0241U; 36415; 70450; 70496; 70498; 71046; 72125; 80048; 80076; 80307; 81003; 82550; 82947; 83735; 83880; 84484; 85027; 85379; 85610; 93005; 96372; 99222; 99285; Q9967

== ENCOUNTER 2023-02-03 13:43 | Outpatient (RCR) | payer MEDICAID, SELFPAY | END 2023-04-10 13:49 | disposition home or self-care (01) | LOC: HO.PT 13:43 | PROVIDERS: PCP Registered Nurse; Visit Provider Student in an Organized Health Care Education/Training Program | DX: M75.01 Adhesive capsulitis of right shoulder (principal) ==

== ENCOUNTER 2023-05-04 01:19 | Emergency (ER) | payer MEDICAID, SELFPAY ==
--- NOTE | 2023-05-04 01:28 | ECG_ITS ---
Test Reason : SYNCOPEE Blood Pressure : / mmHG Vent. Rate : 072 BPM Atrial Rate : 072 BPM P-R Int : 140 ms QRS Dur : 098 ms QT Int : 388 ms P-R-T Axes : 058 027 043 degrees QTc Int : 424 ms Normal sinus rhythm Normal ECG When compared with ECG of 07-DEC-2022 09:30, No significant change was found Referred By: David Hartmann Electronically Signed By:BUNNY TODD MD
--- NOTE | 2023-05-04 01:32 | ED_ITS ---
HPI - General Adult General Stated complaint: DIZZINESS, FALL Time Seen by Provider: 05/04/23 01:23 Source: patient and EMS Mode of arrival: EMS Limitations: no limitations History of Present Illness HPI narrative: 48-year-old male with history of diabetes and stroke presents with an episode of lightheadedness. Patient was in the bathroom when he stood up and became lightheaded and dizzy. He fell to the ground with a questionable loss consciousness. He denies head trauma, headache, focal neurologic deficit, fever, chills. He denied any chest pain or palpitations. He denies any diarrhea constipation. Appetite has been appropriate. Symptoms were described as moderate to severe. There was no clear relieving or exacerbating features. Patient was brought in by EMS with a blood sugar for approximately 150. He was placed in a cervical spine collar but has no neck pain., Related Data Home Medications Medication Instructions Recorded Confirmed amlodipine 10 mg tablet 1 tab PO DAILY 12/07/22 12/07/22 fluoxetine 20 mg capsule 1 cap PO QAM depressive disorder 12/07/22 12/07/22 lisinopril 40 mg tablet 1 tab PO QAM 12/07/22 12/07/22 Previous Rx's Medication Instructions Recorded aspirin 81 mg capsule 81 mg PO DAILY #30 caps 08/14/22 atorvastatin 40 mg tablet 40 mg PO DAILY #40 tabs 08/14/22 metformin 500 mg tablet 500 mg PO BID #60 tabs 08/14/22 miscellaneous medical supply #1 ea 08/14/22 walker #1 ea 08/14/22 walker #1 ea 08/14/22 Allergies Allergy/AdvReac Type Severity Reaction Status Date / Time No Known Allergies Allergy Mild NONE Unverified 06/22/20 16:05 Review of Systems Review of Systems: CONSTITUTIONAL: Denies weight loss, fever and chills. HEENT: Denies changes in vision and hearing. RESPIRATORY: Denies SOB and cough. CV: Denies palpitations no CP. GI: Denies abdominal pain, nausea, vomiting and diarrhea. : Denies dysuria and urinary frequency. MSK: Denies myalgia and joint pain. SKIN: Denies rash and pruritus. NEUROLOGICAL: Denies headache question of syncope. PSYCHIATRIC: Denies recent changes in mood. Denies anxiety and depression. All other ROS are negative unless in HPI PMFSH Past Medical History Medical History Diabetes Hypertension Surgical History S/P appendectomy Social History Social History Household Members: Spouse Housing: Apartment Do you presently have visiting nurse or other home services: No Alcohol intake: never Patient Tobacco Use Status: Never used Tobacco e-Cigarette/Vaping Use: Never Used Advance Directives Date on File: 08/15/22 service: No Current occupational status: employed Physical Exam ED GEN: Well developed, no acute distress, alert, oriented HEENT: Normocephalic, atraumatic, normal external ears, nose appears normal, no oropharyngeal edema or exudates Eyes: Normal to appearance Neck: Supple, no lymphadenopathy Respiratory: Talks in complete sentences, no respiratory distress, clear to auscultation bilaterally Cardiovascular: Regular rate and rhythm, no murmurs rubs or gallops Abdomen: Soft, nontender, nondistended, no guarding, no rebound Back: No CVA tenderness Extremities: No clubbing cyanosis or edema Neurologic: No focal neurologic deficits, cranial nerves 2-12 intact, strength is 5/5 bilaterally Skin: No rash Course Reevaluation(s) Reevaluation #1: Cervical spine collar was removed based on Pender C-spine criteria Time: :33 Medical Decision Making Medical Decision Making MDM Narrative: 48-year-old male with history of diabetes presents after a fall, lightheadedness. Patient denies any head injury may have had a brief loss of consciousness but is unclear. Patient does have some mild nausea but no vomiting. His examination is benign. Will obtain an EKG to rule out cardiac dysrhythmia. Will obtain orthostatic vital signs to rule out orthostatic hypotension provide patient with IV fluids either way. He did not appear to be hypoglycemic as blood sugar in the field was 150. Patient could have electrolyte abnormality, anemia. Will check labs for this. Will check an EKG for cardiac dysrhythmia. I suspect patient will be able to be discharged. Patient denies head trauma and therefore will not obtain a CT scan of the head. Differential Diagnosis Differential Diagnoses: The differential diagnosis associated with the presentation includes (See above) Admission/Observation Consideration of admission/observation: Escalation of care including admission/observation considered Lab Data MDM Lab Attestation statement: I reviewed the patient's lab results. Independent Interpretation I performed an independent interpretation of an: EKG (Normal sinus rhythm heart rate 72, no acute ST elevations depressions) Independent Historian Clinical information obtained from an independent historian. History obtained from or confirmed by: EMS Prescription Management I considered prescription management with: Pain Medication Chronic Conditions Patient?s care impacted by: Diabetes Discharge Plan Discharge Clinical Impression: Lightheadedness Patient Disposition: Still a Patient Instructions: Lightheadedness (ED) Prescriptions: No Action atorvastatin 40 mg Tablet 40 mg PO DAILY Qty: 40 0RF metformin 500 mg tablet 500 mg PO BID Qty: 60 0RF aspirin 81 mg capsule 81 mg PO DAILY Qty: 30 0RF (DME) walker Misc See Rx Instructions .Route Qty: 1 0RF Rx Instructions: As directed (DME) miscellaneous medical supply Misc See Rx Instructions .Route Qty: 1 0RF Rx Instructions: As directed (DME) walker Misc See Rx Instructions .Route Qty: 1 0RF Rx Instructions: Rolling walker with wheels, use as directed amlodipine 10 mg tablet 1 tab PO DAILY lisinopril 40 mg tablet 1 tab PO QAM fluoxetine 20 mg capsule 1 cap PO QAM Referrals: [facility] [place] [place] [facility] [Provider Group]
[2023-05-04 01:54] LABS: MANUAL DIFF FLAG NO
[2023-05-04 02:00] VITALS: BP 142/94; BP 145/86; PULSE 73; PULSE 76; RESP 20; TEMP 36.7; O2SAT 97; O2SAT 98; BMI 27.2
[2023-05-04 02:06] VITALS: BP 134/81; PULSE 71; RESP 15; TEMP 36.7; O2SAT 97; O2SAT 98
[2023-05-04 02:09] VITALS: BP 134/81; PULSE 71
[2023-05-04 02:10] VITALS: BP 144/84; PULSE 73
[2023-05-04 02:11] VITALS: BP 139/85; PULSE 80
[2023-05-04] MEDS: 0.9 % Sodium Chloride 1,000 ML 999 ML IV (02:11)
[2023-05-04 02:13] LABS: Anion Gap 15 (12-20); Blood Urea Nitrogen 12 mg/dL (9-16); Calcium 9.3 mg/dL (8.4-10.2); Carbon Dioxide 26 mmol/L (22-29); Chloride 103 mmol/L (96-108); Creatinine Clr Calc Pharmacy 140.4; Estimated Glomerular Filt Rate > 60; Glucose Random 144 mg/dL (60-115); Potassium 4.3 mmol/L (3.3-5.1); Sodium 140 mmol/L (135-145)
[2023-05-04 02:21] LABS: Basophils Absolute Auto 0.1 X10*3/uL (0.0-0.2); Basophils Percent Auto 0.7 % (0-2); Eosinophils Absolute Auto 0.1 X10*3/uL (0.0-0.4); Eosinophils Percent Auto 1.2 % (0-4); Hematocrit 40.6 % (42.0-52.0); Hemoglobin 13.3 g/dl (14.0-18.0); Imm Gran Abs Auto 0.03 X10*3/uL (0.00-0.03); Imm Gran Pct Auto 0.4 % (0.0-0.4); Lymphocytes Absolute Auto 2.7 X10*3/uL (1.2-4.9); Lymphocytes Percent Auto 39.1 % (20-40); Mean Corpuscular HGB Conc 32.8 g/dl (31.0-36.0); Mean Corpuscular Hemoglobin 30.4 pg (27.0-33.0); Mean Corpuscular Volume 92.9 fL (80.0-98.0); Monocytes Absolute Auto 0.6 X10*3/uL (0.1-1.2); Monocytes Percent Auto 8.6 % (2-11); Neutrophils Absolute Auto 3.4 x10*3/uL (2.0-8.3); Platelet Count 145 X10*3/uL (160-400); Red Blood Count 4.37 X10*6/uL (4.60-5.80); Red Cell Distribution Width 12.6 % (11.0-16.0); White Blood Count 6.9 X10*3/uL (4.8-10.8)
--- NOTE | 2023-05-04 02:30 | PC.NURSE ---
PT BIBA. Unwitnessed syncopal episode sitting to stand while toileting. PT reports he did not hit his head but did have a short period of lost unconsciousness. Pt has history of vagal vaso syncope and stroke. Pt alert and oriented, vss, EKG completed, placed on manager cardiac- NSR, 20g in LAC. labs drawn, fluids running, ortho b/p completed. at bedside, Call grove within reach. WIll continue to follow plan of care.
--- OUTSIDE RECORDS SUMMARY | 2023-05-04 02:40 | XMS_ITS | Continuity of Care Document ---
Author Name Unknown Organization [facility] Address [address] [place] [id number]- Care Team Providers Care Sports Medicine Trainer Name Role Phone Fatmata MOISE, Pam Soto Primary Care Physicia n [id number] Date(s): 10/08/22 - 01/19/[address] [address]- Encounter Diagnosis Cerebral infarction, unspecified(Final) - Discharge Disposition: A-D/C Home Attending Physician: Pam Avilez NP Admitting Physician: Pam Avilez NP Referring Physician: Pam Avilez NP Patient Care team information Care Team Personnel Name: Pam Avilez NP Position: Reference Physician Member Role: PCP Address: Address: [address] [place] [address]- Care Team Related Persons Name: PEDRITO NOLEN Address: home [address] [place] [address] Name: STATES NO ONE, PT
--- OUTSIDE RECORDS SUMMARY | 2023-05-04 02:41 | XMS_ITS | Continuity of Care Document ---
Author Name Unknown Organization [facility] Address [address] [place] [address]- Care Team Providers Care Vmware Administrator Name Role Phone Fatmata MOISE, Pam Soto Primary Care Physicia n Encounter [facility] [place] Date(s): 10/14/22 - 04/20/[address] [address]- Encounter Diagnosis Dysphasia following cerebral infarction(Final) - Discharge Disposition: A-D/C Home Attending Physician: Pam Avilez NP Admitting Physician: Pam Avilez NP Referring Physician: Pam Avilez NP Patient Care team information Care Team Personnel Name: Pam Avilez NP Position: Reference Physician Member Role: PCP Address: Address: [address] [place] [address]- Care Team Related Persons Name: PEDRITO NOLEN Address: [address] [place] [address] Name: STATES NO ONE, PT
[2023-05-04 02:58] VITALS: BP 151/90; PULSE 74; RESP 16; TEMP 36.8; O2SAT 98
== END 2023-05-04 04:55 | disposition home or self-care (01) ==
PROVIDERS: Emergency Provider Emergency Medicine; PCP Registered Nurse
DX: S00.93XA Contusion of unspecified part of head, initial encounter (principal); R42 Dizziness and giddiness; R55 Syncope and collapse; W01.10XA Fall on same level from slipping, tripping and stumbling with subsequent striking against unspecified object, initial encounter; Y93.9 Activity, unspecified; Y92.9 Unspecified place or not applicable; Y99.9 Unspecified external cause status; Z79.899 Other long term (current) drug therapy
CPT/HCPCS: 36415; 80048; 85025; 93005; 99285

== ENCOUNTER → 2023-05-04 01:28 | Outpatient (BNV) | payer MEDICAID, SELFPAY | PROVIDERS: Emergency Provider Emergency Medicine; PCP Registered Nurse; Visit Provider Internal Medicine Cardiovascular Disease | DX: R55 Syncope and collapse (principal) | CPT/HCPCS: 93010 ==

== ENCOUNTER 2023-07-01 16:33 | Emergency (ER) | payer MEDICAID, SELFPAY ==
--- NOTE | ~2023-07-01 | CT_ITS ---
EXAMINATION: CT HEAD WITHOUT CONTRAST CT CERVICAL WITHOUT CONTRAST CLINICAL INFORMATION: Trauma. Pain. COMPARISON: 12/07/2022. TECHNIQUE: Contiguous axial imaging was performed through the head and cervical spine without intravenous administration of contrast. Sagittal and coronal reformatted images also obtained. This CT examination was performed using dose optimization techniques as appropriate, variously including the following: *Automated exposure control *Adjustment of mA and/or kV according to patient size (this includes techniques or standardized protocols for targeted exams where dose is matched to indication/reason for exam; i.e. extremities or head) *Use of iterative reconstruction technique DLP: 1206 mGy-cm FINDINGS: There is cerebral volume loss with prominence of the lateral and the third ventricles. The cortical sulci are widened appropriately. The fourth ventricle and basal cisterns are normally outlined. There is mild to moderate bilateral periventricular and central white matter diminished attenuation. Old left basal ganglia lacunar infarct is noted. There are also old small right cerebellar infarcts and an old left pontine lacunar infarct. There is no acute territorial defect, hemorrhage or midline shift. The extra-axial spaces are unremarkable. Calvarium: Intact. Maxillofacial sinuses and mastoids: There is a right maxillary sinus opacity. The remaining visualized maxillofacial sinuses and mastoids are clear. There are nasal cavity opacities with nasal airway narrowing. The left globe is atrophic with calcification. Cervical spine: There is straightening of the expected cervical spine curvature. There is mild diffuse cervical disc degenerative change with loss of mild loss of disc space, endplate change and prominent posterior osteophytes associated with diffuse ppiq-cl-przjlhzt facet osteoarthritic hypertrophic change with multilevel umbk-aa-swnzxnad spinal canal and neuroforaminal narrowing. There is no fracture. The soft tissues are unremarkable. The upper lung perez are clear. CT/CT cervical spine wo IV con IMPRESSION: Cerebral volume loss and urzd-zc-jkbgpvxz bilateral periventricular and central white matter diminished attenuation which is nonspecific but likely to represent microvascular disease. No acute intracranial abnormality. Cervical disc degenerative change. No fracture.
--- NOTE | ~2023-07-01 | CT_ITS ---
EXAMINATION: CT HEAD WITHOUT CONTRAST CT CERVICAL WITHOUT CONTRAST CLINICAL INFORMATION: Trauma. Pain. COMPARISON: 12/07/2022. TECHNIQUE: Contiguous axial imaging was performed through the head and cervical spine without intravenous administration of contrast. Sagittal and coronal reformatted images also obtained. This CT examination was performed using dose optimization techniques as appropriate, variously including the following: *Automated exposure control *Adjustment of mA and/or kV according to patient size (this includes techniques or standardized protocols for targeted exams where dose is matched to indication/reason for exam; i.e. extremities or head) *Use of iterative reconstruction technique DLP: 1206 mGy-cm FINDINGS: There is cerebral volume loss with prominence of the lateral and the third ventricles. The cortical sulci are widened appropriately. The fourth ventricle and basal cisterns are normally outlined. There is mild to moderate bilateral periventricular and central white matter diminished attenuation. Old left basal ganglia lacunar infarct is noted. There are also old small right cerebellar infarcts and an old left pontine lacunar infarct. There is no acute territorial defect, hemorrhage or midline shift. The extra-axial spaces are unremarkable. Calvarium: Intact. Maxillofacial sinuses and mastoids: There is a right maxillary sinus opacity. The remaining visualized maxillofacial sinuses and mastoids are clear. There are nasal cavity opacities with nasal airway narrowing. The left globe is atrophic with calcification. Cervical spine: There is straightening of the expected cervical spine curvature. There is mild diffuse cervical disc degenerative change with loss of mild loss of disc space, endplate change and prominent posterior osteophytes associated with diffuse lben-mk-ippbliha facet osteoarthritic hypertrophic change with multilevel amcy-gc-mgpwbfgw spinal canal and neuroforaminal narrowing. There is no fracture. The soft tissues are unremarkable. The upper lung perez are clear. CT/CT head/brain wo IV con IMPRESSION: Cerebral volume loss and mhgi-rp-uorznget bilateral periventricular and central white matter diminished attenuation which is nonspecific but likely to represent microvascular disease. No acute intracranial abnormality. Cervical disc degenerative change. No fracture.
[2023-07-01 16:45] VITALS: BP 138/90; BP 160/90; PULSE 109; PULSE 120; RESP 18; TEMP 36.8; O2SAT 96; O2SAT 98; BMI 32.9
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
[2023-07-01 17:37] LABS: MANUAL DIFF FLAG NO
[2023-07-01 17:40] LABS: Basophils Percent Auto 0.4 % (0-2); Eosinophils Absolute Auto 0.1 X10*3/uL (0.0-0.4); Eosinophils Percent Auto 0.7 % (0-4); Hematocrit 41.5 % (42.0-52.0); Hemoglobin 13.8 g/dl (14.0-18.0); Imm Gran Abs Auto 0.04 X10*3/uL (0.00-0.03); Imm Gran Pct Auto 0.5 % (0.0-0.4); Lymphocytes Absolute Auto 1.7 X10*3/uL (1.2-4.9); Lymphocytes Percent Auto 22.9 % (20-40); Mean Corpuscular HGB Conc 33.3 g/dl (31.0-36.0); Mean Corpuscular Volume 90.2 fL (80.0-98.0); Mean Platelet Volume 10.5 fL (9.4-12.4); Monocytes Absolute Auto 0.6 X10*3/uL (0.1-1.2); Monocytes Percent Auto 7.5 % (2-11); Neutrophils Absolute Auto 5.1 x10*3/uL (2.0-8.3); Platelet Count 156 X10*3/uL (160-400); Red Cell Distribution Width 11.9 % (11.0-16.0); White Blood Count 7.5 X10*3/uL (4.8-10.8)
[2023-07-01 17:45] LABS: INTERNATIONAL NORM RATIO 1.1 (0.9-1.1); Prothrombin Time 12.9 SEC (11.1-13.3)
[2023-07-01 17:53] LABS: Anion Gap 12 (12-20); Blood Urea Nitrogen 10 mg/dL (9-16); Calcium 9.4 mg/dL (8.4-10.2); Carbon Dioxide 28 mmol/L (22-29); Chloride 102 mmol/L (96-108); Creatinine Clr Calc Pharmacy 130.7; Estimated Glomerular Filt Rate > 60; Glucose Random 156 mg/dL (60-115); Potassium 3.7 mmol/L (3.3-5.1); Sodium 138 mmol/L (135-145)
[2023-07-01] MEDS: Diphth,Pertus(ACell),Tet Adult 0.5 ML SYRINGE IM (18:08)
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
[2023-07-01 18:41] VITALS: BP 151/94; PULSE 98; RESP 18; TEMP 36.3; O2SAT 97
== END 2023-07-01 20:18 | disposition home or self-care (01) ==
PROVIDERS: Nurse Practitioner Family; Emergency Provider Emergency Medicine
DX: S09.90XA Unspecified injury of head, initial encounter (principal); S00.91XA Abrasion of unspecified part of head, initial encounter; R51.9 Headache, unspecified; M54.2 Cervicalgia; V28.49XA Other motorcycle driver injured in noncollision transport accident in traffic accident, initial encounter; Y93.9 Activity, unspecified; Y92.410 Unspecified street and highway as the place of occurrence of the external cause; Y99.8 Other external cause status; Z79.899 Other long term (current) drug therapy; Z23 Encounter for immunization
CPT/HCPCS: 36415; 70450; 72125; 80048; 85025; 85610; 90471; 90715; 99284

== ENCOUNTER 2023-08-30 16:26 | Emergency (ER) | payer MEDICAID, SELFPAY | END 2023-08-30 17:15 | disposition left against medical advice (07) | PROVIDERS: Emergency Provider Emergency Medicine | DX: M54.9 Dorsalgia, unspecified (principal) ==

== ENCOUNTER 2023-10-17 08:08 | Outpatient (REF) | payer MEDICAID, SELFPAY ==
[2023-10-17 12:29] LABS: Cholesterol 120 mg/dL (<200); HDL Cholesterol 39 mg/dL (>40); LDL Cholesterol Calculated 67 mg/dL (<100); Triglycerides 74 mg/dL (<150)
[2023-10-17 12:40] LABS: Vitamin B12 498 pg/mL (200-900)
[2023-10-17 12:46] LABS: Creatinine Urine 107.97 mg/dL; Microalbum/Creatinine Ratio Ur 91.6 ug/mg cr (<30)
== END 2023-10-17 08:09 | disposition home or self-care (01) ==
LOC: HO.HHCL 08:08
PROVIDERS: Visit Provider Registered Nurse
DX: E11.9 Type 2 diabetes mellitus without complications (principal)
CPT/HCPCS: 36415; 80061; 82043; 82570; 82607

== ENCOUNTER → 2023-12-24 20:30 | Outpatient (REF) | payer MEDICAID, SELFPAY | LOC: HO.SL 20:30 | PROVIDERS: PCP Registered Nurse; Visit Provider Registered Nurse | DX: Z13.89 Encounter for screening for other disorder (principal) ==

== ENCOUNTER 2024-04-05 10:04 | Outpatient (REF) | payer MEDICAID, SELFPAY | END 2024-04-05 10:05 | disposition home or self-care (01) | LOC: HO.HHCLNP 10:04 | PROVIDERS: Visit Provider Family Medicine | DX: K29.70 Gastritis, unspecified, without bleeding (principal) | CPT/HCPCS: 87338 ==

== ENCOUNTER 2024-09-27 10:18 | Outpatient (REF) | payer MEDICAID, SELFPAY ==
--- NOTE | ~2024-09-27 | XR_ITS ---
EXAMINATION: XR SHOULDER, LEFT CLINICAL INFORMATION: One-month history of atraumatic left shoulder pain. No history of trauma. COMPARISON: None available. TECHNIQUE: 3 views of the left shoulder. FINDINGS: Moderate degenerative changes in the acromioclavicular joint with joint space narrowing and hypertrophic change. Moderate narrowing of the subacromial space. Moderate degenerative changes in the glenohumeral joint with inferior hypertrophic change. XR/XR shoulder LT min 2V IMPRESSION: Moderate degenerative changes. This study was presented today to September 27, 2024 for interpretation. Stat results provided at this time as requested by referring provider. Electronically signed by: Kandi Winter MD 09/27/2024 01:13 PM MARYBEL SALAS
== END 2024-09-27 10:19 | disposition home or self-care (01) ==
LOC: HO.HHCX 10:18
PROVIDERS: Visit Provider Emergency Medicine
DX: M25.512 Pain in left shoulder (principal)
CPT/HCPCS: 73030

== ENCOUNTER 2024-10-01 07:52 | Outpatient (REF) | payer MEDICAID, SELFPAY ==
[2024-10-01 11:44] LABS: MANUAL DIFF FLAG NO
[2024-10-01 11:50] LABS: Basophils Percent Auto 0.6 % (0-2); Eosinophils Absolute Auto 0.1 X10*3/uL (0.0-0.4); Hematocrit 46.2 % (42.0-52.0); Hemoglobin 14.8 g/dl (14.0-18.0); Imm Gran Abs Auto 0.02 X10*3/uL (0.00-0.03); Imm Gran Pct Auto 0.3 % (0.0-0.4); Lymphocytes Absolute Auto 1.9 X10*3/uL (1.2-4.9); Mean Corpuscular Hemoglobin 29.8 pg (27.0-33.0); Mean Corpuscular Volume 93.1 fL (80.0-98.0); Mean Platelet Volume 11.4 fL (9.4-12.4); Monocytes Absolute Auto 0.5 X10*3/uL (0.1-1.2); Monocytes Percent Auto 8.2 % (2-11); Neutrophils Absolute Auto 3.6 x10*3/uL (2.0-8.3); Neutrophils Percent Auto 58.9 % (45-73); Platelet Count 144 X10*3/uL (160-400); Red Blood Count 4.96 X10*6/uL (4.60-5.80); Red Cell Distribution Width 12.9 % (11.0-16.0); White Blood Count 6.2 X10*3/uL (4.8-10.8)
[2024-10-01 12:29] LABS: Alanine Aminotransferase 33 U/L (0-40); Albumin Level 4.6 g/dL (3.5-5.0); Alkaline Phosphatase 35 U/L (39-117); Anion Gap 11 (12-20); Aspartate Amino Transferase 31 U/L (5-37); Bilirubin Total 0.5 mg/dL (0.0-1.0); Blood Urea Nitrogen 16 mg/dL (9-16); Calcium 9.2 mg/dL (8.4-10.2); Carbon Dioxide 29 mmol/L (22-29); Chloride 103 mmol/L (96-108); Cholesterol 131 mg/dL (<200); Estimated Glomerular Filt Rate > 60; Glucose Random 102 mg/dL (60-115); HDL Cholesterol 43 mg/dL (>40); LDL Cholesterol Calculated 70 mg/dL (<100); Potassium 3.9 mmol/L (3.3-5.1); Sodium 139 mmol/L (135-145); TSH reflex Free T4 1.19 uIU/mL (0.32-4.0); Total Protein 7.1 g/dL (6.5-8.0); Triglycerides 91 mg/dL (<150)
[2024-10-01 12:32] LABS: Prostate Specific Antigen 0.82 ng/mL (<0.05-4.0)
[2024-10-01 12:37] LABS: Creatinine Urine 99.88 mg/dL
[2024-10-01 13:14] LABS: CT PCR NOT DETECTED (Not Detect.); NG PCR NOT DETECTED (Not Detect.)
[2024-10-01 14:46] LABS: HBS Num1 > 1000.00 mIU/mL (0-7.99); HBc Num1 0.11 S/CO (0.00-0.79); HBsAGNum1 0.34 S/CO (0.00-0.99); HIV AB/AG Nonreactive (Nonreactive); HIV Num 1 0.05 S/CO (0.00-0.99); Hepatitis B Core Antibody Nonreactive (Nonreactive); Hepatitis B Surface Antigen Negative (Negative); ~Hepatitis B Surface Antibody REACTIVE (Nonreactive)
[2024-10-04 14:18] LABS: HCV Log PCR <1.18 NOT DETECTED Log IU/mL (NOT DETECTED); HepC Viral Load <15 NOT DETECTED IU/mL (NOT DETECTED)
[2024-10-04 14:54] LABS: RPR Rapid Plasma Reagin NON-REACTIVE (NON-REACTIVE)
== END 2024-10-01 07:53 | disposition home or self-care (01) ==
LOC: HO.HHCL 07:52
PROVIDERS: Visit Provider Registered Nurse
DX: Z00.00 Encounter for general adult medical examination without abnormal findings (principal)
CPT/HCPCS: 80053; 80061; 82043; 82570; 84153; 84443; 85025; 86592; 86704; 86706; 87340; 87389; 87491; 87522; 87591

== ENCOUNTER → 2024-11-04 10:41 | Outpatient (BNVA) | payer MEDICAID, SELFPAY | PROVIDERS: PCP Registered Nurse; Visit Provider Physician Assistant | DX: M75.22 Bicipital tendinitis, left shoulder (principal); M75.82 Other shoulder lesions, left shoulder; M19.012 Primary osteoarthritis, left shoulder | CPT/HCPCS: 99212 ==

== ENCOUNTER 2024-11-16 08:18 | Outpatient (REF) | payer MEDICAID, SELFPAY | END 2024-11-16 08:19 | disposition home or self-care (01) | LOC: HO.US 08:18 | PROVIDERS: PCP Registered Nurse; Visit Provider Registered Nurse | DX: D69.6 Thrombocytopenia, unspecified (principal) | CPT/HCPCS: 76700; 76981 ==

== ENCOUNTER → 2024-11-16 08:21 | Outpatient (BNV) | payer MEDICAID, SELFPAY | PROVIDERS: PCP Registered Nurse; Visit Provider Radiology Diagnostic Radiology | DX: D69.6 Thrombocytopenia, unspecified (principal) | CPT/HCPCS: 76700 ==

== ENCOUNTER 2024-11-29 09:39 | Day surgery (SDC) | payer MEDICAID, SELFPAY ==
[2024-08-04 14:44] VITALS: BMI 27.9
--- NOTE | 2024-11-29 10:18 | HO.ANESPROP2 ---
[facility] Active Problems Active Problems: All Active Problems Osteoarthritis of left acromioclavicular joint (Acute) Tendonitis of left rotator cuff (Acute) Biceps tendonitis on left (Acute) Syncope (Acute) Unsteady gait (Acute) S/P appendectomy (Acute) Past Medical History Medical History (Updated 11/04/24 @ 11:10 by Cristy Leiva PA-C) CVA (cerebral vascular accident) Hypertension Diabetes Surgical History Surgical History S/P appendectomy History of Problems with Anesthesia: Unobtainable Social History Social History (Updated 11/04/24 @ 10:49 by RACHELLE Viera) Household Members: Spouse Housing: Apartment Do you presently have visiting nurse or other home services: No Alcohol intake: former Patient Tobacco Use Status: Never used Tobacco e-Cigarette/Vaping Use: Never Used Advance Directives: No Advance Directives Information Provided: Yes Advance Directives Date on File: 08/15/22 service: No Current occupational status: unemployed Current occupation: rt handed Meds Allergies Allergy/AdvReac Type Severity Reaction Status Date / Time No Known Allergies Allergy Mild NONE Verified 11/29/24 10:19 Active Medications: Current Medications Sodium Biphosphate/Sodium Phosphate (Sodium Phosphate,[place]-Dibasic 133 Ml Enema) 133 ml NC ONCE PRN PRN Reason: Poor Colonoscopy Prep Results Home Medications ?Medication ?Instructions ?Recorded ?Confirmed ?Last Taken ?Type fluoxetine 20 mg capsule 1 cap PO QAM depressive disorder 12/07/22 11/04/24 12/06/22 History lisinopril 40 mg tablet 1 tab PO QAM 12/07/22 11/04/24 12/06/22 History amlodipine 10 mg-atorvastatin 40 1 tab PO QPM 08/04/24 11/04/24 Unknown History mg tablet cetirizine 10 mg tablet 10 mg PO QAM 08/04/24 11/04/24 Unknown History empagliflozin 25 mg tablet 25 mg PO QAM 08/04/24 11/29/24 11/26/24 History (Jardiance) metformin 500 mg tablet 1,000 mg PO BID 08/04/24 11/04/24 Unknown History pantoprazole 20 mg tablet,delayed 20 mg PO QAM 08/04/24 11/04/24 Unknown History release propranolol 10 mg tablet 10 - 20 mg PO NEEDED 08/04/24 11/04/24 Unknown History sitagliptin phosphate 100 mg 100 mg PO QAM 08/04/24 11/29/24 11/26/24 History tablet (Januvia) Exam Height,Weight and Vital Signs: Height 5 ft 11 in Weight 90.889 kg Assessment and Plan Final Anesthetic Review History of Problems with Anesthesia: Unobtainable
[2024-11-29 10:26] VITALS: BMI 28.5
[2024-11-29 10:46] VITALS: BP 153/95; PULSE 89; RESP 16; TEMP 37; O2SAT 99
[2024-11-29 10:56] LABS: Glucose, Whole Blood 143 mg/dL (60-115)
[2024-11-29 13:17] VITALS: BP 130/81; PULSE 86; RESP 18; TEMP 36.6; O2SAT 100
--- NOTE | 2024-11-29 13:19 | PM.OP ---
Brief Operative Note Date of Service: 11/29/24 Pre-op diagnosis: Screening Post-op diagnosis: other (Diverticulosis) Procedure: Colonoscopy to the cecum and TI Surgeon: Nestor Garcia MD Anesthesia: MAC Was an Equipment Operator Warehouse used for this Procedure?: No Estimated blood loss (mL): 0 Pathology: none sent Condition: stable Disposition: PACU
[2024-11-29 13:31] VITALS: BP 148/90; PULSE 75; RESP 16; O2SAT 100
[2024-11-29 13:47] VITALS: BP 134/95; PULSE 83; RESP 16; TEMP 36.4; O2SAT 96
--- NOTE | 2024-11-29 23:31 | OP_ITS ---
DATE OF SERVICE: 11/29/2024 SURGEON: Nestor Garcia MD INDICATIONS: The patient presents for evaluation of colorectal cancer screening. Full consent obtained from him for this, including risks of bleeding and perforation. PREOPERATIVE DIAGNOSIS: Colorectal cancer screening. POSTOPERATIVE DIAGNOSIS: Colorectal cancer screening, sigmoid diverticulosis and internal hemorrhoids. PROCEDURE PERFORMED: Colonoscopy to cecum and terminal ileum. ESTIMATED BLOOD LOSS: COMPLICATIONS: ANESTHESIA: Monitored anesthesia care. ASSISTANTS: SPECIMENS: DESCRIPTION OF PROCEDURE: The patient was placed in the left lateral decubitus position. The digital rectal exam revealed no abnormalities. The Olympus video pediatric colonoscope was entered into the rectum and advanced easily to the cecum. Once in the cecum, I did identify normal-appearing cecal pouch with appendiceal orifice and a normal-appearing ileocecal valve. The terminal ileum was cannulated and appeared normal. Scope withdrawn back in the colon. The entire cecum and ileocecal valve appeared normal. There was transillumination of light deep in the right lower quadrant. The scope was slowly withdrawn assessing all mucosal surfaces carefully. Preparation was excellent. I did not visualize any sign of polyps, colitis, nor angiodysplasia. There was a mild amount of sigmoid diverticulosis. In the rectum, scope was retroflexed visualizing internal hemorrhoids, but no other pathology. The rectal mucosa appeared normal. The scope was straightened and withdrawn from the patient. He tolerated the procedure well and was returned to the recovery area in stable condition. IMPRESSION: 1. Diverticulosis. 2. Internal hemorrhoids. PLAN: Given the negative exam and negative family history, I would recommend a followup colonoscopy in 10 years for further screening. He will otherwise see me on a p.r.n. basis. He was advised to resume his aspirin and usual diabetes regimen today. This has been discussed with his significant other. MD KARINA Rodrigues/ABELINO / [phone]
== END 2024-11-29 14:13 | disposition home or self-care (01) ==
PROVIDERS: PCP Registered Nurse; Visit Provider Internal Medicine
PROC: 0DJD8ZZ Inspection of Lower Intestinal Tract, Via Natural or Artificial Opening Endoscopic (ICD-10-PCS; CPT 45378; principal; 2024-11-29 11:20)
DX: Z12.11 Encounter for screening for malignant neoplasm of colon (principal); K57.30 Diverticulosis of large intestine without perforation or abscess without bleeding; K64.8 Other hemorrhoids; I10 Essential (primary) hypertension; E11.9 Type 2 diabetes mellitus without complications; I69.841 Monoplegia of lower limb following other cerebrovascular disease affecting right dominant side; Z79.84 Long term (current) use of oral hypoglycemic drugs; Z79.899 Other long term (current) drug therapy; Z79.82 Long term (current) use of aspirin; Z56.0 Unemployment, unspecified
CPT/HCPCS: 45378; 82947; J2250; J2704

== ENCOUNTER 2024-12-17 11:41 | Outpatient (RCR) | payer MEDICAID, SELFPAY ==
--- NOTE | 2024-11-19 13:23 | MHC.PT.EP ---
[facility] [place] Office [place] Office [place] Office [address] Tung Shen [address] [phone] F: [phone] F: [phone] F: [phone] F: [phone] Physical Therapy Plan of Care Date of Evaluation: 11/19/24 Date of Surgery: N/A Diagnosis: tendonitis of left rotator cuff (RL) Assessment: pt is a 49 y/o male presenting to physical therapy w/ referring diagnosis of tendonitis of left rotator cuff. pt presents w/ imaging consistent for moderate-advanced arthritis. D/t history of CVA pt does have cognitive and physical impairments that will limit his ability to progress in PT. Impairments include pain, decreased range of motion, decreased strength, impaired functional mobility, impaired postural awareness, and altered ambulation mechanics. pt is a fair candidate for skilled PT due to age, potential remediation of impairments, typical disease/condition progression and prognosis, comorbidities, and motivation. pt would benefit from skilled PT intervention to provide a tailored strengthening and stretching exercise program, functional training, gait training, postural re-training, neuromuscular re-education, modalities as needed for pain, equipment safety demonstration. Frequency and Duration: The patient will be seen 2x/wk for 3 wks Short Term Goals: pt will be set up w/ HEP to promote self-management of condition. pt will improve L shoulder flexion and ABD AROM by 10 degrees to promote ease in upper body ADLs. Decay Control Operator Goals: pt will report <6/10 pain w/ functional IR to promote ease in self-care (ie. toileting). Treatment Plan: Modalities to reduce pain, spasms and effusion. Manual therapy to restore motion and function. Therapeutic exercise to improve strength and flexibility. Neuromuscular re-education for posture and balance. Therapeutic activities to return to functional activities of daily living. Electronically signed by: Magdalena Gilliam PT, DPT Please sign and return to therapist. Thank you for your referral.
--- NOTE | 2024-12-31 10:42 | MHC.PT.DC ---
[facility] [place] Office [place] Office [place] Office [address] Tung Shen 140 [facility] [phone] F: [phone] F: [phone] F: [phone] F: [phone] Physical Therapy Discharge Report Diagnosis: tendonitis of left rotator cuff (RL) Date of Surgery: N/A Date of Evaluation: 11/19/24 Date of Discharge: 12/31/24 Treatments to Date: 7 Cancellations to Date: 0 No Shows to Date: 0 Discharge Status: Improved Function Independent with HEP Discharge Summary: pt overall has made significant improvement in his shoulder pain and postural awareness of his upper body. D/C to HEP at this time. Electronically signed by: Magdalena Gilliam PT, DPT Please sign and return to therapist. Thank you for your referral.
== END 2024-12-31 10:43 | disposition home or self-care (01) ==
LOC: HO.PT 11:41
PROVIDERS: PCP Registered Nurse; Visit Provider Physician Assistant
DX: M75.22 Bicipital tendinitis, left shoulder (principal); M75.82 Other shoulder lesions, left shoulder; M19.012 Primary osteoarthritis, left shoulder
CPT/HCPCS: 97110; 97140; 97162

== ENCOUNTER 2025-03-21 07:52 | Outpatient (AMB) | payer MEDICAID, SELFPAY ==
--- OUTSIDE RECORDS SUMMARY | 2025-03-21 07:55 | XMS_ITS | Encounter Summary ---
Author Organization [employer] Address [address] [place] [address] [address] [place] [address] Care Team Providers Care Scaffold Worker Name Role Phone Pam Avilez PRISCA Primary Care Provider [phone] Dionisio James DPM Unavailable [phone] Reason for Visit * Reason Comments Med Refill Encounter Details Date Type Department Care Team (Late st Contact Info) Description 06/04/2023 Refill [facility] ADULT DENTAL [address] [place] [address] Trino Parker DDS [address] [place], [place] [phone] Pain, dental Social History Tobacco Use Types Packs/Day Years Used Date Smoking Tobacco: Never Passive Smoke Exposure: Never Smokeless Tobacco: Never Alcohol Use Standard Drinks/Week Comments Never 0 (1 standard drink = 0.6 oz pur e alcohol) Depression Answer Date Recorded Patient Health Questionnaire-9 Score 0 05/06/2023 Depression Answer Date Recorded Patient Health Questionnaire-2 Score 0 05/06/2023 Sex and Gender Information Value Date Recorded Sex Assigned at Male 08/05/2022 10:15 AM EDT Legal Sex Male 10:15 AM EDT Gender Identity Male 11/04/2022 8:40 PM EST Sexual Orientation Choose not to disclose 2021 10:15 AM EDT documented as of this encounter Miscellaneous Notes * Telephone Encounter - Trino Parker DDS - 06/04/2023 8:48 AM EDT Approving, but needs appt for additional refills. documented in this encounter Plan of Treatment Upcoming Encounters Date Type Department Care Team (Late st Contact Info) Description 06/20/2025 3:15 PM EDT Office Visit [facility] [address] [place] [address] Pam Avilez FNP [address] [place] [address] documented as of this encounter Visit Diagnoses Diagnosis Pain, dental documented in this encounter Additional Health Concerns Assessment Noted Time PHQ-9 Depression Total Score: 0 05/06/20 2:06 PM EDT documented as of this encounter Care Teams Scaffold Worker Relationship Specialty Start Date End Date Pam Avilez FNP [address] [place] [address] PCP - General Family Medicine 08/28/22 Dionisio James DPM [address] [place] [address] Podiatry 10/08/24 documented as of this encounter
--- NOTE | 2025-03-21 08:32 | A.OFFVIS_ITS ---
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 Dairy Farm Supervisor Required: No Dairy Farm Supervisor Services: Dairy Farm Supervisor Offered & Declined Dairy Farm Supervisor Name: raghu/lao Accompanied by: Self / Same As Patient Allergies No Known Allergies Allergy (Mild, Verified 11/29/24 10:19) NONE Medication List - Last Reconciled 03/21/25 by Carloz Valentino MD amlodipine-atorvastatin 10-40 mg 1 tab PO QPM aspirin 81 mg PO DAILY celecoxib 200 mg PO BID cetirizine 10 mg PO QAM empagliflozin (Jardiance) 25 mg PO QAM fluoxetine 20 mg PO QAM lisinopril 40 mg PO QAM metformin 1,000 mg PO BID miscellaneous medical supply As directed pantoprazole 20 mg PO QAM propranolol 10 - 20 mg PO NEEDED sitagliptin phosphate (Januvia) 100 mg PO QAM walker As directed walker Rolling walker with wheels, use as directed HPI Comments Details: The patient is a 50-year-old male presenting with chest pain and shortness of breath. The chest pain occurs during mental stress and is absent during physical activities. It is left-sided. Shortness of breath occurs when supine, not exertion-related, and correlates with obstructive sleep apnea. A sleep study was repeated recently, awaiting results. Past stroke due to past antihypertensive noncompliance, now managed. He also has diabetes mellitus on appropriate medications. History of blindness in the left eye, has been present for many years. Unclear etiology. No previously diagnosed coronary disease or myocardial infarction or cardiomyopathy. There is also history of obstructive sleep apnea per family and there is ongoing workup for the same. Apparently, there is some issue with the mask. In a prior sleep study from 2023, described to have severe obstructive sleep apnea. [facility] Medical History (Updated 03/21/25 @ 08:57 by Carloz Valentino MD) Hypertension Diabetes CVA (cerebral vascular accident) Surgical History S/P appendectomy Family History (Updated 03/21/25 @ 08:35 by Keara Man CMA) Mother No problems noted. Social History Household Members: Spouse Housing: Apartment Are you a primary acute care assistant to a significant other at home: No Do you presently have visiting nurse or other home services: No Alcohol intake: former Patient Tobacco Use Status: Never used Tobacco e-Cigarette/Vaping Use: Never Used Advance Directives Date on File: 08/09/22 service: No Current occupational status: unemployed Current occupation: rt handed Review of Systems Const Denies chills, Denies fatigue, Denies fever(s), Denies frequent falls, Denies weakness, Denies weight gain and Denies weight loss ENT Denies dizziness Card Reports chest pain, Reports chest pain at rest, Denies leg edema, Denies lightheadedness, Denies palpitations, Denies dyspnea, Reports dyspnea on exertion and Denies orthopnea Resp Denies cough, Denies dyspnea and Reports dyspnea on exertion GI Denies bloating and Denies change in bowel habits Musc Denies muscle weakness, Denies numbness and Denies tingling Neuro Denies dizziness, Denies frequent falls, Denies numbness, Denies tingling and Denies weakness Endo Denies fatigue and Denies palpitations Physical Exam Vital Signs: Last Vital Signs Pulse 82 03/21/25 08:33 BP 120/80 03/21/25 08:33 BMI result Body Mass Index 24.4 Const General: comfortable and no acute distress Orientation/consciousness: patient oriented x3 HEENT Other: Unremarkable Head: Yes normal to inspection Neck Neck: Yes normal visual inspection Chest Chest palpation & inspection: normal inspection of the chest Resp Auscultation: clear to auscultation bilaterally Cardio Palpation: normal PMI Heart sounds: S1 normal heart sound present, S2 normal heart sound present, no gallops, no murmurs and no rubs GI Palpation (GI): Soft to palpation Back/Spine/Pelvis Other: unremarkable Skin General skin exam: no rashes or lesions noted Neuro General: patient oriented x3 Extrem General: Yes normal to inspection Psych Mental Status: mental status grossly normal Office Procedures EKG Details: EKG with underlying sinus rhythm at 82/Min; rightward axis; incomplete right bundle-branch block pattern; [place] [id number], Complete Assessment & Plan Assessment & Plan (1) Precordial chest pain: Code(s): R07.2 - Precordial pain Category: Medical (2) Shortness of breath: Code(s): R06.02 - Shortness of breath Category: Medical (3) Hypertension: Code(s): I10 - Essential (primary) hypertension Category: Medical (4) Diabetes: Comment: taking Jardiance, Januvia, Metformin Code(s): E11.9 - Type 2 diabetes mellitus without complications Category: Medical Plan Atypical sounding chest pain as well as shortness of breath in patient with multiple cardiovascular risk factors including diabetes, hypertension, history of stroke. We will plan on echocardiogram and coronary CTA for further evaluation. Based on the findings, we will plan further care. In prior echocardiogram from 2021-LVEF 50-55%. Mild aortic valve calcification. Ascending aorta mildly dilated at 4 cm. Orders: Orders CT Cardiac Coronary Angio Today I25.10 - Atherosclerotic heart disease of [place] coronary artery without angina pectoris, R07.2 - Precordial pain CA echo transthoracic complete Today I25.10 - Atherosclerotic heart disease of [place] coronary artery without angina pectoris, R07.2 - Precordial pain Basic Metabolic Panel Today R07.2 - Precordial pain Coding Level of Care Code New Pt Level 4 (85138) Complex EM visit Add On G2211 Diagnoses Precordial chest pain R07.2 Shortness of breath R06.02 Hypertension I10 Diabetes E11.9 CPT Codes EKG - CPT: 00406-[id number], Complete ([id number])
[2025-03-21 08:33] VITALS: BP 120/80; PULSE 82; BMI 24.4
== END 2025-03-21 09:00 | disposition home or self-care (01) ==
LOC: HO.HCS 07:52
PROVIDERS: PCP Registered Nurse; Visit Provider Internal Medicine
DX: R07.2 Precordial pain (principal); R06.02 Shortness of breath; I10 Essential (primary) hypertension; E11.8 Type 2 diabetes mellitus with unspecified complications; R94.31 Abnormal electrocardiogram [ECG] [EKG]
CPT/HCPCS: 93010; 99204

== ENCOUNTER → 2025-03-21 07:52 | Outpatient (BNVA) | payer MEDICAID, SELFPAY | PROVIDERS: PCP Registered Nurse; Visit Provider Internal Medicine | DX: R06.02 Shortness of breath (principal); I25.10 Atherosclerotic heart disease of native coronary artery without angina pectoris; R07.2 Precordial pain | CPT/HCPCS: 93005; 99202 ==

== ENCOUNTER 2025-04-05 10:35 | Outpatient (REF) | payer MEDICAID, SELFPAY ==
--- OUTSIDE RECORDS SUMMARY | 2025-04-05 11:49 | XMS_ITS | Encounter Summary ---
Author Organization [employer] Address [address] [place] [address] [address] [place] [address] Care Team Providers Care Licensed Nurse Practitioner Name Role Phone Pam Avilez PRISCA Primary Care Provider [phone] Dionisio James DPM Unavailable [phone] Reason for Visit * Reason Comments Med Refill Encounter Details Date Type Department Care Team (Late st Contact Info) Description 06/04/2023 Refill [facility] ADULT DENTAL [address] [place] [address] Trino Parker DDS [address] [place], [place] [phone] Pain, dental Social History Tobacco Use Types [...] Description 06/20/2025 3:15 PM EDT Office Visit [facility] [address] [place] [address] Pam Avilez FNP [address] [place] [address] documented as of this encounter Visit Diagnoses Diagnosis Pain, dental documented in this encounter Additional Health Concerns Assessment Noted Time PHQ-9 Depression Total Score: 0 05/06/20 2:06 PM EDT documented as of this encounter Care Teams Licensed Nurse Practitioner Relationship Specialty Start Date End Date Pam Avilez FNP [address] [place] [address] PCP - General Family Medicine 08/28/22 Dionisio James DPM [address] [place] [address] Podiatry 10/08/24 documented as of this encounter
--- OUTSIDE RECORDS SUMMARY | 2025-04-05 11:49 | XMS_ITS | Patient Health Record ---
Author Organization [facility] Address [address] [place] [address] Care Team Providers Care Beer Cooler Name Role Phone PALOMO BERG MD Primary Care Provider Nestor Kim Unavailable [phone] Allergies No Known Allergies Results Component Value Reference Range Notes Glucose, Whole Blood Reviewed date:11/29/2024 05:20:43 PM Interpretation: Performing Lab:[facility], [address] [place] [id number] Notes/Report: Glucose, Whole Blood 143 60-115 mg/dL METER # : [id number] Reason For Referral Referring Provider First Name PALOMO Referring Provider Last Name MORENA Referred Organization [facility] Referred Provider Nestor Garcia Referred Address [address] [facility],[place] [address] [place] [phone], Referred Provider Specialty Gastroentero logy General Notes Oneyda Gross 2024 04:24:55 PM >requested a [facility] referral from [facility] for visit with Dr. Garcia on [phone] Referral Priority Routine Medications Medication SIG (Take, Route, Frequency, Duration) Notes Start Date End Date Status Pantoprazole Sodium 20 MG TAKE 1 TABLET BY MOUTH EVERY MORNING Oral for 90 prn Active Lisinopril 40 MG TAKE 1 TABLET BY MOUTH EVERY MORNING Oral for 90 I10,Unavailable Active Jardiance 25 MG TAKE 1 TABLET BY MOUTH EVERY MORNING Oral for 30 Active Fluoxetine Active Cetirizine HCl 10 MG TAKE 1 TABLET BY MOUTH EVERY DAY IN THE MORNING Oral for 90 prn Active Januvia 100 MG TAKE 1 TABLET BY MOUTH EVERY MORNING Oral for 30 Active metFORMIN HCl 1000 MG TAKE 1 TABLET BY MOUTH TWICE DAILY IN THE MORNING AND IN THE EVENING WITH MEALS Oral for 90 E119,Unavailabl e Active Aspirin Low Dose 81 MG TAKE 1 TABLET BY MOUTH EVERY MORNING (masticar) Oral for 90 I639,Unavailabl e Active Immunizations Vaccine Route Administration Date Status Comme nts Influenza Unknown 08/26/2023 Administered Social History Tobacco Use: Social History Observation Description Date Details (start date - stop date) Never Smoker NA - NA Tobacco Use/Smoking Question Answer Notes Patient is a nonsmoker Alcohol Screen Question Answer Notes Did you have a drink containing alcohol in the p ast year? No Points 0 Interpretation Negative Section Notes: Nonsmoker; no alcohol Nonsmoker; no alcohol Problems Problem Type SNOMED Code ICD Code Onset Dates Problem Status W/U Status Risk Notes Problem Colon cancer screening (633837085) Colon cancer screening (Z12.11) Active confirmed Problem Pre-procedure evaluation check (050464080) Encounter for other preprocedural examination (Z01.818) Active confirmed Problem Long-term current use of aspirin (613208905119708 ) Aspirin long-term use (Z79.82) Active confirmed Problem Hepatomegaly (62143168) Hepatomegaly (R16.0) Active confirmed Problem Abnormal findings diagnostic imaging of liver and biliary tract (835933876) Abnormal liver ultrasound (R93.2) Active confirmed Vital Signs Temperature 97.8 degrees Fahrenheit 04/07/2024 Blood pressure diastolic 77 mm Hg 04/05/2025 Height 71 in 04/05/2025 Blood pressure systolic 111 mm Hg 04/05/2025 Weight 210 lbs 04/05/2025 BMI 29.29 kg/m2 04/05/2025 Encounters Encounter Location Date Provider Diagnosis [facility] [place] [address] [place], [place] [phone] 11/29/2024 Nestor Garcia Colon cancer screeni ng Z12.11 ; Diverticulosis of large intestine without perforation or abscess without bleeding K57.30 and Other hemorrhoids K64.8 [facility] [address] [place] [phone] 04/05/2025 Nestor Garcia Hepatomegaly R16.0 ; Abnormal liver ultrasound R93.2 and Colon cancer screening Z12.11 [facility] [address] [place] [phone] 04/07/2024 Nestor Garcia Colon cancer screeni ng Z12.11 ; Encounter for other preprocedural examination Z01.818 and Aspirin long-term use Z79.82 [facility] [address] [place] [address] 04/07/[address] [facility] [address] [place] [address] 08/05/2024 Nestor Radha Assessments Encounter Date Diagnosis (ICD Code) Assessment Notes Treatment Notes Treatment Clinical Notes Section Notes 11/29/2024 Colon cancer screening (ICD-10 - Z12.11) 11/29/2024 Diverticulosis of large intestine without perforation or abscess without bleeding (ICD-10 - K57.30) 04/05/2025 Hepatomegaly (ICD-10 - R16.0) For the liver: Avoid alcohol, keep the diabetes well controlled Follow liver tests once a year 04/05/2025 Abnormal liver ultrasound (ICD-10 - R93.2) 04/07/2024 Colon cancer screening (ICD-10 - Z12.11) DO NOT TAKE THE JARDIANCE AND JANUVIA FOR THREE DAYS BEFORE THE COLONOSCOPY DO NOT TAKE THE METFORMIN THE NIGHT BEFORE OR ON THE DAY OF THE COLONOSOCPY DO NOT TAKE ASPIRIN ON THE MORNING OF THE COLONOSCOPY Overall, Michael appears well. He is not having any new or worrisome GI complaints. I did recommend a colonoscopy for screening purposes. We did review the rationale for that in regard to colon cancer prevention. Full consent was obtained for this, including risks of bleeding and perforation. The procedure will be done with monitored anesthesia care. He was given the below instructions regarding adjustment of his diabetes medication and aspirin prior to the procedure. Michael and Polly were comfortable with this plan. Thank you again for allowing me to participate in Michael's care. I shall continue to keep you advised of his progress. 04/07/2024 Encounter for other preprocedural examination (ICD-10 - Z01.818) Overall, Michael appears well. He is not having any new or worrisome GI complaints. I did recommend a colonoscopy for screening purposes. We did review the rationale for that in regard to colon cancer prevention. Full consent was obtained for this, including risks of bleeding and perforation. The procedure will be done with monitored anesthesia care. He was given the below instructions regarding adjustment of his diabetes medication and aspirin prior to the procedure. Michael and Polly were comfortable with this plan. Thank you again for allowing me to participate in Michael's care. I shall continue to keep you advised of his progress. 11/29/2024 Other hemorrhoids (ICD-10 - K64.8) 04/05/2025 Colon cancer screening (ICD-10 - Z12.11) Repeat colonoscopy in 203404/07/2024 Aspirin long-term use (ICD-10 - Z79.82) Overall, Michael appears well. He is not having any new or worrisome GI complaints. I did recommend a colonoscopy for screening purposes. We did review the rationale for that in regard to colon cancer prevention. Full consent was obtained for this, including risks of bleeding and perforation. The procedure will be done with monitored anesthesia care. He was given the below instructions regarding adjustment of his diabetes medication and aspirin prior to the procedure. Michael and Polly were comfortable with this plan. Thank you again for allowing me to participate in Michael's care. I shall continue to keep you advised of his progress. Plan Of Treatment Pending Test Test Name Order Date LIVER PROFILE 04/05/2025 IRON + IBC (FE) 04/05/2025 CBC w DIFF 04/05/2025 Prothrombin Time INR 04/05/2025 Ferritin 04/05/2025 Liver Fibrosis Pnl 04/05/2025 Future Test Test Name Order Date COLONOSCOPY 04/07/2024 Insurance Providers Payer Name Payer Address Payer Phone Subscriber Number Group Number Insured Name Patient Relationship to Insured Coverage Start Date Coverage End Date MEDICAID OF [facility] [address] [place] [phone] [id number] MICHAEL CARD Self - patient is the insured Medical (General) History Medical History History ICD Code 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
[2025-04-05 13:24] LABS: MANUAL DIFF FLAG NO
[2025-04-05 13:31] LABS: Hematocrit 43.3 % (42.0-52.0); Hemoglobin 14.2 g/dl (14.0-18.0); Imm Gran Abs Auto 0.02 X10*3/uL (0.00-0.03); Imm Gran Pct Auto 0.3 % (0.0-0.4); Lymphocytes Absolute Auto 1.4 X10*3/uL (1.2-4.9); Mean Corpuscular HGB Conc 32.8 g/dl (31.0-36.0); Mean Corpuscular Hemoglobin 30.4 pg (27.0-33.0); Mean Corpuscular Volume 92.7 fL (80.0-98.0); NRBC Abs Auto 0.000 X10*3/uL (0.0-0.012); NRBC Pct Auto 0.0 /100WBC (0.0-0.2); Platelet Count 149 X10*3/uL (160-400); Red Blood Count 4.67 X10*6/uL (4.60-5.80); White Blood Count 6.0 X10*3/uL (4.8-10.8)
[2025-04-05 13:35] LABS: INTERNATIONAL NORM RATIO 1.0 (0.9-1.1); Prothrombin Time 11.7 SEC (10.9-12.4)
[2025-04-05 14:12] LABS: Alanine Aminotransferase 30 U/L (0-40); Albumin Level 4.6 g/dL (3.5-5.0); Alkaline Phosphatase 36 U/L (39-117); Anion Gap 11 (12-20); Aspartate Amino Transferase 30 U/L (5-37); Blood Urea Nitrogen 14 mg/dL (9-16); Calcium 9.1 mg/dL (8.4-10.2); Carbon Dioxide 27 mmol/L (22-29); Chloride 105 mmol/L (96-108); Estimated Glomerular Filt Rate > 60; Ferritin 102 ng/mL (20-250); Iron 78 mcg/dL (45-160); Percent Iron Saturation 29 % (15-50); Potassium 4.1 mmol/L (3.3-5.1); Sodium 139 mmol/L (135-145); Total Iron Binding Capacity 269 mcg/dL (228-428); Total Protein 6.6 g/dL (6.5-8.0); Unsaturated Iron Binding 191 ug/dL
[2025-04-15 17:48] LABS: FIB-ALT 19 U/L (9-46); FIB-Alpha-2-Macroglobulin 166 mg/dL (106-279); FIB-Apolipoprotein A1 145 mg/dL (94-176); FIB-GGT 12 U/L (3-95); FIB-Haptoglobin 77 mg/dL (43-212); FIB-Total Bilirubin 0.5 mg/dL (0.2-1.2); Liver Fibrosis Score 0.16; Liver Fibrosis Stage F0; Nec Inflam Act Grade A0; Nec Inflam Act Score 0.06
== END 2025-04-05 10:36 | disposition home or self-care (01) ==
LOC: HO.10HDL 10:35
PROVIDERS: Internal Medicine; Visit Provider Internal Medicine
DX: R07.2 Precordial pain (principal); R16.0 Hepatomegaly, not elsewhere classified; R93.2 Abnormal findings on diagnostic imaging of liver and biliary tract
CPT/HCPCS: 36415; 80048; 80076; 81596; 82728; 83540; 85025; 85610

== ENCOUNTER → 2025-04-20 09:38 | Outpatient (REF) | payer MEDICAID, SELFPAY ==
--- NOTE | 2025-04-20 09:41 | CA_ITS ---
Transthoracic Echocardiogram Patient (Last, First, Middle): Daniel Rodriguez L Gender: Male Date of : 1975 Age: 50 Procedure Date: 04/20/2025 Procedure Type: Transthoracic Echocardiogram Location: OP Height: 180.34 cm Weight: 108.86 kg BSA: 2.28 m2 Heart Rate: bpm BP: 135 / 80 mmHg Glass Wool Blanket Machine Feeder: MAUDE Referring MD: Carloz Valentino MD Symptoms: I25.10 - Atherosclerotic heart disease of [place] coronary artery without... Study Quality: Adequate ECG Rhythm: Sinus Conclusions: - The left ventricular systolic function is low normal. The calculated ejection fraction is 52% by biplane method. - Possible basal inferior hypokinesis. - There is mild calcification of the aortic valve. - There is mild dilatation of the ascending aorta measuring 4.00 cm. Findings Left Ventricle Normal left ventricular cavity size. There is normal left ventricular wall thickness. The left ventricular systolic function is low normal. The calculated ejection fraction is 52% by biplane method. There is no evidence of regional wall motion abnormalities. Diastolic function is normal for age. Possible basal inferior hypokinesis. Right Ventricle Mildly increased right ventricular cavity size. There is normal right ventricular systolic function. Atria Both atria are normal in size. Aortic Valve There is mild calcification of the aortic valve. There is no aortic valve stenosis. There is no aortic valve regurgitation. Mitral Valve The mitral valve appears normal. There is no mitral valve regurgitation. There is no mitral valve stenosis. Pulmonic Valve There is trace pulmonic valve regurgitation. Tricuspid Valve There is trace tricuspid valve regurgitation. There is no evidence of pulmonary hypertension. Great Vessels There is mild dilatation of the ascending aorta measuring 4.00 cm. Venous The inferior vena cava is normal in size and collapses greater than 50% with inspiration. Pericardium/Pleural There is no evidence of pericardial effusion. Prior Study Comparison No significant change compared to prior study dated: 08/09/2022. Measurements 2D Linear Measurements IVSd: 0.99 0.6-0.9/0.6-1.0 cm LVIDd: 5.78 3.9-5.3/4.2-5.9 cm LVIDd Index: 2.54 2.4-3.2/2.2-3.1 cm/m2 LVIDs: 3.59 2.0-3.6 cm LVPWd: 0.91 0.7-1.1 cm LA Diam: 3.80 2.7-3.8/3.0-4.0 cm LAIDs Index: 1.67 1.5-2.3 cm/m2 LV Mass: 271.38 67-162/88-224 g LV Mass Index: 119.03 43-95/49-115 g/m2 LVOT Diam: 2.60 3.0+(-)1.3 cm 2D Systolic Function EF 4C: 53.40 >55% EF 2C: 56.20 >55% EF BiP: 52.00 >55% Mitral Valve MV Pk E: 0.77 MV PK A: 0.64 MV Decel Time: 183.00 E/A: 1.20 E'Lateral: 10.10 E'Medial: 8.05 E/E' Med: 9.50 E/E' Lat: 7.60 PHT: 53.00 MVA PHT: 4.15 Decel [place]: 4.20 Aortic Valve AoV Pk Ike: 1.25 AoV Mn Ike: 0.94 AoV VTI: 0.26 AoV Pk Grad: 6.00 Aov Mn Grad: 4.00 SIDDHARTHA Cont.VTI: 3.57 LVOT LVOT Pk Ike: 0.84 LVOT Mn Ike: 0.55 LVOT VTI: 0.18 LVOT Pk Grad: 3.00 LVOT Mn Grad: 1.00 LVOT Diam: 2.60 LVOT Area: 5.31 Diastolic Function MV Pk E: 0.77 MV Pk A: 0.64 E/A: 1.20 E'Medial: 8.05 E/E' Med: 9.50 E' Laterial: 10.10 E/E' Lat: 7.60 Right Ventricle TAPSE (mm): 23.80 TVS' Ike: 14.00 Tricuspid Valve RA Press: 3.00 Great Vessels Aorta Sinus of Valsalva: 3.73 2.0-3.5 cm Ao Asc: 4.00 2.1-3.4 cm Updated in Other Vendor System with Status of Final Carloz Valentino MD electronically signed on 04/22/2025 11:03:08 AM with status of Final
--- OUTSIDE RECORDS SUMMARY | 2025-04-20 10:13 | XMS_ITS | Patient Health Record ---
Author Organization [facility] Address [address] [place] [address] Care Team Providers Care Gamma Facilities Operator Name Role Phone PALOMO BERG MD Primary Care Provider Nestor Kim Unavailable [phone] Allergies No Known Allergies Results Component Value Reference Range Notes Glucose, Whole Blood Reviewed date:11/29/2024 05:20:43 PM Interpretation: Performing Lab:[facility], [address] [place] [phone] Notes/Report: Glucose, Whole Blood 143 60-115 mg/dL METER # : [id number] Reason For Referral Referring Provider First Name PALOMO Referring Provider Last Name MORENA Referred Organization [facility] Referred Provider Nestor Garcia Referred Address [address] [facility],[place] [address] [place] [phone], Referred Provider Specialty Gastroentero logy General Notes Oneyda Gross 2024 04:24:55 PM >requested a [facility] referral from [facility] for visit with Dr. Garcia on [phone] Referral Priority Routine Medications Medication SIG (Take, [...] Status Risk Notes Problem Colon cancer screening (711344734) Colon cancer screening (Z12.11) Active confirmed Problem Pre-procedure evaluation check (835546684) Encounter for other preprocedural examination (Z01.818) Active confirmed Problem Long-term current use of aspirin (287641368897976 ) Aspirin long-term use (Z79.82) Active confirmed Problem Hepatomegaly (16556124) Hepatomegaly (R16.0) Active confirmed Problem Abnormal findings diagnostic imaging of liver and biliary tract (397092248) Abnormal liver ultrasound (R93.2) Active confirmed Vital Signs Blood pressure diastolic 77 mm Hg 04/05/2025 Height 71 in 04/05/2025 Blood pressure systolic 111 mm Hg 04/05/2025 Weight 210 lbs 04/05/2025 BMI 29.29 kg/m2 04/05/2025 Encounters Encounter Location Date Provider [place] [facility] [place] [address] [place] [phone] 11/29/2024 Nestor Garcia Colon cancer screeni ng Z12.11 ; Diverticulosis of large intestine without perforation or abscess without bleeding K57.30 and Other hemorrhoids K64.8 [facility] [address] [place] [phone] 04/05/2025 Nestor Garcia Hepatomegaly R16.0 ; Abnormal liver ultrasound R93.2 and Colon cancer screening Z12.11 [facility] [address] [place] [phone] 08/05/2024 Nestor Garcia Assessments Encounter Date Diagnosis (ICD Code) Assessment [...] 04/05/2025 Abnormal liver ultrasound (ICD-10 - R93.2) 11/29/2024 Other hemorrhoids (ICD-10 - K64.8) 04/05/2025 Colon cancer screening (ICD-10 - Z12.11) Repeat colonoscopy in 2034 Plan Of Treatment Pending Test Test Name [...] Start Date Coverage End Date [facility] [address] [place] [address] [id number] MICHAEL CARD Self - patient is the insured Medical (General) History Medical History History ICD Code 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
--- OUTSIDE RECORDS SUMMARY | 2025-04-20 10:13 | XMS_ITS | Encounter Summary ---
Author Organization [facility] Address [address] [place] [address] [address] [place] [address] Care Team Providers Care Prop And Scenery Maker Name Role Phone Pam Avilez PRISCA Primary Care Provider [phone] Dionisio James DPM Unavailable [phone] Reason for Visit * Reason Comments Med Refill Encounter Details Date Type Department Care Team (Late st Contact Info) Description 06/04/2023 Refill [facility] [address] [place] [address] Trino Parker DDS [address] [place], [place] [phone] Pain, dental Social History Tobacco Use Types [...] Description 06/20/2025 3:15 PM EDT Office Visit [facility] [address] [place] [address] Pam Avilez FNP [address] [place] [address] documented as of this encounter Visit Diagnoses Diagnosis Pain, dental documented in this encounter Additional Health Concerns Assessment Noted Time PHQ-9 Depression Total Score: 0 05/06/20 2:06 PM EDT documented as of this encounter Care Teams Prop And Scenery Maker Relationship Specialty Start Date End Date Pam Avilez FNP [address] [place] [id number] PCP - General Family Medicine 08/28/22 Dionisio James DPM [address] [place] [address] Podiatry 10/08/24 documented as of this encounter
== END ==
LOC: HO.CARD 09:38
PROVIDERS: PCP Registered Nurse; Visit Provider Internal Medicine
DX: I25.10 Atherosclerotic heart disease of native coronary artery without angina pectoris (principal); R07.2 Precordial pain
CPT/HCPCS: 93306

== ENCOUNTER → 2025-04-20 09:41 | Outpatient (BNV) | payer MEDICAID, SELFPAY | PROVIDERS: PCP Registered Nurse; Visit Provider Internal Medicine | DX: I35.8 Other nonrheumatic aortic valve disorders (principal); I25.10 Atherosclerotic heart disease of native coronary artery without angina pectoris | CPT/HCPCS: 93306 ==

== ENCOUNTER 2025-05-24 06:36 | Outpatient (REF) | payer MEDICAID, SELFPAY ==
--- OUTSIDE RECORDS SUMMARY | 2025-05-24 06:38 | XMS_ITS | Encounter Summary ---
Author Organization [employer] [facility] [employer] [facility] Address [address] [place] [address] [address] [place] [address] Care Team Providers Care Review Trainer Name Role Phone Pam Avilez PRISCA Primary Care Provider [phone] Dionisio James DPM Unavailable [phone] Reason for Visit * Reason Comments Med Refill Encounter Details Date Type Department Care Team (Late st Contact Info) Description 06/04/2023 Refill [facility] [address] [place] [address] Trino Parker DDS [address] [place], [place] [phone] Pain, dental Social History Tobacco Use Types [...] Description 06/20/2025 3:15 PM EDT Office Visit [facility] [address] [place], [place] [phone] Pam Avilez FNP [address] [place] [address] 09/14/2025 11:00 AM EST Office Visit [facility] [address] [place] [address] [place], [place], OD [address] [place] [address] documented as of this encounter Visit Diagnoses Diagnosis Pain, dental documented in this encounter Additional Health Concerns Assessment Noted Time PHQ-9 Depression Total Score: 0 05/06/20 23 2:06 PM EDT documented as of this encounter Care Teams Review Trainer Relationship Specialty Start Date End Date Pam Avilez FNP [address] [place] [address] PCP - General Family Medicine 08/28/22 Dionisio James DPM [address] [place] [address] Podiatry 10/08/24 documented as of this encounter
--- OUTSIDE RECORDS SUMMARY | 2025-05-24 06:38 | XMS_ITS | Patient Health Record ---
Author Organization [facility] Address [address] [place] [address] Care Team Providers Care Film Inspector Name Role Phone PALOMO BERG MD Primary Care Provider Nestor Kim Unavailable [phone] Allergies No Known Allergies Results Component Value Reference Range Notes Glucose, Whole Blood Reviewed date:11/29/2024 05:20:43 PM Interpretation: Performing Lab:, [address] [place] [phone] Notes/Report: Glucose, Whole Blood 143 60-115 mg/dL METER # : [id number] Reason For Referral Referring Provider First Name PALOMO Referring Provider Last Name MORENA Referred Organization [facility] Referred Provider Nestor Garcia Referred Address [address] [facility] [facility] [address] [place] [phone], Referred Provider Specialty Gastroentero logy General Notes Oneyda Gross 2024 04:24:55 PM >requested a [facility] referral from [facility] for visit with Dr. Garcia on [phone] Referral Priority Routine Medications Medication SIG (Take, [...] Status Risk Notes Problem Colon cancer screening (528519362) Colon cancer screening (Z12.11) Active confirmed Problem Pre-procedure evaluation check (222851233) Encounter for other preprocedural examination (Z01.818) Active confirmed Problem Long-term current use of aspirin (418851136223058 ) Aspirin long-term use (Z79.82) Active confirmed Problem Hepatomegaly (16002912) Hepatomegaly (R16.0) Active confirmed Problem Abnormal liver ultrasound (R93.2) Active confirmed Vital Signs Blood pressure diastolic 77 mm Hg 04/05/2025 Height 71 in 04/05/2025 Blood pressure systolic 111 mm Hg 04/05/2025 Weight 210 lbs 04/05/2025 BMI 29.29 kg/m2 04/05/2025 Encounters Encounter Location Date Provider Diagnosis [facility] Outpatient [address] [place] [id number] 11/29/2024 Nestor Garcia Colon cancer screeni ng Z12.11 ; Diverticulosis of large intestine without perforation or abscess without bleeding K57.30 and Other hemorrhoids K64.8 [facility] [address] [place] [phone] 04/05/2025 Nestor Garcia Hepatomegaly R16.0 ; Abnormal liver ultrasound R93.2 and Colon cancer screening Z12.11 [facility] [address] [place] [phone] 08/05/2024 Nestor Garcia Assessments Encounter Date Diagnosis (ICD Code) Assessment Notes Treatment Notes Treatment Clinical Notes Section Notes 11/29/2024 Colon cancer screening (ICD-10 - Z12.11) 11/29/2024 Diverticulosis of large intestine without perforation or abscess without bleeding (ICD-10 - K57.30) 04/05/2025 Hepatomegaly (ICD-10 - R16.0) For the liver: Avoid alcohol, keep the diabetes well controlled Follow liver tests once a year Overall, Michael appears well. He does not have any symptoms nor show any signs of chronic liver disease. We did review the ultrasound findings are probably in relation to his previous longstanding alcohol use but fortunately he has now been abstinent for 2 years. He does not show any signs of liver dysfunction on his laboratories. There is no splenomegaly on the ultrasound although he may have some slight underlying hypersplenism in relation to some underlying liver disease causing the mild thrombocytopenia . At this point I advised him the best way to treat this liver issue in regard to the hepatomegaly and some finding of underlying liver disease would be to continue to remain completely abstinent from alcohol long-term, watching his diet and weight carefully, and keeping his diabetes as well-controlled as possible. I shall check laboratories to rule out any issue with iron overload. I will also check a liver fibrosis score and PT with INR. I do not think he needs any further imaging studies or a liver biopsy. I did advise him that as long as his LFTs remain stable and he does not show any signs of progressive liver disease he would not need any particular follow-up on my part in this regard. I would recommend that you follow a liver profile every 6 months or so and closely monitor his risk factors for fatty liver disease in regard to the diabetes. We did review his negative screening colonoscopy earlier this year and the need for a follow-up colonoscopy in 2034 for for further screening purposes. If things remain stable he will otherwise see me on an as-needed basis. He should be referred back to me if his LFTs begin to rise greater than 2-3 times normal. Michael and his were comfortable with this plan. Thank you again for allowing me to have participated in Michael's care. Please do not hesitate to contact me if I can be of any further assistance in regard to the underlying hepatomegaly or any other issues. 04/05/2025 Abnormal liver ultrasound (ICD-10 - R93.2) Overall, Michael appears well. He does not have any symptoms nor show any signs of chronic liver disease. We did review the ultrasound findings are probably in relation to his previous longstanding alcohol use but fortunately he has now been abstinent for 2 years. He does not show any signs of liver dysfunction on his laboratories. There is no splenomegaly on the ultrasound although he may have some slight underlying hypersplenism in relation to some underlying liver disease causing the mild thrombocytopenia . At this point I advised him the best way to treat this liver issue in regard to the hepatomegaly and some finding of underlying liver disease would be to continue to remain completely abstinent from alcohol long-term, watching his diet and weight carefully, and keeping his diabetes as well-controlled as possible. I shall check laboratories to rule out any issue with iron overload. I will also check a liver fibrosis score and PT with INR. I do not think he needs any further imaging studies or a liver biopsy. I did advise him that as long as his LFTs remain stable and he does not show any signs of progressive liver disease he would not need any particular follow-up on my part in this regard. I would recommend that you follow a liver profile every 6 months or so and closely monitor his risk factors for fatty liver disease in regard to the diabetes. We did review his negative screening colonoscopy earlier this year and the need for a follow-up colonoscopy in 2034 for for further screening purposes. If things remain stable he will otherwise see me on an as-needed basis. He should be referred back to me if his LFTs begin to rise greater than 2-3 times normal. Michael and his were comfortable with this plan. Thank you again for allowing me to have participated in Michael's care. Please do not hesitate to contact me if I can be of any further assistance in regard to the underlying hepatomegaly or any other issues. 11/29/2024 Other hemorrhoids (ICD-10 - K64.8) 04/05/2025 Colon cancer screening (ICD-10 - Z12.11) Repeat colonoscopy in 2034 Overall, Michael appears well. He does not have any symptoms nor show any signs of chronic liver disease. We did review the ultrasound findings are probably in relation to his previous longstanding alcohol use but fortunately he has now been abstinent for 2 years. He does not show any signs of liver dysfunction on his laboratories. There is no splenomegaly on the ultrasound although he may have some slight underlying hypersplenism in relation to some underlying liver disease causing the mild thrombocytopenia . At this point I advised him the best way to treat this liver issue in regard to the hepatomegaly and some finding of underlying liver disease would be to continue to remain completely abstinent from alcohol long-term, watching his diet and weight carefully, and keeping his diabetes as well-controlled as possible. I shall check laboratories to rule out any issue with iron overload. I will also check a liver fibrosis score and PT with INR. I do not think he needs any further imaging studies or a liver biopsy. I did advise him that as long as his LFTs remain stable and he does not show any signs of progressive liver disease he would not need any particular follow-up on my part in this regard. I would recommend that you follow a liver profile every 6 months or so and closely monitor his risk factors for fatty liver disease in regard to the diabetes. We did review his negative screening colonoscopy earlier this year and the need for a follow-up colonoscopy in 2034 for for further screening purposes. If things remain stable he will otherwise see me on an as-needed basis. He should be referred back to me if his LFTs begin to rise greater than 2-3 times normal. Michael and his were comfortable with this plan. Thank you again for allowing me to have participated in Michael's care. Please do not hesitate to contact me if I can be of any further assistance in regard to the underlying hepatomegaly or any other issues. 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 His elastography was somewhat elevated. Surgical History Surgery Date(Month/Year) Appendectomy Hospitalization History Reason Date(Month/Year)
[2025-05-24 07:54] LABS: Anion Gap 13 (12-20); Blood Urea Nitrogen 15 mg/dL (9-16); Calcium 9.4 mg/dL (8.4-10.2); Carbon Dioxide 27 mmol/L (22-29); Chloride 105 mmol/L (96-108); Estimated Glomerular Filt Rate > 60; Potassium 4.2 mmol/L (3.3-5.1); Sodium 141 mmol/L (135-145)
== END 2025-05-24 06:37 | disposition home or self-care (01) ==
LOC: HO.LAB 06:36
PROVIDERS: PCP Registered Nurse
DX: R07.2 Precordial pain (principal)
CPT/HCPCS: 36415; 80048

== ENCOUNTER 2025-06-16 13:27 | Outpatient (AMB) | payer MEDICAID, SELFPAY ==
--- OUTSIDE RECORDS SUMMARY | 2024-08-06 04:40 | XMS_ITS ---
Author Organization [facility] Address [address] [place] [address] Care Team Providers Care Property Analyst Name Role Phone PALOMO BERG MD Primary Care Provider Nestor Kim [phone] REASON FOR VISIT screening Encounters Encounter Location Date Provider Diagnosis [facility] Out[facility] [address] [place] [place] [id number] 08/06/2024 Nestor Garcia Plan Of Treatment No Information Progress Notes * RON RUDOLPHODOB:1974 (50 yo M)Acc No.[id number]:08/06/2024 COLON WITH MAC Patient: MICHAEL CALHOUN Provider: Hal Garcia MD :1975 A ge:49 Y S ex:Male Date:08/06/2024 Address:[address] [place], [place] Pcp:PALOMO BERG MD Subjective: * Chief Complaints: * 1 . Screening. * Medical History: Objective: * Vitals: Assessment: Plan: * Treatment: * * The named appointment provid er may or may not be the originator of this progress note, and it is not deemed complete until electronically signed by the appointment provider. Sign off status: Pending * Provider: Hal Garcia MD Date: 10/06/2023 Generated for Ignacioi ng/Faxing/eTransmitting on: 0 06/16/2025 05:24 PM EDT
--- OUTSIDE RECORDS SUMMARY | 2024-11-29 06:10 | XMS_ITS ---
Author Organization [facility] Address [address] [place] [address] Care Team Providers Care Institute Scientist Name Role Phone PALOMO BERG MD Primary Care Provider Nestor Kim [phone] REASON FOR VISIT colon screening Encounters Encounter Location Date Provider Diagnosis [facility] Outpatient [address] [place], [place] [phone] 11/29/2024 Nestor Garcia Colon cancer scree hope Z12.11 ; Diverticulosis of large intestine without perforation or abscess without bleeding K57.30 and Other hemorrhoids K64.8 Assessments Encounter Date Diagnosis (ICD Code) Assessment Notes Treatment Notes Treatment Clinical Notes Section Notes 11/29/2024 Colon cancer screening (ICD-10 - Z12.11) 11/29/2024 Diverticulosis of large intestine without perforation or abscess without bleeding (ICD-10 - K57.30) 11/29/2024 Other hemorrhoids (ICD-10 - K64.8) Plan Of Treatment No Information Progress Notes * MIKE RUDOLPHOB:1974 (50 yo M)Acc No.[id number]:11/29/2024 COLON WITH MAC Patient: KETAN CALHOUNARDO Provider: Hal Garcia MD :1975 A ge:49 Y S ex:Male Date:11/29/2024 Address:[address] Pcp:PALOMO BERG MD Subjective: * Chief Complaints: * 1 . Colon screening. * Medical History: Objective: * Vitals: Assessment: * Assessment: 1. C olon cancer screening - Z12.11 (Primary) 2 . D iverticulosis of large intestine without perforation or abscess without bleeding - K57.30 3 . O ther hemorrhoids - K64.8 Plan: * Treatment: * Procedure Codes: 4 5378 DIAGNOSTIC COLONOSCOPY * * The named appointment provid er may or may not be the originator of this progress note, and it is not deemed complete until electronically signed by the appointment provider. Sign off status: Pending * Provider: Hal Garcia MD Date: 0 11/29/2024 Generated for Aron andre/Paula/Reshmaitting on: 0 06/16/2025 05:24 PM EDT
--- NOTE | 2025-06-16 13:36 | MHC.OFFVIS ---
Vital Signs 06/16/25 13:38 Height 5 ft 11 in Weight 197 lb 8.547 oz BMI 27.5 BP 120/72 Blood Pressure Location Lt brachial Position Sitting Pulse 89 Pulse Source Pulse Oximeter Intake Visit Reasons: follow up cta results Ice Bag Assembler Required: No Ice Bag Assembler Services: Ice Bag Assembler Offered & Declined Accompanied by: Family/Other Allergies No Known Allergies Allergy (Mild, Verified 11/29/24 10:19) NONE Medication List - Last Reconciled 06/16/25 by Carloz Valentino MD amlodipine-atorvastatin 10-40 mg 1 tab PO QPM aspirin 81 mg PO DAILY celecoxib 200 mg PO BID cetirizine 10 mg PO QAM empagliflozin (Jardiance) 25 mg PO QAM fluoxetine 20 mg PO QAM lisinopril 40 mg PO QAM metformin 1,000 mg PO BID miscellaneous medical supply As directed pantoprazole 20 mg PO QAM propranolol 10 - 20 mg PO NEEDED sitagliptin phosphate (Januvia) 100 mg PO QAM walker As directed walker Rolling walker with wheels, use as directed HPI Comments Details: Daniel returns for follow-up. Recently seen in consultation regarding chest pain and shortness of breath. He had reported complaints of chest pain during mental stress. However, nothing clearly exertional. He has got diabetes on Medications. Past history of stroke due to noncompliance with blood pressure medications but now improved. History of blindness in the left eye, unclear etiology. No prior coronary disease or myocardial infarction. There is also history of obstructive sleep apnea per family and there is ongoing workup for the same. Apparently, there is some issue with the mask. In a prior sleep study from 2023, described to have severe obstructive sleep apnea. Since last seen, he has completed an echocardiogram and coronary CTA. Today, he reports that has no further chest pain and he is essentially free of all symptoms. [facility] Medical History Hypertension Diabetes CVA (cerebral vascular accident) Surgical History S/P appendectomy Family History Mother No problems noted. Social History Household Members: Spouse Housing: Apartment Are you a primary customer care coordinator to a significant other at home: No Do you presently have visiting nurse or other home services: No Alcohol intake: former Patient Tobacco Use Status: Never used Tobacco e-Cigarette/Vaping Use: Never Used Advance Directives Date on File: 08/09/22 service: No Current occupational status: unemployed Current occupation: rt handed Review of Systems Const Denies chills, Denies fatigue, Denies fever(s), Denies frequent falls, Denies weakness, Denies weight gain and Denies weight loss ENT Denies dizziness Card Denies chest pain, Denies leg edema, Denies lightheadedness, Denies palpitations, Denies dyspnea and Denies dyspnea on exertion Resp Denies cough, Denies dyspnea and Denies dyspnea on exertion GI Denies hematochezia Musc Denies abnormal gait, Denies muscle weakness, Denies numbness, Denies radiating pain into limb and Denies tingling Neuro Denies abnormal gait, Denies dizziness, Denies frequent falls, Denies numbness, Denies tingling and Denies weakness Endo Denies fatigue and Denies palpitations Physical Exam Vital Signs: Last Vital Signs Pulse 89 06/16/25 13:38 BP 120/72 06/16/25 13:38 BMI result Body Mass Index 27.5 Const General: comfortable and no acute distress Orientation/consciousness: patient oriented x3 HEENT Other: Unremarkable Head: Yes normal to inspection Neck Neck: Yes normal visual inspection Chest Chest palpation & inspection: normal inspection of the chest Resp Auscultation: clear to auscultation bilaterally Cardio Palpation: normal PMI Heart sounds: S1 normal heart sound present, S2 normal heart sound present, no gallops, no murmurs and no rubs GI Palpation (GI): Soft to palpation Back/Spine/Pelvis Other: unremarkable Skin General skin exam: no rashes or lesions noted Neuro General: patient oriented x3 Extrem General: Yes normal to inspection Psych Mental Status: mental status grossly normal Assessment & Plan Assessment & Plan (1) Precordial chest pain: Code(s): R07.2 - Precordial pain Category: Medical (2) Hypertension: Code(s): I10 - Essential (primary) hypertension Category: Medical (3) Diabetes: Comment: taking Jardiance, Januvia, Metformin Code(s): E11.9 - Type 2 diabetes mellitus without complications Category: Medical Plan Cardiac studies reviewed. Echocardiogram with LVEF of 52%. Possible basal inferior hypokinesis. Mild aortic valve calcification. Ascending aortic size 4 cm. In the coronary CTA, moderate plaque burden in the proximal to mid LAD. Proximal LAD with mixed plaque, close to 50% stenosis. First diagonal is a small to medium size branch with suspicious proximal 50-70% stenosis. At the proximal/mid LAD junction, suspicious 50-70% stenosis related to mixed plaque. OM1 with 25-50% stenosis from calcific plaque. Right coronary artery with scattered 25% stenosis. FFR is pending. Findings discussed with patient. Essentially, he has got [id number] coronary disease but currently denying any symptoms whatsoever. In this case, we will continue optimal medical therapy. Continue the diabetic medications, blood pressure meds and statins. LDL is well controlled. Advised him to watch out for symptoms like angina. If any such occurrence, advised him to contact us immediately. Then we will consider diagnostic catheterization. We will follow up in 3-4 months. Discussion Notes During the visit, we discussed the importance of monitoring for chest pain and the potential need for an angiogram if symptoms recur. The patient was advised to increase physical activity to manage hypertension and diabetes mellitus effectively. We also discussed the importance of medication adherence and the need to consult with healthcare providers before making any changes to medication regimens. Patient was informed and verbally consented to the use of an ambient scribe for clinic note documentation during this visit. Medications: New nitroglycerin do not exceed 3 doses per episode 0.4 mg sublingual Q5M PRN 30 tabs 5RF chest pain R07.2 - Precordial pain Patient Instructions: - Monitor for any chest pain and report it immediately. - Increase physical activity to help manage blood pressure and blood sugar levels. - Adhere to prescribed medications and consult your healthcare provider before making any changes. Coding Level of Care Code Est Pt Level 4 (56699) Complex EM visit Add On G2211 Diagnoses Precordial chest pain R07.2 Hypertension I10 Diabetes E11.9
[2025-06-16 13:38] VITALS: BP 120/72; PULSE 89; BMI 27.5
--- OUTSIDE RECORDS SUMMARY | 2025-06-16 17:24 | XMS_ITS | Encounter Summary ---
Author Organization [employer] [facility] Address [address] [place] [address] [address] [place] [address] Care Team Providers Care Platen Press Feeder Name Role Phone Pam Avilez PRISCA Primary Care Provider [phone] Dionisio James DPM Unavailable [phone] Reason for Visit * Reason Onset Date Comments medication 05/11/2024 Encounter Details Date Type Department Care Team (Late st Contact Info) Description 05/11/2024 Telephone [facility] [address], [place] [phone] Trino Parker DDS [address], [place] [phone] medication Social History Tobacco Use Types Packs/Day Years Used Date Smoking Tobacco: Never Passive Smoke Exposure: Never Smokeless Tobacco: Never Alcohol Use Standard Drinks/Week Comments Never 0 (1 standard drink = 0.6 oz pur e alcohol) Depression Answer Date Recorded Patient Health Questionnaire-9 Score 20 02/13/2024 Patient Health Questionnaire-9 Score 20 02/13/2024 Last PHQ-9: Questionnaire Data Not on file 0 02/13/2024 Housing Stability Answer Date Recorded What is your housing situation today? I have adan mccullough 12/05/[address] you li ve. Do you have problems with any of the following? None of the above 12/05/2023 Food Insecurity Answer Date Recorded Within the past 12 months, y ou worried that your food would run out before you got money to buy more: Never True 12/05/2023 Within the past 12 months,th e food you bought just didn't last and you didn't have enough money to get more: Never True 10/2023 Transportation Answer Date Recorded In the past 12 months, has l ack of transportation kept you from medical appts, meetings, work or from getting things needed for daily living? No 12/05/2023 Utilities Answer Date Recorded In the past 12 months, has t he electric, gas, oil or water company threatened to shut off services in your home? No 12/05/2023 Depression Answer Date Recorded Patient Health Questionnaire-2 Score 6 02/13/2024 Sex and Gender Information Value Date Recorded Sex Assigned at Male 08/05/2022 10:15 AM EDT Legal Sex Male 10:15 AM EDT Gender Identity Male 11/04/2022 8:40 PM EST Sexual Orientation Choose not to disclose 2021 10:15 AM EDT documented as of this encounter Miscellaneous Notes * Telephone Encounter - Jaci Spence - 05/11/2024 1:07 PM EDT Message for Dr. Parker Patient called in stating that he was under impression medication was going to be sent to pharmacy and nothing sent. DR documented in this encounter Plan of Treatment Upcoming Encounters Date Type Department Care Team (Late st Contact Info) Description 06/20/2025 3:15 PM EDT Office Visit [facility] [address] [place] [address] Pam Avilez, SCALE RECLAMATION TENDER [address] [place] [address] 09/14/2025 11:00 AM EST Office Visit [facility] [address] [place] [address] Mariopsa Herrmann, OD [address] [place] [address] documented as of this encounter Goals Goal Patient Goal Type Associated Problems Recent Progress Patient-Stated? Author Blood Pressure < 140/90 Blood Pressure 134/87(2024 10:55 AM EDT) No Ryan Espana PharmD Hemoglobin A1c < 7 Result Component 5.9( 4:08 PM EDT) No Ryan Espana PharmD documented as of this encounter Visit Diagnoses Not on filedocumented in this encounter Additional Health Concerns Assessment Noted Time PHQ-9 Depression Total Score: 20 024 2:51 PM EDT documented as of this encounter Care Teams Platen Press Feeder Relationship Specialty Start Date End Date Pam Avilez FNP [address] [place] [phone] PCP - General Family Medicine 08/28/22 Dionisio James DPM [address] [place] [address] Podiatry 10/08/24 documented as of this encounter
--- OUTSIDE RECORDS SUMMARY | 2025-06-16 17:24 | XMS_ITS | Encounter Summary ---
Author Organization [employer] [facility] Address [address] [place] [address] Care Team Providers Care Employment Specialist/Program Manager Name Role Phone Pam Avilez Primary Care Provider [phone] Dionisio James DPM Unavailable [phone] Reason for Visit * Reason Onset Date Comments Referral 02/27/2023 Encounter Details Date Type Department Care Team (Late st Contact Info) Description 02/27/2023 Telephone [facility] [address] [place] [address] Pam Avilez FNP [address] [place], [place] [phone] Referral Social History Tobacco Use Types Packs/Day Years Used Date Smoking Tobacco: Never Passive Smoke Exposure: Never Smokeless Tobacco: Never Alcohol Use Standard Drinks/Week Comments Never 0 (1 standard drink = 0.6 oz pur e alcohol) Sex and Gender Information Value Date Recorded Sex Assigned at Male 08/05/2022 10:15 AM EDT Legal Sex Male 10:15 AM EDT Gender Identity Male 11/04/2022 8:40 PM EST Sexual Orientation Choose not to disclose 2021 10:15 AM EDT COVID-19 Exposure Response Date Recorded In the last 10 days, have yo u been in contact with someone who was confirmed or suspected to have Coronavirus/COVID-19? No / Unsure 02/12/2023 3:37 PM EDT documented as of this encounter Miscellaneous Notes * Telephone Encounter - Monse Man - 03/11/2023 12:18 PM EDT Insurance auth sent with referral * Telephone Encounter - PRISCA Disla - 02/27/2023 5:41 PM EDT Referrals to OT and PT at [facility] ordered. Sending to Forms team and nurses as FYI. * Telephone Encounter - Zee Armenta - 02/27/2023 2:09 PM EDT Tc from Cristy from [facility] requesting new referral for Physical therapy and occupational therapy . PT diagnoses is CVA and evaluation date 02/24/23 and OT diagnoses is CVA and evaluation date 02/25/23. . Any questions may contact phone # [phone] documented in this encounter Plan of Treatment Upcoming Encounters Date Type Department Care Team (Late st Contact Info) Description 06/20/2025 3:15 PM EDT Office Visit [facility] [address] [place] [address] Pam Avilez FNP [address] [place] [address] 09/14/2025 11:00 AM EST Office Visit [facility] [address] [place] [address] Montez, Mariposa, OD [address] [place] [address] documented as of this encounter Visit Diagnoses Diagnosis Cerebrovascular accident (CVA) due to embolism of precerebral artery (CMS/HCC)- Primary documented in this encounter Additional Health Concerns Assessment Noted Time PHQ-9 Depression Total Score: 24 10/02/ 022 2:21 PM EST documented as of this encounter Care Teams Employment Specialist/Program Manager Relationship Specialty Start Date End Date Pam Avilez FNP [address] [place] [address] PCP - General Family Medicine 08/28/22 Dionisio James DPM [address] [place] [phone] Podiatry 10/08/24 documented as of this encounter
--- OUTSIDE RECORDS SUMMARY | 2025-06-16 17:24 | XMS_ITS | Encounter Summary ---
Author Organization [employer] Address [address] [place] [address] 7t [place] [address] Care Team Providers Care Microchip Specialist Name Role Phone Pam Avilez Primary Care Provider Dionisio James DPM Unavailable [phone] Encounter Details Date Type Department Care Team ([facility] Contact Info) Description 03/13/2023 Abstract [facility] [employer] [facility] [address] [place] [address] Pam Avilez FNP [address] [place], [place] [phone] Social History Tobacco Use Types Packs/Day Years [...] suspected to have Coronavirus/COVID-19? No / Unsure 03/10/2023 2:02 PM EDT documented as of this encounter Plan of Treatment Upcoming Encounters Date Type Department Care Team ([facility] Contact Info) Description 06/20/2025 3:15 PM EDT Office Visit [facility] CHC MED & PEDS [address] [place] [address] Pam Avilez FNP [address] [place] [address] 09/14/2025 11:00 AM EST Office Visit [facility] OPTOMETRY [address] [place] [address] Montez, Mariposa, OD [address] [place] [address] documented as of this encounter Visit Diagnoses Not on filedocumented in this encounter Additional Health Concerns Assessment Noted Time PHQ-9 Depression Total Score: 24 022 2:21 PM EST documented as of this encounter Care Teams Microchip Specialist Relationship Specialty Start Date End Date Pam Avilez FNP [address] [place] [address] PCP - General Family Medicine 08/28/22 Dionisio James DPM [address] [place] [address] Podiatry 10/08/24 documented as of this encounter
--- OUTSIDE RECORDS SUMMARY | 2025-06-16 17:24 | XMS_ITS | Encounter Summary ---
Author Organization [facility] Address [address] [place] [address] 7t [place] [address] Care Team Providers Care Insulation Board Back Tender Name Role Phone Pam Avilez PRISCA Primary Care Provider [phone] Dionisio James DPM Unavailable [phone] Encounter Details Date Type Department Care Team ([facility] Contact Info) Description 03/31/2023 Abstract [facility] ADULT DENTAL [address] [place], [place] [phone] Trino Parker DDS [address] [place], [place] [phone] Social History Tobacco Use Types Packs/Day Years [...] suspected to have Coronavirus/COVID-19? No / Unsure 03/26/2023 2:45 PM EDT documented as of this encounter Plan of Treatment Upcoming Encounters Date Type Department Care Team ([facility] Contact Info) Description 06/20/2025 3:15 PM EDT Office Visit [facility] CHC MED & PEDS [address] [place] [address] Pam Avilez FNP [address] [place] [address] 09/14/2025 11:00 AM EST Office Visit [facility] OPTOMETRY [address] [place] [address] MontezMariposa dumas, OD [address] [place] [address] documented as of this encounter Visit Diagnoses Not on filedocumented in this encounter Additional Health Concerns Assessment Noted Time PHQ-9 Depression Total Score: 24 022 2:21 PM EST documented as of this encounter Care Teams Insulation Board Back Tender Relationship Specialty Start Date End Date Pam Avilez FNP [address] [place] [address] PCP - General Family Medicine 08/28/22 Dionisio James DPM [address] [place] [address] Podiatry 10/08/24 documented as of this encounter
--- OUTSIDE RECORDS SUMMARY | 2025-06-16 17:24 | XMS_ITS | Encounter Summary ---
Author Organization [employer] Address [address] [place] [address] 7t [place] [address] Care Team Providers Care Police Justice Name Role Phone Pam Avilez PRISCA Primary Care Provider Dionisio James DPM Unavailable [phone] Reason for Visit * Reason Onset Date Comments Dental Pain 03/10/2023 Encounter Details Date Type Department Care Team (Late st Contact Info) Description 03/10/2023 Telephone [facility] ADULT DENTAL [address] [place], [place] [phone] Trino Parker DDS [address] [place], [place] [phone] Dental Pain Social History Tobacco Use Types Packs/Day Years [...] * Telephone Encounter - Jaci Spence - 03/10/2023 8:35 AM EDT Patient had extraction done on 03/04 and states that he is in extreme pain. Nothing he has taken has helped. documented in this encounter Plan of Treatment Upcoming Encounters Date Type Department Care Team (Late st Contact Info) Description 06/20/2025 3:15 PM EDT Office Visit [facility] CHC MED & PEDS [address] [place], [place] [phone] Pam Avilez FNP [address] [place] [address] 09/14/2025 11:00 AM EST Office Visit [facility] OPTOMETRY [address] [place] [address] Montez, Mariposa, OD [address] [place] [address] documented as of this encounter Visit Diagnoses Not on filedocumented in this encounter Additional Health Concerns Assessment Noted Time PHQ-9 Depression Total Score: 24 10/02/ 022 2:21 PM EST documented as of this encounter Care Teams Police Justice Relationship Specialty Start Date End Date Pam Avilez FNP [address] [place] [address] PCP - General Family Medicine 08/28/22 Dionisio James DPM [address] [place] [address] Podiatry 10/08/24 documented as of this encounter
--- OUTSIDE RECORDS SUMMARY | 2025-06-16 17:24 | XMS_ITS | Encounter Summary ---
Author Organization [employer] Address [address] [place] [address] 7t [place] [address] Care Team Providers Care Size Cutter Name Role Phone Pam Avilez Primary Care Provider Dionisio James DPM Unavailable [phone] Reason for Visit * Reason Comments Med Refill Encounter Details Date Type Department Care Team (Late Contact Info) Description 02/07/2023 Refill [facility] MEDICINE [address] [place] [address] Pam Avilez FNP [address] [place], [place] [phone] Osteoarthritis of right shoulder, unspecified osteoarthritis type Social History Tobacco Use Types Packs/Day Years Used Date Smoking Tobacco: Never Smokeless Tobacco: Never Alcohol Use Standard [...] suspected to have Coronavirus/COVID-19? No / Unsure 02/10/2023 9:57 AM EDT documented as of this encounter Plan of Treatment Upcoming Encounters Date Type Department Care Team (Late Contact Info) Description 06/20/2025 3:15 PM EDT Office Visit [facility] CHC MED & PEDS [address] [place] [address] Pam Avilez FNP [address] [place] [address] 09/14/2025 11:00 AM EST Office Visit [facility] OPTOMETRY [address] [place] [address] MontezMariposa dumas, OD [address] [place] [address] documented as of this encounter Visit Diagnoses Diagnosis Osteoarthritis of right shoulder, unspecified osteoarthritis type documented in this encounter Additional Health Concerns Assessment Noted Time PHQ-9 Depression Total Score: 24 022 2:21 PM EST documented as of this encounter Care Teams Size Cutter Relationship Specialty Start Date End Date Pam Avilez FNP [address] [place] [address] PCP - General Family Medicine 08/28/22 Dionisio James DPM [address] [place] [address] Podiatry 10/08/24 documented as of this encounter
--- OUTSIDE RECORDS SUMMARY | 2025-06-16 17:24 | XMS_ITS | Patient Health Record ---
Author Organization [facility] Address [address] [place] [address] Care Team Providers Care Sludge Control Attendant Name Role Phone PALOMO BERG MD Primary Care Provider Nestor Kim Unavailable [phone] Allergies No Known Allergies Results Component Value Reference Range Notes Glucose, Whole Blood Reviewed date:11/29/2024 05:20:43 PM Interpretation: Performing Lab:[facility], [address] [place] [id number] Notes/Report: Glucose, Whole Blood 143 60-115 mg/dL METER # : [id number] Reason For Referral Referring Provider First Name PALOMO Referring Provider Last Name MORENA Referred Organization [facility] Referred Provider Nestor Garcia Referred Address [address] [facility],[place] [address] [address] [place] [phone], Referred Provider Specialty Gastroentero logy General Notes Oneyda Gross 2024 04:24:55 PM >requested a [facility] referral from [facility] for visit with Dr. Garcia on [phone] Referral Priority Routine Medications Medication SIG (Take, [...] Status Risk Notes Problem Colon cancer screening (979808885) Colon cancer screening (Z12.11) Active confirmed Problem Pre-procedure evaluation check (976620827) Encounter for other preprocedural examination (Z01.818) Active confirmed Problem Long-term current use of aspirin (935785595157047 ) Aspirin long-term use (Z79.82) Active confirmed Problem Hepatomegaly (73943364) Hepatomegaly (R16.0) Active confirmed Problem Abnormal findings diagnostic imaging of liver and biliary tract (099066552) Abnormal liver ultrasound (R93.2) Active confirmed Vital Signs Blood pressure diastolic 77 mm Hg 04/05/2025 Height 71 in 04/05/2025 Blood pressure systolic 111 mm Hg 04/05/2025 Weight 210 lbs 04/05/2025 BMI 29.29 kg/m2 04/05/2025 Encounters Encounter Location Date Provider Diagnosis [facility] [address] [place] [id number] 11/29/2024 Nestor Garcia Colon cancer screeni ng Z12.11 ; Diverticulosis of large intestine without perforation or abscess without bleeding K57.30 and Other hemorrhoids K64.8 [facility] [address] [place] [phone] 04/05/2025 Nestor Garcia Hepatomegaly R16.0 ; Abnormal liver ultrasound R93.2 and Colon cancer screening Z12.11 [facility] [address] [place] [phone] 08/05/2024 Nestor Garcia Assessments Encounter Date Diagnosis [...] Start Date Coverage End Date MEDICAID OF [employer] [address] [place] [id number] LANDON MICHAEL King Self - patient is the insured Medical (General) History Medical History History ICD Code 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 His elastography was somewhat elevated. Surgical History Surgery Date(Month/Year) Appendectomy Hospitalization History Reason Date(Month/Year)
--- OUTSIDE RECORDS SUMMARY | 2025-06-16 17:24 | XMS_ITS | Encounter Summary ---
Author Organization [employer] Address [address] [facility] 7t [place] [address] Care Team Providers Care Radiologic Technologist Mammogram Name Role Phone Pam Avilez Primary Care Provider [phone] Dionisio James DPM Unavailable Reason for Visit * Reason Comments Med Refill Encounter Details Date Type Department Care Team ([facility] st Contact Info) Description 08/13/2024 Refill [facility] MEDICINE [address] [place] [address] Pam Avilez FNP [address] [place], [place] [phone] Social History Tobacco Use Types Packs/Day Years [...] Description 06/20/2025 3:15 PM EDT Office Visit [facility] CHC MED & PEDS [address] [place] [address] Pam Avilez, ONLINE EDITOR [address] [place] [address] 09/14/2025 11:00 AM EST Office Visit [facility] OPTOMETRY [address] [place] [address] Montez, Mariposa, OD [address] [place] [address] documented as of this encounter Goals Goal [...] documented as of this encounter Care Teams Radiologic Technologist Mammogram Relationship Specialty Start Date End Date Pam Avilez FNP [address] [place] [address] PCP - General Family Medicine 08/28/22 Dionisio James DPM [address] [address] Podiatry 10/08/24 documented as of this encounter
--- OUTSIDE RECORDS SUMMARY | 2025-06-16 17:24 | XMS_ITS | Encounter Summary ---
Author Organization [employer] Address [address] [place] [address] 7[address] [place] [address] Care Team Providers Care Medical Superintendent Name Role Phone Pam Avilez PRISCA Primary Care Provider [phone] Dionisio James DPM Unavailable [phone] Reason for Visit * Reason Comments Med Refill Encounter Details Date Type Department Care Team (Late st Contact Info) Description 06/04/2023 Refill [facility] ADULT DENTAL [address] [place] [address] Trino Parker DDS [address] [place], [place] [phone] Pain, dental Social History Tobacco Use Types [...] Description 06/20/2025 3:15 PM EDT Office Visit [facility] CHC MED & PEDS 505 [place], [place] [phone] Pam Avilez FNP 505 [place] [address] 09/14/2025 11:00 AM EST Office Visit [facility] OPTOMETRY [address] [place] [address] Montez, Mariposa, OD [address] [place] [address] documented as of this encounter Visit Diagnoses Diagnosis Pain, dental documented in this encounter Additional Health Concerns Assessment Noted Time PHQ-9 Depression Total Score: 0 05/06/20 23 2:06 PM EDT documented as of this encounter Care Teams Medical Superintendent Relationship Specialty Start Date End Date Pam Avilez FNP [address] [place] [address] PCP - General Family Medicine 08/28/22 Dionisio James DPM [address] [place] [address] Podiatry 10/08/24 documented as of this encounter
--- OUTSIDE RECORDS SUMMARY | 2025-06-16 17:24 | XMS_ITS | Clinical Summary ---
Author Organization [employer] Address [address] [facility] [address] [place] [address] Care Team Providers Care Counterintelligence Analyst Name Role Phone Pam Avilez PRISCA Primary Care Provider [phone] Dionisio James DPM Unavailable [phone] Allergies No known active allergies Medications * This document contains information received from the source organization and may not represent a complete record from that organization. Blood Glucose Monitoring Suppl (FreeStyle glucose monitoring) kit 1 each if needed. Active ammonium lactate (Lac-Hydrin) 12 % lotionIndicatio ns:Hyperkeratos is of skin APPLY TOPICALLY ONCE OR TWICE DAILY ON BACK OF TALONES NEEDED FOR DRY SKIN. 225 g 2 04/21/20 23 Active FreeStyle lancets USE TEST BLOOD SUGAR ONE OR TWO TIMES DAILY 100 each 11 07/01/20 24 Active empagliflozin (Jardiance) 25 MGIndications:T ype 2 diabetes mellitus without complication, without long-term current use of insulin ([facility]) TAKE 1 TABLET BY MOUTH EVERY MORNING 90 tablet 3 07/15/20 24 Active Blood Glucose Monitoring Suppl (FreeStyle Cadogan Lite) w/Device kit USE TO TEST BLOOD SUGAR TWICE DAILY 1 kit 07/23/20 24 Active Ciclopirox 0.77 % gel Apply 1 Application topically Once per day. 02/19/20 23 Active Blood Pressure kitIndications: Primary hypertension Use to check blood pressure once daily and when symptomatic. 1 kit 08/16/20 24 Active metFORMIN (Glucophage) 1000 MG tabletIndicatio ns:Type 2 diabetes mellitus without complication, without long-term current use of insulin (CMS/HCC) Take 1 tablet (1,000 mg) by mouth with breakfast and with evening meal. 180 tablet 3 08/18/20 24 025 Active aspirin (Aspirin Low Dose) 81 MG chewable tabletIndicatio ns:Cerebrovascu lar accident (CVA), unspecified mechanism (CMS/HCC) Chew 1 tablet (81 mg) Once per day. 90 tablet 3 08/18/20 24 Active sildenafil (Viagra) 25 MG tabletIndicatio ns:Erectile dysfunction, unspecified erectile dysfunction type Take 1 tablet by mouth if needed 60 minutes before sexual activity. 10 tablet 11 10/08/19 25 Active amLODIPine-ator vastatin (Caduet) 10-40 MG tabletIndicatio ns:Cerebrovascu lar accident (CVA) due to embolism of precerebral artery (CMS/HCC),Prima ry hypertension TAKE 1 TABLET BY MOUTH EVERY EVENING 90 tablet 3 10/14/19 25 Active FLUoxetine (PROzac) 40 MG capsuleIndicati ons:Anxiety and depression TAKE 1 CAPSULE BY MOUTH EVERY MORNING 90 capsule 3 10/14/19 25 Active cetirizine (ZyrTEC) 10 MG tabletIndicatio ns:Obstruction of left eustachian tube TAKE 1 TABLET BY MOUTH EVERY DAY IN THE MORNING 90 tablet 3 11/10/19 25 Active FREESTYLE LITE test stripIndication s:Type 2 diabetes mellitus without complication, without long-term current use of insulin (CMS/HCC) Use 1-2 times per day to check blood sugar level. 100 strip 11 11/24/19 25 Active propranolol (Inderal) 10 MG tabletIndicatio ns:Anxiety and depression TAKE 1 TO 2 TABLETS BY MOUTH 1 HOUR BEFORE an event that causes stress 30 tablet 2 03/01/20 25 Active Alcohol Swabs (Alcohol Prep) 70 % pads USE DIRECTED TO TEST BLOOD SUGAR TWICE DAILY 100 each 11 03/04/20 25 Active acetaminophen (Tylenol 8 Hour) 650 MG ER tabletIndicatio ns:Retained dental root Take 1 tablet (650 mg) by mouth every 8 (eight) hours if needed for mild pain. Do not crush, chew, or split. 30 tablet 03/04/20 25 Active pantoprazole (ProtoNix) 20 MG EC tablet tqt BY MOUTH EVERY MORNING 90 tablet 1 03/30/20 25 Active bacitracin-poly myxin b (Polysporin) ointmentIndicat ions:Callus between toes Apply to affected area twice daily 30 g 04/04/20 25 026 Active lisinopril 40 MG tabletIndicatio ns:Primary hypertension TAKE 1 TABLET BY MOUTH EVERY MORNING 90 tablet 3 05/25/20 25 Active lisinopril 40 MG tabletIndicatio ns:Primary hypertension TAKE 1 TABLET BY MOUTH EVERY MORNING 90 tablet 3 06/21/20 24 025 Discontinued Active Problems Problem Noted Date Diagnosed Date Right foot pain 04/19/2025 Callus of foot 04/19/2025 Left foot pain 04/19/2025 Assessment & Plan (04/19/2025 11:51 AM EDT): I will prescribe short course of ibuprofen, I advise to take them just if needed with full stomach and do not miss appointment with podiatry Retained dental root 03/04/2025 Hepatomegaly 12/07/2024 Overview (12/07/2024): 11/16/24: Abd US w/ elastography ordered for thrombocytopnia - median shear wave velocity is 1.96 m/s. Impression - hepatomegaly. Increased stiffness. FINDINGS: Liver: The right lobe of the liver measures 18.5 cm in size. The left lobe of the liver measures 10.2 cm in size. The liver demonstrates normal homogeneous echotexture. No focal mass or intrahepatic biliary ductal dilatation is identified. There is normal hepatopedal flow in the portal vein. FIB-4 Calculation: 1.91 at 10/01/2024 Lab Results Component Value Date AST 31 10/01/2024 ALT 33 10/01/2024 TOTPROTEIN 7.1 10/01/2024 ALB 4.6 10/01/2024 ALP 35 (L) 10/01/2024 TOTALBILIRUB 0.5 10/01/2024 Assessment & Plan (12/07/2024 4:29 PM EST): - Encouraged lifestyle interventions including continued alcohol abstinence, avoid tobacco/cigarettes, healthy nutrition and exercise habits -Referral to GI for further eval placed 12/07/2024 Severe dental caries 11/23/2024 Hammer toe 10/08/2024 Overview (10/08/2024): Following with Podiatry - Dr. James Assessment & Plan (03/22/2025 11:18 AM EDT): Consult January 2025 with recommendations for silicone toe sleeves Thrombocytopenia 10/08/2024 Overview (10/08/2024): Lab Results Component Value Date PLT 144 (L) 10/01/2024 PLT 156 (L) 07/01/2023 PLT 129 (L) 12/07/2022 - Liver US w/ elastography ordered 10/08/24 for further eval Assessment & Plan (10/08/2024 9:54 PM EST): - Initial eval with abd US. Consider checking Ptt/pt Mild acid reflux 04/02/2024 Assessment & Plan (10/08/2024 10:00 PM EST): - H. Pylori testing negative April 2024 - Pantoprazole 20 MG daily PRN, using sparingly - Reviewed lifestyle interventions to decrease symptoms including avoid triggering foods (such as coffee, chocolate, fatty foods), ating 2-3 hours before lying down Assessment & Plan (06/24/2024 2:44 PM EDT): - H. Pylori testing negative April 2024 - Pantoprazole 20 MG daily PRN, using sparingly - Reviewed lifestyle interventions to decrease symptoms including avoid triggering foods (such as coffee, chocolate, fatty foods), ating 2-3 hours before lying down Assessment & Plan (04/02/2024 3:02 PM EDT): Relevant orders: -Helicobacter pylori Antigen, EIA, Stool -Pantoprazole (Protonix) 20 MG EC tablet Pt was made aware that if medication is unsuccessful in treating symptoms, an endoscopy can be ordered. -Advised pt to have his coffee with milk and refrain from eating increased amounts of sauces (tomato) and dairy products(cheese) Partial edentulism 01/06/2024 Obstructive sleep apnea 01/06/2024 Overview (03/22/2025): Sleep study report from 12/24/23. Impression: severe YOLY. Recommendations: medium nasal mask with pressure 11cm. DME request sent on 01/06/24 Following with [facility] Consult February 2025: plan for HST so that pt may pursue CPAP again Assessment & Plan (10/08/2024 10:00 PM EST): Referral to sleep medicine for further discussion of better fitting masks and follow up titration/monitoring. Referral letter provided today. Assessment & Plan (02/14/2024 10:02 AM EDT): Referral to sleep medicine for further discussion of better fitting masks and follow up titration/monitoring Healthcare maintenance 12/12/2023 Overview (12/07/2024): Colonoscopy: Completed November 2024, next due 10 years Dental: [facility] Dental Last Physical/Comprehensive exam: 10/08/24 PSA: wnl Sep 2024 Anxiety and depression 10/22/2022 Assessment & Plan (12/07/2024 4:26 PM EST): Continue fluoxetine 40mg daily Refill of Propranolol 10-20mg PRN prior to stress inducing events sent to pharmacy Referral for BE on 02/11/24 Continue current plan Assessment & Plan (10/08/2024 10:03 PM EST): Continue fluoxetine 40mg daily Refill of Propranolol 10-20mg PRN prior to stress inducing events sent to pharmacy Referral for BE on 02/11/24 Well controlled with current plan Assessment & Plan (02/14/2024 10:01 AM EDT): Continue fluoxetine 40mg daily Refill of Propranolol 10-20mg PRN prior to stress inducing events sent to pharmacy Referral for BE on 02/11/24 Assessment & Plan (09/06/2023 11:35 AM EST): Continue fluoxetine 40mg daily Refill of Propranolol 10-20mg PRN prior to stress inducing events sent to pharmacy Assessment & Plan (2023 9:48 PM EDT): Increase fluoxetine to 40mg daily Referral to out patient therapy placed on 01/15/23, pending Denies SI/HI/thoughts of self harm Assessment & Plan (01/15/2023 11:03 AM EDT): -Continue fluoxetine 20mg daily -Referral to out patient therapy placed on 01/15/23 Cerebrovascular accident 08/28/2022 Overview (12/12/2023): -Pt with motor and speech deficits following acute CVA in Aug 2022 -Rehabilitation services including OT, PT, and speech therapy -Referral previously sent to [facility] to establish care, RMA re-sent Oct 2022 BP control: lisinopril 40mg daily amlodipine 10mg daily (combo pill) Statin: atorvastatin 40mg at bedtime (combo pill) Antiplatelet: DISCONTINUED clopidogrel 75mg daily x 8 weeks (stopped 10/08/22) Continue aspirin 81mg daily Assessment & Plan (12/07/2024 4:25 PM EST): -[employer] eval/report pending through [facility]. [facility] Forms team to please follow up. Assessment & Plan (12/12/2023 9:29 AM EST): -[employer] eval/report pending through [facility]. [facility] Forms team to please follow up. Assessment & Plan (08/17/2023 10:54 AM EST): -[employer] eval/report pending, PCP will attempt to follow up with agencies/health insurance as unclear why have not yet been approved -START amlodipine-atorvastatin 10mg-40mg nightly to assist with reduction of pill burden -DC individual medications Assessment & Plan (05/08/2023 8:58 AM EDT): DME request generated for the following items: shower chair, grab bars, toilet safety bars [employer] eval/report pending Assessment & Plan (03/29/2023 9:17 PM EDT): [facility] Forms team planning to refer to [facility] for evaluation of [employer] hours Assessment & Plan (01/15/2023 11:07 AM EDT): Referral to re-establish with PT services for gait and balance instability on 01/15/23 Assessment & Plan (11/17/2022 10:13 AM EST): Chart routed to Forms team to further discuss FMLA vs other eligibility options Assessment & Plan (10/07/2022 9:59 PM EST): -Pt with motor and speech deficits following acute CVA in Aug 2022 -Established with OT, PT. 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 Referral re-sent on 10/08/24 Assessment & Plan (10/07/2022 10:02 PM EST): -Referred to [facility] Eye Care on 08/27/22 Dyslipidemia 11/16/2012 Hypertension 11/16/2012 Assessment & Plan (12/07/2024 4:25 PM EST): Elevated in office, although well-controlled per home readings BP goal < 130/80 mmHg Continues with low salt diet and daily active as able Current medication regimen: Lisinopril 40mg daily Amlodipine-atorvastatin 10mg-40mg nightly ED precautions/Return parameters reviewed Assessment & Plan (10/08/2024 10:00 PM EST): BP goal < 130/80 mmHg Continues with low salt diet and daily active as able Current medication regimen: Lisinopril 40mg daily Amlodipine-atorvastatin 10mg-40mg nightly ED precautions/Return parameters reviewed Assessment & Plan (06/24/2024 2:48 PM EDT): BP goal < 130/80 mmHg Continues with low salt diet and daily active as able Current medication regimen: Lisinopril 40mg daily Amlodipine-atorvastatin 10mg-40mg nightly ED precautions/Return parameters reviewed Assessment & Plan (02/14/2024 10:02 AM EDT): BP goal < 130/80 mmHg Continues with low salt diet and daily active as able Current medication regimen: Lisinopril 40mg daily Amlodipine-atorvastatin 10mg-40mg nightly ED precautions/Return parameters reviewed Assessment & Plan (01/06/2024 6:25 AM EDT): BP goal < 130/80 mmHg Continues with low salt diet and daily active as able Current medication regimen: Lisinopril 40mg daily Amlodipine-atorvastatin 10mg-40mg nightly ED precautions/Return parameters reviewed Plan: Increase Jardiance for T2DM. If BP readings continue to remain elevated at home, plan to start metoprolol. Assessment & Plan (09/06/2023 11:33 AM EST): BP goal < 130/80 mmHg Elevated this AM, but reports typically well controlled. Possible low BG? Current medication regimen: Lisinopril 40mg daily Amlodipine-atorvastatin 10mg-40mg nightly ED precautions/Return parameters reviewed Assessment & Plan (08/17/2023 10:54 AM EST): BP goal < 130/80 mmHg Elevated in office, but well controlled per home readings Continue current regimen and lifestyle interventions Return parameters reviewed Assessment & Plan (05/08/2023 9:00 AM EDT): BP goal < 130/80 mmHg Well controlled per home readings Continue current regimen and lifestyle interventions Return parameters Assessment & Plan (03/29/2023 9:16 PM EDT): Reports home elevations (approx 10mmHg elevated) in anticipation of court hearing tomorrow. Discussed stress reduction strategies to best target the cause of BP elevation May use Propranolol 10-20mg 1 hour before stress inducing event. Reviewed med use and SE. 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 James Assessment & Plan (03/22/2025 11:30 AM EDT): - Excellent control. Goal to decrease pill burden. Plan: Discontinue Januvia. Continue Jardiance and metformin Assessment & Plan (10/08/2024 9:50 PM EST): Cont current regimen Assessment & Plan (09/06/2023 11:34 AM EST): -Shared decision making to cont with 1000mg tablet at this time. If symptoms return, consider return to 500mg tablet x 2 Assessment & Plan (10/07/2022 10:01 PM EST): -A1c 8.3% on 08/27/22 -Pt denies polyuria, polydipsia, polyphagia -Continue with metformin 500mg BID -Pt reports BG values improving at home -Continue to record BG values at home, return parameters reviewed Arthritis Assessment & Plan (02/12/2023 5:28 PM EDT): Pain in right shoulder significantly improved following steroid injection Currently has appt for March 2023 with [facility] PT, needs referral sent Referral to PT ordered Resolved Problems Problem Noted Date Diagnosed Date Resolved Date Severe dental caries 05/11/2024 024 Severe anxiety 04/30/2024 06/24/2024 Assessment & Plan (04/30/2024 2:52 PM EDT): PROGRESS NOTE: ID: Daniel is a 49 y.o. Decline to answer choose not to disclose- identified cis-male with previous documented hx of Depression and Anxiety No previous hx of services who presents for Anxiety and Depression During [facility] Consult Daniel presenting with depressed mood, loss of interests/pleasure , psychomotor retardation, fatigue/loss of energy, inappropriate guilt and excessive worry/anxiety, difficulty controlling worry, restless/keyed up/On edge, easily fatigued, and irritability; for a period of 18+ mo, for all symptoms in the context of stroke, losing independence, lack of employment, and identity interruption. PLAN: New/Additional Services needed PCP management Off-site services for Behavioral Health Integration Plan External OP therapy referral and OP psychiatry Referral Patient Self Plan Patient to utilize skills provided in intervention , Patient to reach out to [facility] team as needed, Comply with medication , and Patient to engage in OP therapy Dental abscess 02/10/2023 02/12/2023 Alcohol abuse 11/16/2012 10/07/2022 Encounters Date Type Department Care Team Description 06/10/2025 Patient Outreach [facility] [address] [place] [address] Pam Avilez FNP Pre-visit Planning (SDOH screening completed on 03/18/25 ) 05/25/2025 Refill [facility] [address] [place] [address] Pam Avilez FNP Primary hypertension 05/24/2025 Orders Only GENERIC EXTERNAL DATA DEPARTMENT Provider, Generic External Data 04/19/2025 10:20 AM EDT Office Visit [facility] [address] [place] [id number] Tiarra Winkler MD Callus of foot (Primary Dx); Left foot pain 04/19/2025 Travel 04/18/2025 Travel 04/18/[address] [address] Pam Avilez FNP Nurse Triage 04/04/2025 1:40 PM EDT Office Visit [facility] [address] [place] [id number] Estefani Camara ANP Callus between toes (Primary Dx); Type 2 diabetes mellitus without complication, without long-term current use of insulin (CMS/HCC); Hammer toes of both feet 04/04/2025 Telephone [facility] [address] [place] [id number] Estefani Camara ANP 04/04/2025 Travel 04/04/2025 Telephone [facility] [address] [place] [address] Pam Avilez FNP Nurse Triage 04/04/[address] [address] Pam Avilez FNP Nurse Triage 03/30/[address] [address] Pam Avilez FNP Referral 03/29/2025 Refill [facility] [address] [place] [address] Pam Avilez FNP 03/24/2025 Refill [facility] [address] [place] [address] Pam vAilez FNP Anxiety and depression 03/18/2025 1:45 PM EDT Office Visit [facility] [address] [place] [address] Pam Avilez FNP Type 2 diabetes mellitus without complication, without long-term current use of insulin (CMS/HCC) (Primary Dx); Hammer toes of both feet; Obstructive sleep apnea; Cerebrovascular accident (CVA) due to embolism of precerebral artery ([facility]); Gait instability 03/18/2025 Travel from Last 3 Months Immunizations Immunization Administration Dates Next Due Hep B, adult 05/20/2017,12/12/1999,08/02/1998 Influenza injectable quadriv alent preservative free 07/07/2023,08/07/2022,09/10/2021 Influenza, IIV3, injectable 07/16/2015, 1,07/16/2005 Influenza, seasonal, injecta ble, preservative free 07/14/2024 MMR 12/12/1999 Pfizer Covid-19 Vaccine 12+ 07/14/2024, 4 Pneumococcal Conjugate PCV 20 08/08/2023 Pneumococcal Polysaccharide PPSV23 07/04/2011, TD (adult), 2 Lf tetanus tox oid, preservative free, adsorbed 12/13/2008,03/30/1999 Tdap 10/16/2023 Zoster, Recombinant 12/18/2023,10/16/2023 Family History Medical History Relation Name Comments Asthma Father Diabetes Father Relation Name Status Comments Father Social History Tobacco Use Types Packs/Day Years Used Date Smoking Tobacco: Never Passive Smoke Exposure: Never Smokeless Tobacco: Never Tobacco Cessation:Counseling Given: Not Answered Alcohol Use Standard Drinks/Week Comments Never 0 (1 standard drink = 0.6 oz pur e alcohol) Depression Answer Date Recorded Patient Health Questionnaire-9 Score 2 10/08/2024 Patient Health Questionnaire-9 Score 2 10/08/2024 Last PHQ-9: Questionnaire Data Not on file 0 10/08/2024 Housing Stability Answer Date Recorded What is your housing situation today? I have adan mccullough 03/18/[address] you li ve. Do you have problems with any of the following? None of the above 03/18/2025 Food Insecurity Answer Date Recorded Within the past 12 months, y ou worried that your food would run out before you got money to buy more: Never True 03/18/2025 Within the past 12 months,th e food you bought just didn't last and you didn't have enough money to get more: Never True Transportation Answer Date Recorded In the past 12 months, has l ack of transportation kept you from medical appts, meetings, work or from getting things needed for daily living? No 03/18/2025 Utilities Answer Date Recorded In the past 12 months, has t he electric, gas, oil or water company threatened to shut off services in your home? Yes 03/18/2025 Depression Answer Date Recorded Patient Health Questionnaire-2 Score 1 10/08/2024 Internet Access Answer Date Recorded Internet Access Q1 Yes 03/18/2025 Internet Access Q2 Not on file 03/18/2025 Sex and Gender Information Value Date Recorded Sex Assigned at Male 08/05/2022 10:15 AM EDT Legal Sex Male 10:15 AM EDT Gender Identity Male 11/04/2022 8:40 PM EST Sexual Orientation Choose not to disclose 2021 10:15 AM EDT Last Filed Vital Signs Vital Sign Reading Time Taken Comments Blood Pressure 134/87 04/19/2025 10:55 AM EDT Pulse 95 04/19/2025 10:55 AM EDT Temperature 36.9 C (98.4 F) 04/19/2025 10:55 AM EDT Respiratory Rate 18 04/19/2025 10:55 AM EDT Oxygen Saturation 97% 04/19/2025 10:55 AM EDT Inhaled Oxygen Concentration - - Weight 89.9 kg (198 lb 1.6 oz) 04/19/2025 10:55 AM EDT Height 172.7 cm (5' 8 ) 03/18/2025 1:46 PM EDT Body Mass Index 30.12 03/18/2025 1:46 PM EDT Plan of Treatment Upcoming Encounters Date Type Department Care Team (Late st Contact Info) Description 06/20/2025 3:15 PM EDT Office Visit [facility] [address] [place] [address] Pam Avilez FNP [address] [place] [address] 09/14/2025 11:00 AM EST Office Visit [facility] [address] [place] [address] Mariposa Herrmann, OD [address] [place] [address] Health Maintenance Due Date Last Done Comments CT Colonography 1973 FIT DNA/Cologuard 1973 FIT 1973 FOBT 1973 Sigmoidoscopy 1973 Diabetes: Foot Exam 1983 Alcohol/Substance Use Screening 1985 Family Planning (PISQ) 02/24/1988 Hepatitis A Vaccines (1 of 2 - Risk 2-dose series) 02/24/1992 Dental Oral Exam 02/25/2025 08/27/2024, 02/10/2023 Dental Prophylaxis 02/25/2025 08/27/2024 Influenza Vaccine (#1) 2025 , 07/07/2023, 08/07/2022, Additional history exists Eye Exam 07/21/2025 07/21/2024, 07/06, 07/21/2024, Additional history exists Dental X-Ray: Bitewings 08/28/2025 08/27/2024, 02/10 Diabetes: Hemoglobin A1C 09/17/2025 025, 10/08/2024, 06/21/2024, Additional history exists Diabetes: Urine Protein Screening 10/01/2025 10/01/2024, 10/17/2023 Lipid Panel 10/01/2025 10/01/2024, 10/17/2023 Depression Screening 10/08/2025 10/08/2024, 10/08/19 25 Disability Screening 03/18/2026 03/18/2025 SDOH Screening 03/18/2026 03/18/2025 Tobacco Screening 04/04/2026 04/04/2025 Dental X-Ray: Full Mouth 05/12/2027 05/11/2024, 05/2023 DTaP/Tdap/Td Vaccines (3 - Td or Tdap) 10/16/2033 10/16/2023, 07/01/2023, 12/13/2008, Additional history exists Colonoscopy 11/29/2034 11/29/2024, 11/29/2024 Colorectal Cancer Screening 11/29/2034 RSV Patients and Patients Aged 60 years or older (1 - 1-dose 75+ series) 02/24/2048 Hepatitis B Vaccines Completed 05/20/2017, 12/12/1999, 08/02/1998 Pneumococcal Vaccine: 50+ Years Completed 08/08/2023, 07/04/2011, 12/28/2004 Zoster Vaccines Completed 12/18/2023, 10/16/2023 COVID-19 Vaccine Completed 07/14/2024, 01/01/2024 HIV Screening Completed 10/01/2024 Hepatitis C Screening Completed 10/01/2024 HIB Vaccines Aged Out No longer eligi ble based on patient's age to complete this topic HPV Vaccines Aged Out No longer eligi ble based on patient's age to complete this topic IPV Vaccines Aged Out No longer eligi ble based on patient's age to complete this topic Meningococcal B Vaccine Aged Out No l onger eligible based on patient's age to complete this topic Meningococcal Vaccine Aged Out No carloz summer eligible based on patient's age to complete this topic RSV under 20 months Aged Out No longe r eligible based on patient's age to complete this topic Rotavirus Vaccines Aged Out No longer eligible based on patient's age to complete this topic Goals Goal Patient Goal Type Associated Problems Recent Progress Patient-Stated? Author Blood Pressure < 140/90 Blood Pressure 134/87(2024 10:55 AM EDT) No Ryan Espana, Denys Hemoglobin A1c < 7 Result Component 5.9( 4:08 PM EDT) No Ryan Espana PharmD Procedures Procedure Name Priority Date/Time Associated Diagnosis Comments BASIC METABOLIC PANEL Routine 05/24/2025 6:45 AM EDT POCT GLUCOSE Routine 03/18/2025 4:08 PM EDT Type 2 diabetes mellitus without complication, without long-term current use of insulin ([facility]/HCC) POCT GLYCATED HEMOGLOBIN, TOTAL Routine 03/18/2025 4:08 PM EDT Type 2 diabetes mellitus without complication, without long-term current use of insulin (CMS/HCC) HM COLONOSCOPY Routine 11/29/2024 10:37 AM EST HEPATITIS C VIRAL RNA, QUANTITATIVE, REAL-TIME PCR Routine 10/01/2024 7:55 AM EST Healthcare maintenance HIV 1/2 ANTIGEN/ANTIBODY, FOURTH GENERATION W/RFL Routine 10/01/2024 7:55 AM EST Healthcare maintenance ALBUMIN, RANDOM URINE W/CREATININE Routine 10/01/2024 7:55 AM EST Healthcare maintenance LIPID PANEL, STANDARD Routine 10/01/2024 7:55 AM EST Healthcare maintenance PROPHYLAXIS - ADULT Routine 08/27/2024 9 :00 AM EST Dental calculus Dental plaque BITEWINGS - 4 RADIOGRAPHIC IMAGES Routine 08/27/2024 9:00 AM EST PERIODIC ORAL EVALUATION - ESTABLISHED PATIENT Routine 08/27/2024 9:00 AM EST PANORAMIC RADIOGRAPHIC IMAGE Routine 05/11/2024 8:00 AM EDT from Last 3 Months or Most Recently Relevant to Health Maintenance Results * (ABNORMAL) Basic Metabolic Panel (05/24/2025 6:45 AM EDT) Sodium 141 135 - 145 mmol/L [facility] Potassium 4.2 3.3 - 5.1 mmol/L [facility] Chloride 105 96 - 108 mmol/L [facility] Carbon Dioxide 27 22 - 29 mmol/L [facility] Anion Gap 13 12 - 20 [facility] Urea Nitrogen (BUN) 15 9 - 16 mg/dL [facility] Creatinine, Serum 0.60 0.5 - 1.4 mg/dL [facility] Estimated Glomerular Filt Rate >60 [facility] Comment:Chronic Kidney Disea se: Estimated GFR < 60 mL/min/1.87b4Rpczoj Kidney Disease: Estimated GFR < 15 mL/min/1.73m2 Glucose 124(H) 60 - 115 mg/dL [facility] Calcium 9.4 8.4 - 10.2 mg/dL [facility] 05/24/2025 6:45 AM EDT 05/24/2025 6:45 AM EDT us Generic External Data Provider LAB BLOOD ORDERAB LES Final Result [facility] [address] [place] [address] [phone] * POCT HGB A1C (03/18/2025 4:08 PM EDT) [facility] Hemoglobin A1C 5.9 4.0 - 6.0 % QC Media Lot # [id number] Lot# Expiration Date Blood 03/18/2025 4:08 PM EDT Pam Fatmata SPECIAL EVENT ASSISTANT POINT OF CARE TEST ENTER/EDIT ORDERABLES Final Result * POCT Glucose (03/18/2025 4:08 PM EDT) [facility] Glucose Blood, POC 131 60 - 200 mg/dL QC Media Lot # [id number] Lot# Expiration Date Blood Capillary blood specimen / Unknown 03/18/2025 4:08 PM EDT Pam Phalen SPECIAL EVENT ASSISTANT POINT OF CARE TEST ENTER/EDIT ORDERABLES Final Result * Hm Colonoscopy (11/29/2024 10:37 AM EST) Historical Provider HEALTH MAINTENANCE Edited Result - Final * Hepatitis C Viral RNA, Quantitative, Real-Time PCR (10/01/2024 7:55 AM EST) [facility] Hepatitis C Viral Load <15 NOT DETECTED NOT DETECTED IU/mL [facility] HCV Log PCR <1.18 NOT DETECTED NOT DETECTED Log IU/mL [facility] Comment:For additional infor mation, please refer tohttp://education.Kontiki/faq/CUI30r4(This link is being provided for informational/educational purposes only.)THIS TEST WAS PERFORMED AT:[facility] [place] [id number] GIANG MD Blood 10/01/2024 7:55 AM EST 10/01/2024 11:37 AM EST Pam Avilez [facility] LAB BLOOD ORDERABLES Final Res ult Performing Organization Address [facility] Co de Phone Number [facility] [address] [place] [phone] * Albumin, Random Urine W/Creatinine (10/01/2024 7:55 AM EST) Creatinine, Urine 99.88 mg/dL [facility] Microalbumin Urine 16.0 mg/L [facility] Microalbum Creatinine Ratio Ur 16.0 <30 ug/mg cr [facility] Comment:Albumin/Creatinine R atio Reference Ranges: Normal: < 30 ug/mg creatinine Microalbuminuria: 30 - 300 ug/mg creatinineClinical Albuminuria: > 300 ug/mg creatinine Urine 10/01/2024 7:55 AM EST 10/01/2024 11:33 AM EST Pam Avilez [facility] URINE ORDERABLES Final Res ult Performing Organization Address [facility] de Phone Number [facility] [address] [place] [phone] * HIV-1/2 Antigen and Antibodies, Fourth Generation, with Reflexes (10/01/2024 7:55 AM EST) HIV AB/AG Nonreactive Nonreactive [facility] Comment:HIV-1 p24 Ag and/or HIV-1/HIV-2 Ab not detected.A test result that is nonreactive does not exclude thepossibility of exposure to or infection with HIV-1 and/orHIV-2. Nonreactive results in this assay for individualswith prior exposure to HIV-1 and/or HIV-2 may be due toantigen and antibody levels that are below the limit ofdetection of this assay.[employer] HIV Ag/Ab Combo assay result andsupplemental assay results should be interpreted inconjunction with the patient's clinical presentation,history and other laboratory results. If the results areinconsistent with clinical evidence, additional testing issuggested to confirm the result. Blood Venous blood specimen / Unknown 10/01/2024 7:55 AM EST 10/01/2024 11:37 AM EST Pam Avilez [facility] BLOOD ORDERABLES Final Res ult Performing Organization Address [facility]/ZIP Co de Phone Number [facility] [address] [place] [phone] * Lipid Panel, Standard (10/01/2024 7:55 AM EST) Triglycerides 91 <150 mg/dL [facility] Comment:Desirable Triglyceri de: less than 150 mg/dLBorderline High Triglyceride 150-199 mg/dLHigh Triglyceride: 200-499 mg/dLVery High Triglyceride: greater than or equal to 5OO mg/dL Cholesterol 131 <200 mg/dL [facility] Comment:Desirable Cholestero l: less than 200 mg/dLBorderline High Cholesterol: 200-239 mg/dLHigh Cholesterol: greater than 239 mg/dL LDL Cholesterol Calculated 70 <100 mg/dL [facility] Comment:Desirable LDL: less than 100 mg/dLNear Optimal/Above Optimal LDL: 110- 129 mg/dLBorderline High LDL: 130-159 mg/dLHigh LDL: 160-189 mg/dLVery High LDL: greater than or equal to 190 mg/dL HDL Cholesterol 43 >40 mg/dL [facility] Comment:Desirable HDL: great er than 40 mg/dL Note: This HDL assay may give artificially low results in patients with liver disease. Blood Venous blood specimen / Unknown 10/01/2024 7:55 AM EST 10/01/2024 11:37 AM EST Pam Avilez SPECIAL EVENT ASSISTANT LAB BLOOD ORDERABLES Final Res ult Performing Organization Address [facility]/ZIP Co de Phone Number [facility] [address] [place] [phone] from Last 3 Months or Most Recently Relevant to Health Maintenance Insurance [facility] C3 * Guarantor: Daniel Rodriguez Account Type Relation to Patient Date of Phone Billing Address Dental Self [address] [place] [address] [facility]AL-[facility] MEDICAID STAND ADULT Care Teams Counterintelligence Analyst Relationship Specialty Start Date End Date Pam Avilez FNP [address] [place] [address] PCP - General Family Medicine 08/28/22 Dionisio James DPM [address] [address] Podiatry 10/08/24
--- OUTSIDE RECORDS SUMMARY | 2025-06-16 17:24 | XMS_ITS | Encounter Summary ---
Author Organization [employer] Address [address] [place] [address] [address] [place] [address] Care Team Providers Care Woodworking Machine Operator Name Role Phone Pam Avilez Primary Care Provider Dionisio James DPM Unavailable [phone] Reason for Visit * Reason Comments Med Refill Encounter Details Date Type Department Care Team ([facility] [address] Contact Info) Description 08/17/2024 Refill [facility] [address] [place] [address] Pam Avilez FNP [address] [place], [place] [phone] Cerebrovascular accident (CVA), unspecified mechanism (CMS/HCC); Type 2 diabetes mellitus without complication, without long-term current use of insulin (CMS/HCC) Social History Tobacco Use Types Packs/Day Years [...] the past 12 months, has t he [employer], gas, oil or water company threatened to [...] 06/20/2025 3:15 PM EDT Office Visit [facility] CHC MED & PEDS [address] [place] [address] Pam Avilez, PRISCA [address] [place] [address] 09/14/2025 11:00 AM EST Office Visit [facility] OPTOMETRY [address] [place] [address] Mariposa Herrmann, OD [address] [place] [address] documented as of this encounter Goals Goal Patient Goal Type Associated Problems Recent Progress Patient-Stated? Author Blood Pressure < 140/90 Blood Pressure 134/87(2024 10:55 AM EDT) No Ryan Espana, Denys Hemoglobin A1c < 7 Result Component 5.9( 4:08 PM EDT) No Ryan Espana PharmD documented as of this encounter Visit Diagnoses Diagnosis Cerebrovascular accident (CVA), unspecified mechanism (CMS/HCC) Type 2 diabetes mellitus without complication, without long-term current use of insulin (CMS/[facility]) documented in this encounter Additional Health Concerns Assessment Noted Time PHQ-9 Depression Total Score: 20 024 2:51 PM EDT documented as of this encounter Care Teams Woodworking Machine Operator Relationship Specialty Start Date End Date Pam Avilez FNP [address] [place] [address] PCP - General Family Medicine 08/28/22 Dionisio James DPM [address] [address] Podiatry 10/08/24 documented as of this encounter
--- OUTSIDE RECORDS SUMMARY | 2025-06-16 17:25 | XMS_ITS | Encounter Summary ---
Author Organization [employer] Address [address] [place] [address] 7t [place] [address] Care Team Providers Care Intensive Care Unit Nurse Name Role Phone Pam Avilez Primary Care Provider [phone] Dionisio James DPM Unavailable [phone] Reason for Visit * Reason Comments Med Refill Encounter Details Date Type Department Care Team ([facility] Contact Info) Description 03/24/2025 Refill [facility] MED [facility] PEDS [address] [place] [address] Pam Avilez FNP [address] [place], [place] [phone] Anxiety and depression Social History Tobacco Use Types Packs/Day Years [...] Description 06/20/2025 3:15 PM EDT Office Visit [facility] CHC MED & PEDS [address] [place] [address] Pam Avilez FNP [address] [place] [address] 09/14/2025 11:00 AM EST Office Visit [facility] OPTOMETRY [address] [place] [address] Montez, Mariposa, OD [address] [place] [address] documented as of this encounter Goals Goal Patient Goal Type Associated Problems Recent Progress Patient-Stated? Author Blood Pressure < 140/90 Blood Pressure 134/87(2024 10:55 AM EDT) No Ryan Espana, PharmWilliam Hemoglobin A1c < 7 Result Component 5.9( 4:08 PM EDT) No Ryan Espana PharmD documented as of this encounter Visit Diagnoses Diagnosis Anxiety and depression documented in this encounter Additional Health Concerns Assessment Noted Time PHQ-9 Depression Total Score: 2 10/08/19 25 10:24 AM EST documented as of this encounter Care Teams Intensive Care Unit Nurse Relationship Specialty Start Date End Date Pam Avilez FNP [address] [place] [address] PCP - General Family Medicine 08/28/22 Dionisio James DPM [address] [address] Podiatry 10/08/24 documented as of this encounter
--- OUTSIDE RECORDS SUMMARY | 2025-06-16 17:25 | XMS_ITS | Encounter Summary ---
Author Organization [employer] Address [address] [facility] 7t [place] [address] Care Team Providers Care Associate Professor Of Literacy Name Role Phone Pam Avilez Primary Care Provider [phone] Dionisio James DPM Unavailable [phone] Reason for Visit * Reason Onset Date Comments Nurse Triage 04/18/2025 Encounter Details Date Type Department Care Team (Late st Contact Info) Description 04/18/2025 Telephone [facility] MEDICINE [address] [place] [address] Pam Avilez FNP [address] [place], [place] [phone] Nurse Triage Social History Tobacco Use Types Packs/Day Years [...] encounter Miscellaneous Notes * Telephone Encounter - Meggan Galarza RN - 04/18/2025 4:51 PM EDT Symptom: Toe Pain - Not From Injury Outcome: Talk to a nurse or provider within 15 minutes Reason: Can't walk (unless normally can't walk) The caller accepted this outcome. [phone] TC placed to pt spoke to pt with pt permission pt was seen 04/04/2025 for pea size lump under great toe on left foot. Patient now has several lumps bottom of his left toe and it is painful to walk, pt reports cream helped his toe however not multiple marble size lumps on bottom of foot. Pt pre-booked for transportation in walk in tomorrow for evaluation. * Telephone Encounter - Wiliam Dahl - 04/18/2025 3:06 PM EDT Symptom: Toe Pain - Not From Injury Outcome: Talk to a nurse or provider within 15 minutes Reason: Can't walk (unless normally can't walk) The caller accepted this outcome. [phone] documented in this encounter Plan of Treatment Upcoming Encounters Date Type Department Care Team (Late st Contact Info) Description 06/20/2025 3:15 PM EDT Office Visit [facility] CHC MED & PEDS [address] [place] [address] Pam Avilez FNP [address] [place] [address] 09/14/2025 11:00 AM EST Office Visit [facility] OPTOMETRY [address] [place] [address] Mariposa Herrmann, OD [address] [place] [address] documented as of this encounter Goals Goal Patient Goal Type Associated Problems Recent Progress Patient-Stated? Author Blood Pressure < 140/90 Blood Pressure 134/87(2024 10:55 AM EDT) No Ryan Espana, PharmD Hemoglobin A1c < 7 Result Component 5.9( 4:08 PM EDT) No Ryan Espana PharmD documented as of this encounter Visit Diagnoses Not on filedocumented in this encounter Additional Health Concerns Assessment Noted Time PHQ-9 Depression Total Score: 2 10/08/19 25 10:24 AM EST documented as of this encounter Care Teams Associate Professor Of Literacy Relationship Specialty Start Date End Date Pam Avilez FNP [address] [place] [address] PCP - General Family Medicine 08/28/22 Dionisio Jamse DPM 175 [facility] [address] [place] [address] Podiatry 10/08/24 documented as of this encounter
--- OUTSIDE RECORDS SUMMARY | 2025-06-16 17:25 | XMS_ITS | Encounter Summary ---
Author Organization [employer] Address [address] [facility] 7t [place] [address] Care Team Providers Care Equipment Service Lead Name Role Phone Pam Avilez Primary Care Provider [phone] Dionisio James DPM Unavailable [phone] Reason for Visit * Reason Onset Date Comments Referral 03/30/2025 Encounter Details Date Type Department Care Team (Late st Contact Info) Description 03/30/2025 Telephone [facility] MEDICINE [address] [place] [address] Pam Avilez FNP [address] [place], [place] [phone] Referral Social History Tobacco Use Types Packs/Day [...] encounter Miscellaneous Notes * Telephone Encounter - Jerrica Corea - 03/31/2025 9:48 AM EDT Patient booked at [facility]. Patient notified. * Telephone Encounter - Chely Corea - 03/30/2025 3:05 PM EDT TC from daughter requesting an update to an existing referral for physical therapy. Daughter statesthat patient does not wish to attend the originally selected location and [facility] [place]. Fax to [phone] documented in this encounter Plan of Treatment Upcoming Encounters Date Type Department Care Team ([facility] st Contact Info) Description 06/20/2025 3:15 PM EDT Office Visit [facility] MED & PEDS [address] [place] [address] Pam Avilez FNP [address] [place] [address] 09/14/2025 11:00 AM EST Office Visit [facility] OPTOMETRY [address] [place] [address] Mariposa Herrmann, REGULO [address] [place] [address] documented as of this encounter Goals Goal [...] documented as of this encounter Care Teams Equipment Service Lead Relationship Specialty Start Date End Date Pam Avilez FNP [address] [place] [address] PCP - General Family Medicine 08/28/22 Dionisio James DPM [address] [place] [address] Podiatry 10/08/24 documented as of this encounter
--- OUTSIDE RECORDS SUMMARY | 2025-06-16 17:25 | XMS_ITS | Encounter Summary ---
Author Organization [employer] Address [address] [facility] 7t [place] [address] Care Team Providers Care Investor Relations Coordinator Name Role Phone Pam Avilez Primary Care Provider Dionisio James DPM Unavailable Reason for Visit * Reason Onset Date Comments x ray result 11/19/2022 Encounter Details Date Type Department Care Team (Late st Contact Info) Description 11/19/2022 Telephone [facility] MEDICINE [address] [place] [address] Pam Avilez FNP [address] [place], [place] [phone] x ray result Social History Tobacco Use Types Packs/Day Years [...] suspected to have Coronavirus/COVID-19? No / Unsure 11/15/2022 1:35 PM EST documented as of this encounter Miscellaneous Notes * Telephone Encounter - Emily Landaverde RN - 11/19/2022 4:58 PM EST TC returned to [facility](on HIPPA forms in previous EHR) regarding message below. RN informed , once results are read by Radiologist, results are sent to provider and pt will be notified. Wifeverbalized understanding. requesting to inform his Dr. Orozco, he was seen at therapy today and was discharged because what they are doing is not helping and until they get results(referring tox-ray), they are not going to work with him. RN informed , message would be sent to PCP Pam Avilez. verbalized understanding. /pt to F/U as needed. RN will forward message to Pam Avilez TAX ACCOUNTING MANAGER as FYI. Tc from [employer] requesting x ray result for pt and also requesting a follow up regarding to pt. Please contact [facility] at [phone] * Telephone Encounter - Luis M Timmons - 11/19/2022 2:18 PM EST Tc from [facility] requesting x ray result for pt and also requesting a follow up regarding to pt. Please contact [facility]hu at [phone] documented in this encounter Plan of Treatment Upcoming Encounters Date Type Department Care Team (Late st Contact Info) Description 06/20/2025 3:15 PM EDT Office Visit [facility] CHC MED & PEDS [address] [place] [address] Pam Avilez, TAX ACCOUNTING MANAGER [address] [place] [address] 09/14/2025 11:00 AM EST Office Visit [facility] OPTOMETRY [address] [place] [address] Montez, Mariposa, OD [address] [place] [address] documented as of this encounter Visit Diagnoses Not on filedocumented in this encounter Additional Health Concerns Assessment Noted Time PHQ-9 Depression Total Score: 24 10/02/ 022 2:21 PM EST documented as of this encounter Care Teams Investor Relations Coordinator Relationship Specialty Start Date End Date Pam Avilez FNP [address] [place] [address] PCP - General Family Medicine 08/28/22 Dionisio James DPM [address] [place] [address] Podiatry 10/08/24 documented as of this encounter
--- OUTSIDE RECORDS SUMMARY | 2025-06-16 17:25 | XMS_ITS | Encounter Summary ---
Author Organization [employer] Address [address] [place] [address] 7t [place] [address] Care Team Providers Care Certified Phlebotomist Name Role Phone Pam Avilez Primary Care Provider Dionisio James DPM Unavailable Reason for Visit * Reason Comments Med Refill Encounter Details Date Type Department Care Team ([facility] st Contact Info) Description 11/19/2022 Refill [facility] MEDICINE [address] [place] [address] Pam Avilez FNP [address] [place], [place] [phone] Anxiety and depression Social History Tobacco Use [...] encounter Miscellaneous Notes * Telephone Encounter - Sherly Porter LPN - 11/29/2022 2:51 PM EST It looks like a form came in but it is for limitations and restrictions, two forms with different dates which would have to be referred back to physical therapy and occupational therapy but we are going to fill in the papers then send up for your signature unless you want to fill them in with a more descriptive/detailed narrative ? Please let me know before we start the paperwork on Friday12/02/22. * Telephone Encounter - Sherly Porter LPN - 11/19/2022 10:41 AM EST Claim# [id number], spk w/ [employer] expl. events yesterday. Expl. checked with HIM - (Barbara Ventura) did not receive fax request for med recs on this patient 11/11/22. Requesting re-fax to [phone] Attn this machine sign writer and send any other forms needed for extension. Pending receipt of paperwork for processingasap. documented in this encounter Plan of Treatment Upcoming Encounters Date Type Department Care Team (Late st Contact Info) Description 06/20/2025 3:15 PM EDT Office Visit [facility] CHC MED & PEDS [address] [place] [address] Pam Avilez FNP [address] [place] [address] 09/14/2025 11:00 AM EST Office Visit [facility] OPTOMETRY [address] [place] [address] Mariposa Herrmann, OD [address] [place] [address] documented as of this encounter Visit Diagnoses Diagnosis Anxiety and depression documented in this encounter Additional Health Concerns Assessment Noted Time PHQ-9 Depression Total Score: 24 10/02/ 022 2:21 PM EST documented as of this encounter Care Teams Certified Phlebotomist Relationship Specialty Start Date End Date Pam Avilez FNP [address] [place] [address] PCP - General Family Medicine 08/28/22 Dionisio James DPM [address] [address] Podiatry 10/08/24 documented as of this encounter
--- OUTSIDE RECORDS SUMMARY | 2025-06-16 17:25 | XMS_ITS | Encounter Summary ---
Author Organization [employer] Address [address] [facility] 7t [place] [address] Care Team Providers Care Sheet Metal Duct Worker Supervisor Name Role Phone Pma Avilez Primary Care Provider [phone] Dionisio James DPM Unavailable [phone] Reason for Visit * Reason Onset Date Comments FYI 01/11/2025 Encounter Details Date Type Department Care Team (Late st Contact Info) Description 01/11/2025 Telephone [facility] MEDICINE [address] [place] [address] Pam Avilez FNP [address] [place], [place] [phone] Social History Tobacco Use Types Packs/Day Years [...] Recorded Patient Health Questionnaire-2 Score 1 10/08/2024 Sex and Gender Information Value Date Recorded Sex Assigned at Male 08/05/2022 10:15 AM EDT Legal Sex Male 10:15 AM EDT Gender Identity Male 11/04/2022 8:40 PM EST Sexual Orientation Choose not to disclose 2021 10:15 AM EDT documented as of this encounter Miscellaneous Notes * Telephone Encounter - Rasheed Radford - 01/11/2025 11:35 AM EDT Tc from OV with nani stating that when the sleep study gets done they need the new script with the info from the sleep study on there. Contact pt at [phone] documented in this encounter Plan of Treatment Upcoming Encounters Date Type Department Care Team ([facility] st Contact Info) Description 06/20/2025 3:15 PM EDT Office Visit [facility] CHC MED & PEDS 505 [place] [address] Pam Avilez, DRUG ABUSE TREATMENT SPECIALIST 505 [place] [address] 09/14/2025 11:00 AM EST Office Visit [facility] OPTOMETRY [address] [place] [address] Mariposa Herrmann, OD [address] [place] [address] documented as of this encounter Goals Goal [...] Time PHQ-9 Depression Total Score: 2 10/08/19 10:24 AM EST documented as of this encounter Care Teams Sheet Metal Duct Worker Supervisor Relationship Specialty Start Date End Date Pam Avilez FNP [address] [place] [address] PCP - General Family Medicine 08/28/22 Dionisio James DPM [address] [address] Podiatry 10/08/24 documented as of this encounter
--- OUTSIDE RECORDS SUMMARY | 2025-06-16 17:25 | XMS_ITS | Encounter Summary ---
Author Organization [employer] Address 75 [facility] 7t [place] [address] Care Team Providers Care Import/Export Agent Name Role Phone Pam Avilez Primary Care Provider [phone] Dionisio James DPM Unavailable [phone] Reason for Visit * Reason Onset Date Comments Call Back Request 09/08/2023 Encounter Details Date Type Department Care Team (Late st Contact Info) Description 09/08/2023 Telephone [facility] MEDICINE 230 [place] [address] Pam Avilez FNP [address] [place], [place] [phone] Call Back Request Social History Tobacco Use Types Packs/Day Years Used Date Smoking Tobacco: Never Passive Smoke Exposure: Never Smokeless Tobacco: Never Alcohol Use Standard Drinks/Week Comments Never 0 (1 standard drink = 0.6 oz pur e alcohol) Depression Answer Date Recorded Patient Health Questionnaire-9 Score 0 05/06/2023 Housing Stability Answer Date Recorded What is your housing situation today? I have adan mccullough 07/24/[address] you li ve. Do you have problems with any of the following? None of the above 07/24/2023 Food Insecurity Answer Date Recorded Within the past 12 months, y ou worried that your food would run out before you got money to buy more: Never True 07/24/2023 Within the past 12 months,th e food you bought just didn't last and you didn't have enough money to get more: Never True Transportation Answer Date Recorded In the past 12 months, has l ack of transportation kept you from medical appts, meetings, work or from getting things needed for daily living? No 07/24/2023 Utilities Answer Date Recorded In the past 12 months, has t he electric, gas, oil or water company threatened to shut off services in your home? No 07/24/2023 Depression Answer Date Recorded Patient Health Questionnaire-2 Score 0 05/06/2023 Sex and Gender Information Value Date Recorded Sex Assigned at Male 08/05/2022 10:15 AM EDT Legal Sex Male 10:15 AM EDT Gender Identity Male 11/04/2022 8:40 PM EST Sexual Orientation Choose not to disclose 2021 10:15 AM EDT documented as of this encounter Miscellaneous Notes * Telephone Encounter - Rere Wolfe RN - 09/10/2023 10:23 AM EST Returned call to pt regarding message below. Brief med review done over the phone with pt caregiver. Confirmed Fluoxetine med is in pt medbox. No further action required at this time. * Telephone Encounter - Ashtyn Damon - 09/08/2023 2:04 PM EST Tc from pt requesting med refill on anxiety medication, pt don't know the name of the medication and repairer typewriter don't see any possible anxiety med in pt chart, please call pt for clarifications. documented in this encounter Plan of Treatment Upcoming Encounters Date Type Department Care Team (Late st Contact Info) Description 06/20/2025 3:15 PM EDT Office Visit [facility] CHC MED & PEDS 505 [place] [address] Pam Avilez FNP 505 [place] [address] 09/14/2025 11:00 AM EST Office Visit [facility] OPTOMETRY 267 [place] [address] Mariposa Herrmann OD 230 [place] [address] documented as of this encounter Goals Goal Patient Goal Type Associated Problems Recent Progress Patient-Stated? Author Blood Pressure < 140/90 Blood Pressure 134/87(2024 10:55 AM EDT) No Ryan Espana PharmD Hemoglobin A1c < 7 Result Component 5.9( 4:08 PM EDT) No Ryan Espana, Denys documented as of this encounter Visit Diagnoses Not on filedocumented in this encounter Additional Health Concerns Assessment Noted Time PHQ-9 Depression Total Score: 0 05/06/20 23 2:06 PM EDT documented as of this encounter Care Teams Import/Export Agent Relationship Specialty Start Date End Date Pam Avilez FNP 230 [place] [address] PCP - General Family Medicine 08/28/22 Dionisio James DPM [address] [place] [address] Podiatry 10/08/24 documented as of this encounter
--- OUTSIDE RECORDS SUMMARY | 2025-06-16 17:25 | XMS_ITS | Encounter Summary ---
Author Organization [employer] Address 75 [facility] 7t [place] [address] Care Team Providers Care Pediatric Anesthesiologist Name Role Phone Pam Avilez PRISCA Primary Care Provider [phone] Dionisio James DPM Unavailable [phone] Reason for Visit * Reason Comments Med Refill Encounter Details Date Type Department Care Team ([facility] st Contact Info) Description 07/27/[address] [facility] MEDICINE [address] [place], [place] [phone] Ayleen Conklin DO 230 [place], [place] [phone] Social History Tobacco Use Types Packs/Day Years [...] Description 06/20/2025 3:15 PM EDT Office Visit [facility] CHC MED & PEDS 505 [place] [address] Pam Avilez FNP 505 [place] [address] 09/14/2025 11:00 AM EST Office Visit [facility] OPTOMETRY [address] [place] [address] Montez, Mariposa, OD 230 [place] [address] documented as of this encounter Visit Diagnoses Not on filedocumented in this encounter Additional Health Concerns Assessment Noted Time PHQ-9 Depression Total Score: 0 05/06/20 23 2:06 PM EDT documented as of this encounter Care Teams Pediatric Anesthesiologist Relationship Specialty Start Date End Date Pam Avilez FNP 230 [place] [address] PCP - General Family Medicine 08/28/22 Dionisio James DPM [address] [address] Podiatry 10/08/24 documented as of this encounter
--- OUTSIDE RECORDS SUMMARY | 2025-06-16 17:25 | XMS_ITS | Encounter Summary ---
Author Organization [employer] Address 75 [facility] 7t [place] [address] Care Team Providers Care Glass Technician/Installer Name Role Phone Pam Avilez Primary Care Provider [phone] Dionisio James DPM Unavailable [phone] Reason for Visit * Reason Onset Date Comments Results 11/23/2024 Encounter Details Date Type Department Care Team (Late st Contact Info) Description 11/23/2024 Telephone [facility] MEDICINE 230 [place] [address] Pam Avilez FNP [address] [place], [place] [phone] Results Social History Tobacco Use Types Packs/Day Years [...] encounter Miscellaneous Notes * Telephone Encounter - Chely Corea - 11/23/2024 2:59 PM EST TC from pt requesting call back regarding Results. Type of results: POCT Rapid covid , Rapid influenza, glucose Date when done: 10-20-2024 Facility: [facility] documented in this encounter Plan of Treatment Upcoming Encounters Date Type Department Care Team (Late st Contact Info) Description 06/20/2025 3:15 PM EDT Office Visit [facility] CHC MED & PEDS 505 [place] [address] Pam Avilez, ASSISTANT TERMINAL MANAGER 505 [place] [address] 09/14/2025 11:00 AM EST Office Visit [facility] OPTOMETRY [address] [place] [address] Mariposa Herrmann, OD [address] [place] [address] documented as of this encounter Goals Goal [...] documented as of this encounter Care Teams Glass Technician/Installer Relationship Specialty Start Date End Date Pam Avilez FNP 230 [place] [address] PCP - General Family Medicine 08/28/22 Dionisio James DPM [address] [address] Podiatry 10/08/24 documented as of this encounter
--- OUTSIDE RECORDS SUMMARY | 2025-06-16 17:25 | XMS_ITS | Encounter Summary ---
Author Organization [employer] Address [address] [place] [address] 7t [place] [address] Care Team Providers Care Quality Improvement Analyst Name Role Phone Pam Avilez PRISCA Primary Care Provider [phone] Dionisio James DPM Unavailable [phone] Reason for Visit * Reason Onset Date Comments rs missed appt impressions 01/10/2025 Encounter Details Date Type Department Care Team (Late st Contact Info) Description 01/10/2025 Telephone [facility] ADULT DENTAL 230 [place], [place] [phone] Trino Parker DDS 230 [place], [place] [phone] rs missed appt impressions Social History Tobacco Use Types Packs/Day Years [...] * Telephone Encounter - Jaci Spence - 01/10/2025 8:57 AM EDT Patient called in stating that he forgot about apptt today in the morning. It is easier in the afternoon. It is an impression for partials. documented in this encounter Plan of Treatment Upcoming Encounters Date Type Department Care Team (Late st Contact Info) Description 06/20/2025 3:15 PM EDT Office Visit [facility] CHC MED & PEDS 505 [place] [address] Pam Avilez, ENGINEERING AND OPERATIONS DIRECTOR 505 [place] [address] 09/14/2025 11:00 AM EST Office Visit [facility] OPTOMETRY [address] [place] [address] Mariposa Herrmann, OD [address] [place] [address] documented as of this encounter Goals Goal [...] documented as of this encounter Care Teams Quality Improvement Analyst Relationship Specialty Start Date End Date Pam Avilez FNP 230 [place] [address] PCP - General Family Medicine 08/28/22 Dionisio James DPM [address] [address] Podiatry 10/08/24 documented as of this encounter
--- OUTSIDE RECORDS SUMMARY | 2025-06-16 17:25 | XMS_ITS | Encounter Summary ---
Author Organization [employer] Address [address] [place] [address] 7 [place] [address] Care Team Providers Care A R Collections Rep Name Role Phone Pam Avilez PRISCA Primary Care Provider [phone] Dionisio James DPM Unavailable [phone] Encounter Details Date Type Department Care Team (Late st Contact Info) Description 01/28/2025 Orders Only [facility] 230 [place] [address] Provider, MD Lise Social History Tobacco Use Types Packs/Day Years [...] Description 06/20/2025 3:15 PM EDT Office Visit [facility] CHC MED & PEDS 505 [place] [address] Pam Avilez, DEFECT CUTTER 505 [place] [address] 09/14/2025 11:00 AM EST Office Visit [facility] OPTOMETRY [address] [place] [address] Montez, Mariposa, OD [address] [place] [address] documented as of this encounter Goals Goal Patient Goal Type Associated Problems Recent Progress Patient-Stated? Author Blood Pressure < 140/90 Blood Pressure 134/87(2024 10:55 AM EDT) No Ryan Espana, PharmD Hemoglobin A1c < 7 Result Component 5.9( 4:08 PM EDT) No Ryan Espana PharmD documented as of this encounter Procedures Procedure Name Priority Date/Time Associated Diagnosis Comments XR FOOT 3 OR MORE VIEWS LEFT Routine 01/04/2025 11:09 AM EDT documented in this encounter Results * XR FOOT 3 OR MORE VIEWS LEFT (01/04/2025 11:09 AM EDT) Anatomical Region Laterality Modality Radiographic Trinidad ging us Historical Provider MD ROTHMAN XR PROCEDURES Final R esult documented in this encounter Visit Diagnoses Not on filedocumented in this encounter Additional Health Concerns Assessment Noted Time PHQ-9 Depression Total Score: 2 10/08/19 25 10:24 AM EST documented as of this encounter Care Teams A R Collections Rep Relationship Specialty Start Date End Date Pam Avilez FNP 230 [place] [address] PCP - General Family Medicine 08/28/22 Dionisio James DPM [address] [address] Podiatry 10/08/24 documented as of this encounter
--- OUTSIDE RECORDS SUMMARY | 2025-06-16 17:25 | XMS_ITS | Encounter Summary ---
Author Organization [employer] Address [address] [place] [address] 7t [place] [address] Care Team Providers Care Director Of Physician Practices Name Role Phone Pam Avilez Primary Care Provider [phone] Dionisio James DPM Unavailable Encounter Details Date Type Department Care Team (Late st Contact Info) Description 08/27/2022 Abstract [facility] MEDICINE [address] [place] [address] Pam Avilez FNP [address] [place], [place] [phone] Social History Tobacco Use Types Packs/Day Years Used Date Smoking Tobacco: Never Assessed Sex and Gender Information Value Date Recorded Sex Assigned at Male 08/05/2022 10:15 AM EDT Legal Sex Male 10:15 AM EDT Gender Identity Male 11/04/2022 8:40 PM EST Sexual Orientation Choose not to disclose 2021 10:15 AM EDT documented as of this encounter Last Filed Vital Signs Vital Sign Reading Time Taken Comments Blood Pressure 162/82 08/27/2022 10:34 AM EST Pulse 96 08/27/2022 10:34 AM EST Temperature - - Respiratory Rate - - Oxygen Saturation - - Inhaled Oxygen Concentration - - Weight 94.4 kg (208 lb 3.2 oz) 08/27/2022 10:34 AM EST Height 180.3 cm (5' 11 ) 08/27/2022 10:34 AM EST Body Mass Index 29.04 08/27/2022 10:34 AM EST documented in this encounter Plan of Treatment Upcoming Encounters Date Type Department Care Team (Late st Contact Info) Description 06/20/2025 3:15 PM EDT Office Visit [facility] CHC MED & PEDS 505 [place] [address] Pam Avilez FNP 505 [place], [place] 09/14/2025 11:00 AM EST Office Visit [facility] OPTOMETRY [address] [place] [address] Montez, Mariposa, OD 230 [place] [address] documented as of this encounter Visit Diagnoses Not on filedocumented in this encounter Care Teams Director Of Physician Practices Relationship Specialty Start Date End Date Pam Avilez FNP 230 [place] [address] PCP - General Family Medicine 08/28/22 Dionisio James DPM [address] [place] [address] Podiatry 10/08/24 documented as of this encounter
--- OUTSIDE RECORDS SUMMARY | 2025-06-16 17:25 | XMS_ITS | Encounter Summary ---
Author Organization [employer] Address [address] [place] [address] 7t [place] [address] Care Team Providers Care Passenger Solicitor Name Role Phone Pam Avilez Primary Care Provider [phone] Dionisio James DPM Unavailable [phone] Reason for Visit * Reason Comments Med Refill Encounter Details Date Type Department Care Team ([facility] Contact Info) Description 01/25/2024 Refill [facility] MED & PEDS [address] [place], [place] [phone] Pam Avilez FNP 505 [place], [place] [phone] Type 2 diabetes mellitus without complication, without long-term current use of insulin ([facility]) Social History Tobacco Use Types Packs/Day Years Used Date Smoking Tobacco: Never Passive Smoke Exposure: Never Smokeless Tobacco: Never Alcohol Use Standard Drinks/Week Comments Never 0 (1 standard drink = 0.6 oz pur e alcohol) Depression Answer Date Recorded Patient Health Questionnaire-9 Score 0 05/06/2023 Housing Stability Answer Date Recorded What is your housing situation today? I have adan sadia 12/05/[address] you li [...] 06/20/2025 3:15 PM EDT Office Visit [facility] CHC MED & PEDS [address] [place] [address] Pam Avilez, SHEET IRONWORKER 505 [place] [address] 09/14/2025 11:00 AM EST Office Visit [facility] OPTOMETRY [address] [place] [address] Montez, Mariposa, OD [address] [place] [address] documented as of this encounter Goals Goal Patient Goal Type Associated Problems Recent Progress Patient-Stated? Author Blood Pressure < 140/90 Blood Pressure 134/87(2024 10:55 AM EDT) No Ryan Espana PharmD Hemoglobin A1c < 7 Result Component 5.9( 4:08 PM EDT) No Ryan Espana PharmD documented as of this encounter Visit Diagnoses Diagnosis Type 2 diabetes mellitus without complication, without long-term current use of insulin ([facility]) documented in this encounter Additional Health Concerns Assessment Noted Time PHQ-9 Depression Total Score: 0 05/06/20 23 2:06 PM EDT documented as of this encounter Care Teams Passenger Solicitor Relationship Specialty Start Date End Date Pam Avilez FNP 230 [place] [address] PCP - General Family Medicine 08/28/22 Dionisio James DPM [address] [address] Podiatry 10/08/24 documented as of this encounter
--- OUTSIDE RECORDS SUMMARY | 2025-06-16 17:25 | XMS_ITS | Encounter Summary ---
Author Organization [employer] Address [address] [place] [address] 7t [place] [address] Care Team Providers Care Yard Goods Salesperson Name Role Phone aPm Avilez Primary Care Provider Dionisio James DPM Unavailable Reason for Visit * Reason Comments Med Refill Encounter Details Date Type Department Care Team ([facility] Contact Info) Description 10/30/2022 Refill [facility] MEDICINE [address] [place] [address] Pam Avilez FNP [address] [place], [place] [phone] Social History Tobacco Use Types Packs/Day Years [...] suspected to have Coronavirus/COVID-19? No / Unsure 10/02/2022 1:50 PM EST documented as of this encounter Plan of Treatment Upcoming Encounters Date Type Department Care Team (Late Contact Info) Description 06/20/2025 3:15 PM EDT Office Visit [facility] CHC MED & PEDS [address] [place] [address] Pam Avilez FNP [address] [place] [address] 09/14/2025 11:00 AM EST Office Visit [facility] OPTOMETRY [address] [place] [address] MontezJose dumasn, OD 230 [place] [address] documented as of this encounter Visit Diagnoses Not on filedocumented in this encounter Additional Health Concerns Assessment Noted Time PHQ-9 Depression Total Score: 24 022 2:21 PM EST documented as of this encounter Care Teams Yard Goods Salesperson Relationship Specialty Start Date End Date Pam Avilez FNP [address] [place] [address] PCP - General Family Medicine 08/28/22 Dionisio James DPM [address] [place] [address] Podiatry 10/08/24 documented as of this encounter
--- OUTSIDE RECORDS SUMMARY | 2025-06-16 17:25 | XMS_ITS | Encounter Summary ---
Author Organization [employer] Address [address] [facility] 7t [place] [address] Care Team Providers Care Complaint Supervisor Name Role Phone Pam Avilez Primary Care Provider [phone] Dionisio James DPM Unavailable [phone] Reason for Visit * Reason Onset Date Comments triage 12/10/2022 Encounter Details Date Type Department Care Team (Late st Contact Info) Description 12/10/2022 Telephone [facility] MEDICINE [address] [place] [address] Pam Avilez FNP [address] [place], [place] [phone] triage Social History Tobacco Use Types Packs/Day Years [...] suspected to have Coronavirus/COVID-19? No / Unsure 12/12/2022 10:28 AM EST documented as of this encounter Miscellaneous Notes * Telephone Encounter - Chelle Villalobos RN - 12/10/2022 4:24 PM EST Called pt. Via [employer] rail splitter [id number] [place]. Pt. 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 Pt. Has fu appt. On 12/12/22 in [facility] but, Pt. Is wondering what pain medications he can take for his severe arm pain due to his multiple Diagnoses. Please look at DX. List and advise pt. On what pain medication would be best to take and safe. Please have team nurse call pt. Back with decision. Protocol Used: Arm Pain (Adult) Protocol-Based Disposition: Go to Office or Video Visit Now- pt. Has fu appt. On 12/12/22 but wants medication prior to appt. Pain 07/15. Positive Triage Question: * Severe pain (e.g., excruciating, unable to do any normal activities) * All higher-acuity triage questions were negative * Telephone Encounter - Ulises Rodriguez - 12/10/2022 4:19 PM EST Symptom: Arm Pain - Not From Injury Outcome: Schedule an urgent appointment (within 1 hour) or talk to a nurse or provider soon Reason: Severe pain now The caller accepted this outcome speaks norwegian documented in this encounter Plan of Treatment Upcoming Encounters Date Type Department Care Team (Late st Contact Info) Description 06/20/2025 3:15 PM EDT Office Visit [facility] MED & PEDS 505 [place] [address] Winstonen, Pam, RUBBER TUBING BACKER [address] [place] [address] 09/14/2025 11:00 AM EST Office Visit [facility] OPTOMETRY [address] [place] [address] Montez, Mariposa, OD [address] [place] [address] documented as of this encounter Visit Diagnoses Not on filedocumented in this encounter Additional Health Concerns Assessment Noted Time PHQ-9 Depression Total Score: 24 022 2:21 PM EST documented as of this encounter Care Teams Complaint Supervisor Relationship Specialty Start Date End Date Pam Avilez FNP 230 [place] [address] PCP - General Family Medicine 08/28/22 Dionisio James DPM [address] [address] Podiatry 10/08/24 documented as of this encounter
== END 2025-06-16 14:00 | disposition home or self-care (01) ==
LOC: HO.HCS 13:28
PROVIDERS: PCP Registered Nurse; Visit Provider Internal Medicine
DX: R07.2 Precordial pain (principal); I10 Essential (primary) hypertension; E11.9 Type 2 diabetes mellitus without complications
CPT/HCPCS: 99214

== ENCOUNTER → 2025-06-16 13:27 | Outpatient (BNVA) | payer MEDICAID, SELFPAY | PROVIDERS: PCP Registered Nurse; Visit Provider Internal Medicine | DX: Z71.2 Person consulting for explanation of examination or test findings (principal); R07.2 Precordial pain; I10 Essential (primary) hypertension; E11.9 Type 2 diabetes mellitus without complications | CPT/HCPCS: 99212 ==